=== PATIENT | female | born 1990 | race Caucasian/White ===

== ENCOUNTER → 2017-03-27 | Outpatient (CLI) | payer OTHER ==
[2017-03-27 15:01] LABS: Basophils % (A) 1 %; CH 30.2; CHCM 33.8; Eosinophils % (A) 1 %; HCT 35.6 % (34.0-46.0); HDW 2.64; HGB 12.1 gm/dL (11.4-16.0); Luc # (Auto) 0.07; Luc % (Auto) 2; Lymphocytes # (A) 1.2 k/uL (1.0-4.8); Lymphocytes % (A) 37 %; MCH 30.5 pg (25.0-35.0); MCV 89.7 fL (80.0-100.0); Mean Platelet Volume 8.7; Monocytes # (A) 0.2 k/uL (0-1.0); Monocytes % (A) 6 %; Neutrophils # (A) 1.7 k/uL (1.3-7.7); Neutrophils % (A) 53 %; RBC 3.97 m/uL (3.80-5.40); RDW 12.9 % (11.5-15.5); WBC 3.2 k/uL (3.8-10.6); WBC (Perox) 3.28
[2017-03-27 16:15] LABS: ALT 17 U/L (9-52); AST 15 U/L (14-36); Alkaline Phosphatase 30 U/L (38-126); Anion Gap 6 mmol/L; Blood Urea Nitrogen 19 mg/dL (7-17); Calcium 9.1 mg/dL (8.4-10.2); Carbon Dioxide 26 mmol/L (22-30); Chloride 109 mmol/L (98-107); Glucose 86 mg/dL (74-99); Non-African American GFR(MDRD) >60 (>60 ml/min/1.73 sqM); Potassium 4.2 mmol/L (3.5-5.1); Sodium 141 mmol/L (137-145); Total Bilirubin 0.4 mg/dL (0.2-1.3); Total Protein 6.6 g/dL (6.3-8.2)
[2017-03-27 16:47] LABS: Hepatitis B Surface Ag Index 0.07
[2017-03-27 19:10] LABS: Treponemal Ab Non-Reactive (Non-Reactive)
[2017-03-27 19:39] LABS: HSV I IgG Interp POSITIVE (NEGATIVE); HSV II IgG Interp NEGATIVE (NEGATIVE)
[2017-03-28 07:56] LABS: HIV-1/HIV-2 Ab Screen NONREAC (NON REAC)
== END | disposition home or self-care (01) ==
LOC: LABWHC1 14:29
PROVIDERS: ATTEND Obstetrics & Gynecology
DX: F33.1 Major depressive disorder, recurrent, moderate (principal); Z11.3 Encounter for screening for infections with a predominantly sexual mode of transmission
CPT/HCPCS: 36415; 80053; 84439; 84443; 85025; 86695; 86696; 86780; 87340; 87389

== ENCOUNTER 2019-03-25 19:23 | Emergency (ER) | payer OTHER ==
[2019-03-25 19:51] VITALS: TEMP 98.6
[2019-03-25 20:18] LABS: Amorphous Sediment,Urine Rare /hpf; Appearance,Urine Cloudy (Clear); Bacteria,Urine Occasional /hpf; Bilirubin,Urine 3+ (Negative); Blood,Urine Negative (Negative); Color,Urine Dark Brown; Glucose,Urine (UA) Negative (Negative); Ketones,Urine Negative (Negative); Leukocyte Esterase,Urine Trace (Negative); Mucus,Urine Many /hpf; Nitrite,Urine Positive (Negative); PH, Urine 8.5 (5.0-8.0); Protein,Urine 2+ (Negative); RBC,Urine 3 /hpf (0-5); Specific Gravity,Urine 1.027 (1.001-1.035); Squamous Epithelial Cell,Urine 12 /hpf (0-4); Urobilinogen,Urine >12.0 mg/dL (<2.0)
[2019-03-25] MEDS ORDERED: SULFAMETH-TMP DS STARTER PACK 2 TAB BTL PO STA (20:35)
[2019-03-25] MEDS ORDERED: CEPHALEXIN 500MG STARTER PACK 4 CAP BTL PO STA (20:36)
--- NOTE | 2019-03-25 20:41 | ED ---
General Adult HPI - General Chief complaint: Urogenital Stated complaint: UTI Time Seen by Provider: 03/25/19 20:27 Source: patient, RN notes reviewed Mode of arrival: ambulatory Limitations: no limitations - History of Present Illness Initial comments: Patient is a pleasant 28-year-old female presenting to the emergency Department with complaints of dysuria. Symptoms have been present for over a week now. Patient has been taking [id number] Azo without much improvement of symptoms. Patient complains of urinary frequency and urgency. Patient has some mild dysuria. No suprapubic pain or abdominal pain. No nausea vomiting. No color change of the skin. - Related Data Home Medications Medication Instructions Recorded Confirmed ALPRAZolam [Xanax] 2 mg PO TID PRN 06/17/16 06/17/16 Citalopram Hydrobromide 20 mg PO DAILY 06/17/16 06/17/16 [Citalopram HBr] Ibuprofen [Motrin] 800 mg PO Q6HR PRN 06/17/16 06/17/16 Previous Rx's Medication Instructions Recorded ALPRAZolam [Xanax] 0.5 mg PO DAILY PRN #5 tablet 06/17/16 Cephalexin [Keflex] 500 mg PO Q12HR #7 cap 06/17/16 Ibuprofen [Motrin] 800 mg PO Q8HR PRN #10 tab 06/17/16 Loratadine-Pseudoeph 5-120 mg 1 each PO Q12HR #7 tab 06/17/16 [Claritin-D 12 HR] Cephalexin [Keflex] 500 mg PO QID #40 cap 03/25/19 Allergies Allergy/AdvReac Type Severity Reaction Status Date / Time No Known Allergies Allergy Verified 03/25/19 19:51 Review of Systems ROS Statement: Those systems with pertinent positive or pertinent negative responses have been documented in the HPI. ROS Other: All systems not noted in ROS Statement are negative. Constitutional: Denies: fever Eyes: Denies: eye pain ENT: Denies: ear pain Respiratory: Denies: cough Cardiovascular: Denies: chest pain Endocrine: Denies: fatigue Gastrointestinal: Denies: abdominal pain, vomiting Genitourinary: Reports: urgency, dysuria, frequency Musculoskeletal: Denies: back pain Skin: Denies: rash Neurological: Denies: weakness Past Medical History Past Medical History: No Reported History Past Surgical History: No Surgical Hx Reported Past Psychological History: Anxiety, Depression Smoking Status: Current every day smoker Past Alcohol Use History: None Reported Past Drug Use History: None Reported General Exam Limitations: no limitations General appearance: alert, in no apparent distress Head exam: Present: atraumatic Eye exam: Present: normal appearance. Absent: scleral icterus ENT exam: Present: normal oropharynx Neck exam: Present: normal inspection Respiratory exam: Present: normal lung sounds bilaterally Cardiovascular Exam: Present: regular rate, normal rhythm Expanded Peripheral pulses: 2+: Dorsalis Pedis (R), Dorsalis Pedis (L) GI/Abdominal exam: Present: soft. Absent: distended, tenderness, organomegaly Extremities exam: Present: normal inspection. Absent: pedal edema, calf tend erness Neurological exam: Present: alert Psychiatric exam: Present: normal affect, normal mood Skin exam: Present: normal color. Absent: rash Course Vital Signs 03/25/19 19:48 Temperature 98.6 F Pulse Rate 78 Respiratory 18 Rate Blood Pressure 124/78 O2 Sat by Pulse 98 Oximetry - Reevaluation(s) Reevaluation #1: 03/25/19 20:44 Urine will be added prior to patient discharge and nursing staff will update patient Medical Decision Making - Medical Decision Making Patient advised specifically of need to follow-up regarding bilirubin and urobilinogen in the urine and need for further testing for this. - Lab Data Lab Results 03/25/19 Range/Units 20:00 Urine Color Dark Brown Urine Appearance Cloudy H (Clear) Urine pH 8.5 H (5.0-8.0) Ur Specific [place] 1.027 (1.001-1.035) Urine Protein 2+ H (Negative) Urine Glucose (UA) Negative (Negative) Urine Ketones Negative (Negative) Urine Blood Negative (Negative) Urine Nitrite Positive H (Negative) Urine Bilirubin 3+ H (Negative) Urine Urobilinogen >12.0 (<2.0) mg/dL Ur Leukocyte Esterase Trace H (Negative) Urine RBC 3 (0-5) /hpf Urine WBC 35 H (0-5) /hpf Ur Squamous Epith Cells 12 H (0-4) /hpf Amorphous Sediment Rare H (None) /hpf Urine Bacteria Occasional H (None) /hpf Urine Mucus Many H (None) /hpf Disposition Clinical Impression: Cystitis Disposition: HOME SELF-CARE Condition: Stable Instructions (If sedation given, give patient instructions): Urinary Tract Infection in Women (ED) Additional Instructions: Please follow-up with primary care physician in the next day or 2 for recheck. Return for fevers, abdominal pain, color change of the skin, uncontrolled vomiting, worsening symptoms or other concerns. Discontinue Azo. Please have primary care physician do further evaluation including repeat urinalysis, and blood work including evaluation for liver disease. Prescriptions: Cephalexin [Keflex] 500 mg PO QID #40 cap Is patient prescribed a controlled substance at d/c from ED?: No Referrals: Adrian Lopes DO [Primary Care Provider] - 1-2 days Time of Disposition: 20:40
[2019-03-25 21:12] VITALS: BP 133/75; PULSE 81; RESP 16
== END 2019-03-25 21:10 | disposition home or self-care (01) ==
LOC: EC 19:23
DX: N30.90 Cystitis, unspecified without hematuria (principal); F32.9 Major depressive disorder, single episode, unspecified; F41.9 Anxiety disorder, unspecified; F17.200 Nicotine dependence, unspecified, uncomplicated; Z79.899 Other long term (current) drug therapy
CPT/HCPCS: 81001; 81025; 87077; 87086; 87186; 99283

== ENCOUNTER 2019-04-13 20:07 | Emergency (ER) | payer OTHER ==
[2019-04-13] MEDS ORDERED: SODIUM CHLORIDE 0.9% 1,000 ML IV STA (20:30)
--- NOTE | 2019-04-13 21:05 | ED ---
General Adult HPI - General Chief complaint: Abdominal Pain Stated complaint: Abd Pain Time Seen by Provider: 04/13/19 20:22 Source: patient, family, RN notes reviewed, old records reviewed Mode of arrival: ambulatory Limitations: no limitations - History of Present Illness Initial comments: 28-year-old female patient with no pertinent past medical history presents to ED with generalized abdominal pain. Patient reports this has been waxing and waning for approximately 3 months. Patient reports that after she eats she feels bloated and has abdominal pain. Patient denies any focal areas of abdominal tenderness. Patient reports nausea without emesis. Patient also reports that she is currently being treated for a urinary tract infection. Denies any other complaints. Systemic: Pt denies fatigue, fever/chills, rash. Pt denies weakness, night swe ats, weight loss. Neuro: Pt denies headache, visual disturbances, syncope or pre-syncope. HEENT: Pt denies ocular discharge or irritation, otalgia, rhinorrhea, pharyngitis or notable lymphadenopathy. Cardiopulmonary: Pt denies chest pain, SOB, heart palpitations, dyspnea on exertion. Abdominal/GI: Pt denies abdominal pain, n/v/d. : Pt denies dysuria, burning w/ urination, frequency/urgency. Denies new onset urinary or bowel incontinence. MSK: Pt denies myalgia, loss of strength or function in extremities. Neuro: Pt denies new onset weakness, paresthesias. - Related Data Home Medications Medication Instructions Recorded Confirmed Falmina 0.1-20mg 1 tab PO DAILY 03/25/19 04/13/19 Cephalexin [Keflex] 500 mg PO Q6H 04/13/19 04/13/19 Dextroamphetamine/Amphetamine 30 mg PO DAILY 04/13/19 04/13/19 [Adderall] Venlafaxine HCl [Effexor XR] 75 mg PO DAILY 04/13/19 04/13/19 Previous Rx's Medication Instructions Recorded Metoclopramide HCl [Reglan] 10 mg PO Q24HR PRN 7 Days #7 tab 04/13/19 Allergies Allergy/AdvReac Type Severity Reaction Status Date / Time No Known Allergies Allergy Verified 04/13/19 21:30 Review of Systems ROS Statement: Those systems with pertinent positive or pertinent negative responses have been documented in the HPI. ROS Other: All systems not noted in ROS Statement are negative. Past Medical History Past Medical History: No Reported History History of Any Multi-Drug Resistant Organisms: None Reported Past Surgical History: No Surgical Hx Reported Past Psychological History: Anxiety, Depression Smoking Status: Current some day smoker Past Alcohol Use History: Occasional Past Drug Use History: None Reported General Exam - General Exam Comments Initial Comments: Constitutional: NAD, AOX3, Pt has pleasant affect. HEENT: NC/AT, trachea midline, neck supple, no lymphadenopathy. Posterior pharynx non erythematous, without exudates. External ears appear normal, without discharge. Mucous membranes moist. Eyes PERRLA, EOM intact. There is no scleral icterus. No pallor noted. Cardiopulmonary: RRR, no murmurs, rubs or gallops, no JVD noted. Lungs CTAB in anterior and posterior stuart. No peripheral edema. Abdominal exam: Abdomen soft and non-distended. Generalized mild abdominal tenderness. No focal area of abdominal tenderness. No guarding or rigidity no ecchymoses.. Bowel sounds active in LLQ. No hepatosplenomegaly. No ecchymosis Neuro: CN II-XII grossly intact. No nuchal rigidity. No raccon eyes, no garrido sign, no hemotympanum. No cervical spinal tenderness. MSK: No posterior calf tenderness bilaterally, homans sign negative bilaterally. Posterior tibialis and radial pulse +2 bilaterally. Sensation intact in upper and lower extremities. Full active ROM in upper and lower extremities, 5/5 stregnth. Limitations: no limitations Course Vital Signs 04/13/19 04/13/19 20:08 22:00 Temperature 97.9 F Pulse Rate 70 68 Respiratory 20 18 Rate Blood Pressure 135/66 117/78 O2 Sat by Pulse 96 98 Oximetry Medical Decision Making - Medical Decision Making 28-year-old female patient with no pertinent past medical history presents to ED with generalized abdominal pain. Patient reports this has been waxing and waning for approximately 3 months. Patient reports that after she eats she feels bloated and has abdominal pain. Patient denies any focal areas of abdominal tenderness. Patient reports nausea without emesis. Patient also reports that she is currently being treated for a urinary tract infection. Denies any other complaints. Pt VSS, afebrile. Physical exam displayed: Abdomen soft and non-distended. Generalized mild abdominal tenderness. No focal area of abdominal tenderness. No guarding or rigidity no ecchymoses. Laboratory investigations revealed nonpassive CBC, CMP. Lactic acid within normal limits. Lipase within normal limits. UA noncompressive will be cultured. CT and pelvis displayed no evidence of renal stone or obstruction, some appendicitis. Dilated stomach related to gastric outlet obstruction or gastroparesis. Patient does report that she did eat prior to coming to ER. Patient discharged with GI follow-up. Patient will be prescribed Reglan for possible gastroparesis. Case discussed with Dr. Espinoza. - Lab Data Result diagrams: 04/13/19 20:52 04/13/19 20:52 Lab Results 04/13/19 04/13/19 04/13/19 Range/Units 20:52 20:52 20:52 WBC 5.5 (3.8-10.6) k/uL RBC 4.62 (3.80-5.40) m/uL Hgb 12.9 (11.4-16.0) gm/dL Hct 38.3 (34.0-46.0) % MCV 82.9 (80.0-100.0) fL MCH 27.9 (25.0-35.0) pg MCHC 33.6 (31.0-37.0) g/dL RDW 13.5 (11.5-15.5) % Plt Count 194 (150-450) k/uL Neutrophils % 61 % Lymphocytes % 28 % Monocytes % 7 % Eosinophils % 2 % Basophils % 1 % Neutrophils # 3.4 (1.3-7.7) k/uL Lymphocytes # 1.5 (1.0-4.8) k/uL Monocytes # 0.4 (0-1.0) k/uL Eosinophils # 0.1 (0-0.7) k/uL Basophils # 0.0 (0-0.2) k/uL Sodium 141 (137-145) mmol/L Potassium 4.4 (3.5-5.1) mmol/L Chloride 110 H (98-107) mmol/L Carbon Dioxide 24 (22-30) mmol/L Anion Gap 7 mmol/L BUN 18 H (7-17) mg/dL Creatinine 0.73 (0.52-1.04) mg/dL Est GFR (CKD-EPI)AfAm >90 (>60 ml/min/1.73 sqM) Est GFR (CKD-EPI)NonAf >90 (>60 ml/min/1.73 sqM) Glucose 103 H (74-99) mg/dL Plasma Lactic Acid Mohan (0.7-2.0) mmol/L Calcium 9.3 (8.4-10.2) mg/dL Total Bilirubin 0.2 (0.2-1.3) mg/dL AST 18 (14-36) U/L ALT 15 (9-52) U/L Alkaline Phosphatase 33 L (38-126) U/L Total Protein 6.8 (6.3-8.2) g/dL Albumin 4.1 (3.5-5.0) g/dL Lipase 102 (23-300) U/L Urine Color Urine Appearance (Clear) Urine pH (5.0-8.0) Ur Specific [place] (1.001-1.035) Urine Protein (Negative) Urine Glucose (UA) (Negative) Urine Ketones (Negative) Urine Blood (Negative) Urine Nitrite (Negative) Urine Bilirubin (Negative) Urine Urobilinogen (<2.0) mg/dL Ur Leukocyte Esterase (Negative) Urine RBC (0-5) /hpf Urine WBC (0-5) /hpf Ur Squamous Epith Cells (0-4) /hpf Calcium Oxalate Crystal (None) /hpf Amorphous Sediment (None) /hpf Urine Mucus (None) /hpf Urine HCG, Qual Not Detected (Not Detectd) 04/13/19 04/13/19 Range/Units 20:52 20:52 WBC (3.8-10.6) k/uL RBC (3.80-5.40) m/uL Hgb (11.4-16.0) gm/dL Hct (34.0-46.0) % MCV (80.0-100.0) fL MCH (25.0-35.0) pg MCHC (31.0-37.0) g/dL RDW (11.5-15.5) % Plt Count (150-450) k/uL Neutrophils % % Lymphocytes % % Monocytes % % Eosinophils % % Basophils % % Neutrophils # (1.3-7.7) k/uL Lymphocytes # (1.0-4.8) k/uL Monocytes # (0-1.0) k/uL Eosinophils # (0-0.7) k/uL Basophils # (0-0.2) k/uL Sodium (137-145) mmol/L Potassium (3.5-5.1) mmol/L Chloride (98-107) mmol/L Carbon Dioxide (22-30) mmol/L Anion Gap mmol/L BUN (7-17) mg/dL Creatinine (0.52-1.04) mg/dL Est GFR (CKD-EPI)AfAm (>60 ml/min/1.73 sqM) Est GFR (CKD-EPI)NonAf (>60 ml/min/1.73 sqM) Glucose (74-99) mg/dL Plasma Lactic Acid Mohan 1.5 (0.7-2.0) mmol/L Calcium (8.4-10.2) mg/dL Total Bilirubin (0.2-1.3) mg/dL AST (14-36) U/L ALT (9-52) U/L Alkaline Phosphatase (38-126) U/L Total Protein (6.3-8.2) g/dL Albumin (3.5-5.0) g/dL Lipase (23-300) U/L Urine Color Yellow Urine Appearance Clear (Clear) Urine pH 6.0 (5.0-8.0) Ur Specific [place] 1.031 (1.001-1.035) Urine Protein Trace H (Negative) Urine Glucose (UA) Negative (Negative) Urine Ketones Negative (Negative) Urine Blood Small H (Negative) Urine Nitrite Negative (Negative) Urine Bilirubin Negative (Negative) Urine Urobilinogen 2.0 (<2.0) mg/dL Ur Leukocyte Esterase Small H (Negative) Urine RBC 2 (0-5) /hpf Urine WBC 4 (0-5) /hpf Ur Squamous Epith Cells 10 H (0-4) /hpf Calcium Oxalate Crystal Rare H (None) /hpf Amorphous Sediment Rare H (None) /hpf Urine Mucus Occasional H (None) /hpf Urine HCG, Qual (Not Detectd) Disposition Clinical Impression: Abdominal pain Disposition: HOME SELF-CARE Condition: Stable Instructions (If sedation given, give patient instructions): Abdominal Pain (ED) Additional Instructions: Patient to adhere to previously discussed treatment plan and will take medication(s) as directed. Patient to follow up with PCP in 1-2 days. Patient to return to ED if symptoms do not improve. Follow-up with primary care provider and GI consult tomorrow. Take medication as directed. Return to ER condition worsens. Return to ER if you began vomiting. Prescriptions: Metoclopramide HCl [Reglan] 10 mg PO Q24HR PRN 7 Days #7 tab PRN Reason: Nausea Is patient prescribed a controlled substance at d/c from ED?: No Referrals: Adrian Lopes DO [Primary Care Provider] - 1-2 days Aubrey Armas MD [STAFF PHYSICIAN] - 1-2 days
[2019-04-13 21:13] LABS: Amorphous Sediment,Urine Rare /hpf; Appearance,Urine Clear (Clear); Bilirubin,Urine Negative (Negative); Blood,Urine Small (Negative); Calcium Oxalate Crystals,Urine Rare /hpf; Color,Urine Yellow; Glucose,Urine (UA) Negative (Negative); Ketones,Urine Negative (Negative); Leukocyte Esterase,Urine Small (Negative); Mucus,Urine Occasional /hpf; Nitrite,Urine Negative (Negative); Protein,Urine Trace (Negative); RBC,Urine 2 /hpf (0-5); Specific Gravity,Urine 1.031 (1.001-1.035); Squamous Epithelial Cell,Urine 10 /hpf (0-4); WBC,Urine 4 /hpf (0-5)
[2019-04-13 21:17] LABS: Basophils % (A) 1 %; Eosinophils # (A) 0.1 k/uL (0-0.7); Eosinophils % (A) 2 %; HCT 38.3 % (34.0-46.0); HGB 12.9 gm/dL (11.4-16.0); Lymphocytes # (A) 1.5 k/uL (1.0-4.8); Lymphocytes % (A) 28 %; MCH 27.9 pg (25.0-35.0); MCHC 33.6 g/dL (31.0-37.0); MCV 82.9 fL (80.0-100.0); Mean Platelet Volume 8.5; Monocytes # (A) 0.4 k/uL (0-1.0); Monocytes % (A) 7 %; Neutrophils # (A) 3.4 k/uL (1.3-7.7); Neutrophils % (A) 61 %; Platelet Count 194 k/uL (150-450); RBC 4.62 m/uL (3.80-5.40); RDW 13.5 % (11.5-15.5); WBC 5.5 k/uL (3.8-10.6)
[2019-04-13 21:23] LABS: ALT 15 U/L (9-52); AST 18 U/L (14-36); African American GFR (CKD) >90 (>60 ml/min/1.73 sqM); Albumin 4.1 g/dL (3.5-5.0); Alkaline Phosphatase 33 U/L (38-126); Anion Gap 7 mmol/L; Blood Urea Nitrogen 18 mg/dL (7-17); Calcium 9.3 mg/dL (8.4-10.2); Carbon Dioxide 24 mmol/L (22-30); Chloride 110 mmol/L (98-107); Glucose 103 mg/dL (74-99); Lipase 102 U/L (23-300); Potassium 4.4 mmol/L (3.5-5.1); Sodium 141 mmol/L (137-145); Total Bilirubin 0.2 mg/dL (0.2-1.3); Total Protein 6.8 g/dL (6.3-8.2)
--- NOTE | 2019-04-13 21:43 | CT ---
EXAMINATION TYPE: CT abdomen pelvis w con DATE OF EXAM: 04/13/2019 COMPARISON: None HISTORY: Rt flank pain CT DLP: 740.3 mGycm Automated exposure control for dose reduction was used. TECHNIQUE: Helical acquisition of images was performed from the lung bases through the pelvis. CONTRAST: Performed without Oral Contrast and with IV Contrast, patient injected with 100 mL of Isovue 300. FINDINGS: Lung bases are clear. There is no pleural effusion. Heart size is normal. Stomach is large. Liver spleen pancreas appear normal. Bile ducts are not dilated. Gallbladder is contracted. There is no adrenal mass. Kidneys show satisfactory contrast opacification. There is no hydronephrosi s. There is no retroperitoneal adenopathy. Bladder distends smoothly. Uterus is anteverted. There is no free fluid in the pelvis. There is no inguinal hernia. There is no sign of a pelvic mass. Appendix is not seen. There is no sign of thickened appendix. The lumbar vertebra have normal spacing and alignment. Bony pelvis is intact. There is no bony destructive process. IMPRESSION: NO EVIDENCE OF RENAL STONE OR OBSTRUCTION. NO SIGN OF APPENDICITIS. APPENDIX NOT SEEN. DILATED STOMACH COULD RELATE TO GASTRIC OUTLET OBSTRUCTION OR GASTROPARESIS.
[2019-04-13 22:01] VITALS: RESP 18
[2019-04-13 22:42] VITALS: BP 116/80; PULSE 63; TEMP 98.2
== END 2019-04-13 22:41 | disposition home or self-care (01) ==
LOC: EC 20:07
DX: R10.84 Generalized abdominal pain (principal); R14.0 Abdominal distension (gaseous); R11.0 Nausea; R10.817 Generalized abdominal tenderness; K31.89 Other diseases of stomach and duodenum; N39.0 Urinary tract infection, site not specified; F41.9 Anxiety disorder, unspecified; F32.9 Major depressive disorder, single episode, unspecified; F17.200 Nicotine dependence, unspecified, uncomplicated; Z79.899 Other long term (current) drug therapy
CPT/HCPCS: 36415; 80053; 83605; 83690; 85025; 81001; 81025; 74177; 99284; 96360; 96361; Q9967

== ENCOUNTER 2019-10-31 17:11 | Emergency (ER) | payer OTHER | END 2019-10-31 17:50 | disposition left against medical advice (07) | LOC: EC 17:11 | DX: K92.2 Gastrointestinal hemorrhage, unspecified (principal); Z53.21 Procedure and treatment not carried out due to patient leaving prior to being seen by health care provider | CPT/HCPCS: 99499 ==

== ENCOUNTER 2020-06-05 13:30 | Inpatient (IN) | payer MEDICAID, OTHER ==
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
[2020-06-05 15:24] LABS: Amphetamine Screen,Urine Detected (NotDetected); Barbiturate Screen,Urine Not Detected (NotDetected); Benzodiazepines Screen,Urine Not Detected (NotDetected); Cocaine Screen,Urine Not Detected (NotDetected); Methadone Screen, Urine Not Detected (NotDetected); Opiate Screen,Urine Not Detected (NotDetected); Oxycodone Screen, Urine Not Detected (NotDetected); Phencyclidine Screen,Urine Not Detected (NotDetected); Tricyclic Antidepressant,Urine Not Detected (NotDetected); Urn Cannabinoid Scrn Not Detected (NotDetected)
[2020-06-05] MEDS ORDERED: LORazepam 2 MG/ML INJ IM STA (15:46)
[2020-06-05] MEDS ORDERED: ZIPRASIDONE 20 MG VIAL IM STA (16:19)
[2020-06-06] MEDS ORDERED: ZIPRASIDONE 20 MG VIAL IM PRN (05:56)
[2020-06-06] MEDS: LORazepam 1 MG TAB PO PRN ×2 (07:15→22:03)
[2020-06-06 08:30] LABS: Appearance,Urine Turbid (Clear); Bilirubin,Urine Negative (Negative); Blood,Urine Large (Negative); Color,Urine Light Orange; Glucose,Urine (UA) Negative (Negative); Ketones,Urine Trace (Negative); Leukocyte Esterase,Urine Large (Negative); Mucus,Urine Few /hpf; Nitrite,Urine Negative (Negative); PH, Urine 6.5 (5.0-8.0); Protein,Urine 3+ (Negative); RBC,Urine >182 /hpf (0-5); Specific Gravity,Urine 1.025 (1.001-1.035); Squamous Epithelial Cell,Urine 14 /hpf (0-4); WBC,Urine >182 /hpf (0-5)
[2020-06-06] MEDS ORDERED: VENLAFAXINE HCL ER 75 MG CAP PO SCH (09:00)
[2020-06-06] MEDS ORDERED: PHENAZOPYRIDINE 100 MG TAB PO PRN (09:29)
[2020-06-06] MEDS: NICOTINE 14MG/24HR PATCH TRANSDERM SCH (10:34)
[2020-06-06] MEDS: NITROFURANTOIN MONOHYD/M-CRYST 100 MG CAP PO SCH ×2 (10:34→21:46)
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
[2020-06-06] MEDS: OLANZapine 5 MG TAB PO SCH (21:46)
[2020-06-06] MEDS: ACETAMINOPHEN TAB 325 MG TAB PO PRN (21:47)
--- NOTE | 2020-06-07 01:56 | P.MDCNMH ---
History of Present Illness H&P Date: 06/06/20 Chief Complaint: Suicidal ideation Patient is a 30-year-old female with a known history of anxiety/depression and methamphetamine use was brought to ER by her father due to bizarre behavior and saying crazy things. As per her father patient was also suicidal. Patient does have chronic polysubstance abuse and also alcohol abuse. Patient is currently admitted to inpatient psychiatric unit. Currently patient denied any complaints of chest pain or shortness of breath. No complaints of abdominal pain, nausea vomiting or diarrhea or dysuria. Patient says she has some lower abdominal pain. Patient also complaining of left ear pain but denies any discharge. Urinalysis showed turbid with large leukocyte esterase with greater than 182 RBCs and WBCs. UDS is positive for amphetamines and methamphetamines. Review of Systems Constitutional: Patient denies any fever or chills . No generalized weakness or weight loss. Abdomen: Patient denied nausea vomiting and diarrhea and abdominal pain. Cardiovascular: Patient denies any chest pain or short of breath no palpitations. Respiratory: patient denied any cough is from production. No shortness of breath Neurologic: Patient denied any numbness or tingling headache. Musculoskeletal: Patient denies any complaints of joint swelling or deformity. Skin: Negative Psychiatric: Negative Endocrine: No heat or cold intolerance. No recent weight gain. Genitourinary: No dysuria or hematuria. All other 14 point ROS negative except the above Past Medical History Past Medical History: No Reported History History of Any Multi-Drug Resistant Organisms: None Reported Past Surgical History: No Surgical Hx Reported Past Psychological History: Anxiety, Depression Past Alcohol Use History: Occasional Past Drug Use History: Methamphetamine Medications and Allergies Home Medications Medication Instructions Recorded Confirmed Type Dextroamphetamine/Amphetamine 30 mg PO DAILY 04/13/19 06/05/20 History [Adderall] Venlafaxine HCl [Effexor XR] 150 mg PO DAILY 04/13/19 06/05/20 History Orsythia 0.1-0.02mg 1 tab PO DAILY 06/05/20 06/05/20 History Allergies Allergy/AdvReac Type Severity Reaction Status Date / Time No Known Allergies Allergy Verified 06/05/20 16:40 Physical Exam Vitals: Vital Signs Resp 06/05/20 16:04 20 Intake and Output 06/06/20 06/06/20 06/06/20 06:59 14:59 22:59 Other: Weight 59.421 kg PHYSICAL EXAMINATION: Patient is lying in the bed comfortably, no acute distress, awake alert and oriented.. HEENT: Normocephalic. Neck is supple. Pupils reactive. Nostrils clear. Oral cavity is moist. Left Ear exam reveal no drainage. Neck reveals no JVD, carotid bruits, or thyromegaly. CHEST EXAMINATION: Trachea is central. Symmetrical expansion. Lung stuart clear to auscultation and percussion. CARDIAC: Normal S1, S2 with no gallops. No murmurs ABDOMEN: Soft. Bowel sounds normal. No organomegaly. No abdominal bruits. Extremities: reveal no edema. No clubbing or cyanosis Neurologically awake, alert, oriented x2-3 with well-coordinated movements. No focal deficits noted Skin: No rash or skin lesions. Psychiatric: Coperative. Nonsuicidal Musculoskeletal: No joint swelling or deformity. Normal range of motion. Cranial Nerve Examination - Cranial Nerves Cranial Nerve I- Olfactory: Intact Cranial Nerve II- Optic: Intact Cranial Nerve III- Oculomotor: Intact Cranial Nerve IV- Trochlear: Intact Cranial Nerve V- Trigeminal: Intact Cranial Nerve - Abducens: Intact Cranial Nerve VII- Facial: Intact Cranial Nerve VIII- Auditory: Intact Cranial Nerve IX- Glossopharyngeal: Intact Cranial Nerve X- Vagus: Intact Cranial Nerve XI- Accessory: Intact Cranial Nerve XII- Hypoglossal: Intact Results Labs: Abnormal Lab Results - Last 24 Hours (Table) 06/06/20 Range/Units 07:30 Urine Appearance Turbid H (Clear) Urine Protein 3+ H (Negative) Urine Ketones Trace H (Negative) Urine Blood Large H (Negative) Ur Leukocyte Esterase Large H (Negative) Urine RBC >182 H (0-5) /hpf Urine WBC >182 H (0-5) /hpf Urine WBC Clumps Many H (None) /hpf Ur Squamous Epith Cells 14 H (0-4) /hpf Urine Mucus Few H (None) /hpf Assessment and Plan Assessment: Acute psychosis Polysubstance abuse Acute urinary tract infection Possible acute otitis Media Anxiety and depression. Plan: Patient will be continued current psychiatric medications and plan. We will start on antibiotics in the form of Augmentin to cover otitis media and acute urinary tract infection. Follow-up urine culture reports. Follow-up CBC and BMP and TSH levels. Further recommendations based on clinical course. Thank you for your consult.
--- NOTE | 2020-06-07 08:55 | P.PN ---
Progress Note - Text Progress Note Date: 06/07/20 I did review medical records ,I discussed case in team meeting ,I tried to interview patient as she was laying in bed however she refused saying that she is tired TODAY VITALS:Temp:98.5,Pulse:92,R:18,BP:107/69 Slept 6 hours No behavioral issues did require PRN Ativan last night for anxiety Patient was started on Augmentin for UTI and Ear infection Interim history: According to staff ,patient has been laying in bed most of day,her father called unit and wants to be sure that patient will be referred to [facility] rehab,staff explained to him that he has to ask court for drug rehab [place] , probate court is on 06/20, She would not get out of bed for the interview. She would not make eye contact. Mental status exam: She presented as a disheveled appearing female who is laying in bed. She would not make eye contact or answer questions. Clinical Problems: Psychosis NOS,rule out substance induced psychosis ,Methamphetamine use disorder ,alcohol use disorder Plan: Continue inpatient. Continue her Effexor XR 75 mg ,Zyprexa 5 mg HS for psychosis ,PRN ativan and Geodon for agitation ,deferral meeting on 06/08 wall worker to coordinate discharge and aftercare. Encourage participation in therapeutic groups and activities.
[2020-06-07] MEDS: VENLAFAXINE HCL ER 75 MG CAP PO SCH (11:08)
[2020-06-07] MEDS: AMOXIC-POT CLAV 875-125MG 1 EACH TAB PO SCH ×2 (11:08→21:54)
[2020-06-07] MEDS: NICOTINE 14MG/24HR PATCH TRANSDERM SCH (11:08)
[2020-06-07] MEDS: OLANZapine 5 MG TAB PO SCH (21:54)
--- NOTE | 2020-06-08 09:26 | P.PN ---
Progress Note - Text Progress Note Date: 06/08/20 I did review medical records ,I discussed case in team meeting ,I tried to interview patient as she was laying in bed however she refused saying that she is tired Slept 6 hours No behavioral issues ,no PRN for last 24 hours Patient complaining of pain left ear Patient has been in bed most of day ,just up for meal and medications ,no participation in any groups Interim history: Patient stated that she is tired and she want to go home then when I asked her about any physical pain ,she replied "Yes my left ear",she denies any suicidal or homicidal ideation She would not get out of bed for the interview. She would not make eye contact. Mental status exam: She presented as a disheveled appearing female who is laying in bed. Unkept ,disheveled ,.non spontaneous speech but coherent ,most of her answers are just one word "yes or no",denies any hallucination ,denies any suicidal or homicidal ,no insight to her addiction "I just want to go home" Clinical Problems: Psychosis NOS,rule out substance induced psychosis ,Methamphetamine use disorder ,alcohol use disorder Plan: Continue inpatient. Continue her Effexor XR 75 mg ,decrease Zyprexa 2.5 mg to decrease AM sedation ,PRN ativan and Geodon for agitation ,deferral meeting on 06/08 hotel maintenance worker to coordinate discharge and aftercare. Encourage participation in therapeutic groups and activities.
[2020-06-08 09:38] LABS: Basophils # (A) 0.1 k/uL (0-0.2); Basophils % (A) 1 %; Eosinophils # (A) 0.2 k/uL (0-0.7); Eosinophils % (A) 4 %; HCT 40.4 % (34.0-46.0); HGB 13.1 gm/dL (11.4-16.0); Lymphocytes # (A) 1.3 k/uL (1.0-4.8); Lymphocytes % (A) 31 %; MCH 27.4 pg (25.0-35.0); MCHC 32.4 g/dL (31.0-37.0); MCV 84.5 fL (80.0-100.0); Mean Platelet Volume 7.6; Monocytes # (A) 0.4 k/uL (0-1.0); Monocytes % (A) 9 %; Neutrophils # (A) 2.1 k/uL (1.3-7.7); Neutrophils % (A) 53 %; Platelet Count 228 k/uL (150-450); RBC 4.77 m/uL (3.80-5.40); RDW 13.5 % (11.5-15.5); WBC 4.1 k/uL (3.8-10.6)
[2020-06-08 10:04] LABS: ALT 15 U/L (4-34); AST 17 U/L (14-36); African American GFR (CKD) >90 (>60 ml/min/1.73 sqM); Albumin 3.6 g/dL (3.5-5.0); Alkaline Phosphatase 45 U/L (38-126); Anion Gap 5 mmol/L; Blood Urea Nitrogen 8 mg/dL (7-17); Calcium 9.1 mg/dL (8.4-10.2); Carbon Dioxide 31 mmol/L (22-30); Chloride 104 mmol/L (98-107); Glucose 89 mg/dL (74-99); Non-African American GFR(CKD) >90 (>60 ml/min/1.73 sqM); Potassium 3.6 mmol/L (3.5-5.1); Sodium 140 mmol/L (137-145); Total Bilirubin 0.4 mg/dL (0.2-1.3); Total Protein 6.2 g/dL (6.3-8.2)
[2020-06-08] MEDS: AMOXIC-POT CLAV 875-125MG 1 EACH TAB PO SCH ×2 (11:41→20:44)
[2020-06-08] MEDS: VENLAFAXINE HCL ER 75 MG CAP PO SCH (11:41)
[2020-06-08] MEDS: NICOTINE 14MG/24HR PATCH TRANSDERM SCH (11:41)
[2020-06-08] MEDS: LORazepam 1 MG TAB PO PRN (17:22)
[2020-06-08] MEDS ORDERED: OLANZapine 2.5 MG TAB PO SCH (21:00)
[2020-06-08] MEDS: CEFDINIR 300 MG CAP PO SCH (22:11)
[2020-06-09] MEDS: VENLAFAXINE HCL ER 75 MG CAP PO SCH (09:00)
[2020-06-09] MEDS: CEFDINIR 300 MG CAP PO SCH ×2 (09:00→20:23)
[2020-06-09] MEDS: NICOTINE 14MG/24HR PATCH TRANSDERM SCH (09:00)
[2020-06-09] MEDS: ACETAMINOPHEN TAB 325 MG TAB PO PRN (12:22)
[2020-06-09] MEDS: OLANZapine 2.5 MG TAB PO SCH ×2 (16:42→21:44)
--- NOTE | 2020-06-09 18:37 | PN ---
PROGRESS NOTE DATE OF SERVICE: 06/09/2020 CHIEF COMPLAINT: The patient was admitted on petition filled out by her father for disorganized behavior and bizarre thinking. She had been using methamphetamine, was not sleeping or eating and had suicidal thinking. INTERVAL HISTORY: Patient has been doing fair. She had a quiet evening last night. She comes out in the day area, though she tends to keep to herself more than not. She has not been attending groups. She slept fairly well last night. She says she has a lot of tiredness in the day. She wonders if it is due to her medications. When I talked to her about substance use issues, she seems to go back and forth. She initially tended to minimize use of alcohol or methamphetamines, though ultimately she started talking about how she was drinking pretty consistently over the last year and said she would drink at least a half a pint of alcohol at least 3 days a week. She said she started using methamphetamines of late mainly to help because of depression. It is noted that the patient would choose to go to [facility]. She said she has been there in the past and would hope to be discharged from this unit to [facility]. She accepts the idea that she needs to be in substance use treatment and then to be able to get out and get a job where she can be productive. She notes that she went to college and took some courses towards architecture. She has some thoughts about setting up a home for people coming out of snf. She says she has been making some plans regarding that, though able to acknowledge that substance use issues could derail the best of plans. She tolerates her psychotropic medications. MENTAL STATUS: Patient gave fair eye contact at best. Psychomotor activity was restless. She answered questions with brief responses. She did not say a lot. She was not spontaneous or interactive. Her thoughts were clear and coherent. Her affect was anxious. Her mood dysphoric. She seemed moderately distressed. There was no indication for thought disorder. She voiced no thoughts of harm. Cognition was clear. ASSESSMENT: I will continue the current diagnosis and treatment plan. I had an extensive discussion with the patient regarding withdrawal issues and treatment of early withdrawal. At this point, I will increase Zyprexa to 2.5 mg twice a day. I discussed that some of the tiredness she is experiencing may in fact relate to withdrawal more than anything else. I reviewed the time course of withdrawal. I discussed that on Thursday she can talk with the foster care social worker and will need to make the call to [facility] herself, for which she was prepared to do. We will focus on stabilization and discharge planning. CHERYL / YAHAIRA: [id number] /
[2020-06-09] MEDS: LORazepam 1 MG TAB PO PRN (20:23)
[2020-06-10] MEDS: ACETAMINOPHEN TAB 325 MG TAB PO PRN ×4 (05:45→21:01)
[2020-06-10] MEDS: OLANZapine 2.5 MG TAB PO SCH ×3 (08:45→20:14)
[2020-06-10] MEDS: CEFDINIR 300 MG CAP PO SCH ×2 (08:45→20:14)
[2020-06-10] MEDS: NICOTINE 14MG/24HR PATCH TRANSDERM SCH (08:45)
[2020-06-10] MEDS: VENLAFAXINE HCL ER 75 MG CAP PO SCH (08:45)
[2020-06-10] MEDS: MAGNESIUM HYDROXIDE 2,400 MG/10 ML CUP PO PRN ×2 (11:49→21:01)
--- NOTE | 2020-06-10 17:43 | PN ---
PROGRESS NOTE DATE OF SERVICE: 06/10/2020 CHIEF COMPLAINT: The patient was admitted on petition filed by her father for disorganized behavior and bizarre thinking. She had been using methamphetamine and was not sleeping or eating and had suicidal thinking. INTERVAL HISTORY: The patient has been doing fair. She had a quiet evening yesterday. She spends a fair amount of time in her room. She says she is feeling exhausted more than anything else. She slept well last night. Today she has been up. She continues to report exhaustion. She does think that the Zyprexa helps settle her nerves down some. She anticipates going to [facility], though as yet has not made contact. It is noteworthy that when I reviewed substance use issues with the patient, her initial reaction to things like her regular drinking was that she was using drinking as a treatment for her anxiety. When I talked about the negative impact and the indications of dependency including the signals of tolerance and withdrawal, she said that she recognizes that and could understand that this is likely her problem. We talked about the range of symptoms she may be having at this point would be a reflection of withdrawal more than anything else. She was in agreement with that. We discussed that she might benefit from an increase in Zyprexa which she also was in agreement with. She tolerates her psychotropic medications. MENTAL STATUS: Patient sat without restlessness. She gave fairly good eye contact. She answered questions with direct responses. Her thoughts were clear. Her affect was somewhat constricted though it was noteworthy she had a friendly manner and at times she smiled a little and showed some positive emotions. Her mood was down, though not clearly depressed. She did not appear to be significantly distressed. There was no indication of thought disorder. She voiced no thoughts of harm. Cognition was clear. ASSESSMENT: I will continue the current diagnosis and treatment plan. I will increase Zyprexa to 2.5 mg 3 times a day. I reviewed withdrawal issues at length with the patient. I suggested that she should anticipate significant withdrawal issues over the next 2 weeks and that this point she is just in the 1st week of withdrawal. We discussed that after Labor Day she may begin to see the early turnaround with some signs of improvement, though she may not be fully beyond early withdrawal until she gets into July. We discussed that some of her longer-term issues such as anxiety, depression, and attention deficit problems may look quite different once she gets into July and that it would be very difficult to predict the treatment she might need at that point or to what extent she may see gradual improvement with more time. It is noteworthy that the patient seemed very engaged in the treatment process. We will look to set up a referral to [facility] tomorrow. I encouraged the patient to talk to social work first thing in the morning and make a call for admission. We will focus on stabilization and discharge planning. MMPORSHA / YAHAIRA: [id number] /
[2020-06-11] MEDS: ACETAMINOPHEN TAB 325 MG TAB PO PRN ×2 (01:04→20:55)
--- NOTE | 2020-06-11 02:19 | CT ---
EXAMINATION TYPE: CT brain wo con DATE OF EXAM: 06/11/2020 COMPARISON: 06/17/2016 HISTORY: Left Ear/Head pain CT DLP: 1088.80 mGycm Automated exposure control for dose reduction was used. Exam performed with no contrast. Ventricles and sulci appear normal. There is no mass effect nor midline shift. There is no sign of in tracranial hemorrhage. There is fairly normal aeration of the mastoid sinuses. There is increased den sity in the left external auditory canal. There is occlusion of the external auditory meatus. I see n o focal bone destruction. IMPRESSION: Normal CT scan of the brain. Increased soft tissue density at the left external auditory canal and auditory meatus should be corre lated with the physical exam.
[2020-06-11] MEDS: NICOTINE 14MG/24HR PATCH TRANSDERM SCH (08:23)
[2020-06-11] MEDS: CEFDINIR 300 MG CAP PO SCH ×2 (08:23→20:55)
[2020-06-11] MEDS: VENLAFAXINE HCL ER 75 MG CAP PO SCH (08:23)
[2020-06-11] MEDS: OLANZapine 2.5 MG TAB PO SCH (08:23)
--- NOTE | 2020-06-11 09:14 | P.PN ---
Progress Note - Text Progress Note Date: 06/11/20 I did review medical records ,I discussed case in team meeting ,I tried to interview patient as she was laying in bed however she refused saying that she is tired Slept 6 hours No behavioral issues ,no PRN for last 24 hours On weekend Zyprexa was increased to 2.5 mg TID Patient complaining of pain left ear ,had CT brain : showed increase soft tissue density at left external auditory canal Patient has been in bed most of day ,just up for meal and medications ,no participation in any groups Interim history: Patient stated that she is tired and asking when she can go home ,she denies any psychotic features ,endorses pain in left eat ,no motivation or energy, feeling sluggish most of day ,she is focussing about her pain on left earshe denies any suicidal or homicidal ideation She would not get out of bed for the interview but she was cooperative with good eyes contact Mental status exam: She presented as a disheveled appearing female who is laying in bed. Unkept ,disheveled ,.non spontaneous speech but coherent ,most of her answers are just one word "yes or no",denies any hallucination ,denies any suicidal or homicidal ,no insight to her addiction "I just want to go home" Clinical Problems: Psychosis NOS,rule out substance induced psychosis ,Methamphetamine use disorder ,alcohol use disorder Plan: Continue inpatient. Change Zyprexa to 5 mg HS instead of 2.5 TID ,d/c Effexor ,start Wellbutrin XL 150 mg consult ENT ,PRN dimaond and Daniel for agitation ,waiting for probate court for [facility] court order therapeutic program worker to coordinate discharge and aftercare. Encourage participation in therapeutic groups and activities.
[2020-06-11] MEDS ORDERED: buPROPion XL 150 MG TAB.ER.24H PO SCH (09:15)
[2020-06-11 13:17] LABS: Color,Urine Light Yellow
[2020-06-11 13:18] LABS: Appearance,Urine Clear (Clear); Bilirubin,Urine Negative (Negative); Glucose,Urine (UA) Negative (Negative); Ketones,Urine Negative (Negative); Protein,Urine Negative (Negative)
[2020-06-11 13:19] LABS: Blood,Urine Negative (Negative); Leukocyte Esterase,Urine Negative (Negative); Nitrite,Urine Negative (Negative); Urobilinogen,Urine <2.0 mg/dL (<2.0)
[2020-06-11] MEDS: OLANZapine 5 MG TAB PO SCH (20:55)
[2020-06-12] MEDS: ACETAMINOPHEN TAB 325 MG TAB PO PRN ×4 (04:36→22:07)
--- NOTE | 2020-06-12 09:12 | P.PN ---
Progress Note - Text Progress Note Date: 06/12/20 I did review medical records ,I discussed case in team meeting ,I did interview patient who came to office TODAY VITALS: 98.2,P:82,R:14,BP:124/74 Slept 6 hours No participation in groups,up for meds and meals LABS: repeated UA :negative Patient complaining of pain left ear ,had CT brain : showed increase soft tissue density at left external auditory canal Waiting for Re-consult regarding her ear infection Interim history: Patient stated that she has been feeling less sluggish ,not tired as before,denies any sleeping or appetite problems,denies any psychotic features ,denies suicidal or homicidal ideation denies any suicidal or homicidal ideation Reports having constipation ,was receptive today to pursue rehab and did agree to call [facility] Mental status exam: She presented as casually dressed young female ,more cooperative ,no agitation ,able to sit through interview,speech is non spontaneous but coherent,stated mood "tired",affect is constricted,,denies any hallucination or delusional thinking ,denies any suicidal or homicidal ,her insight to her addiction improving Clinical Problems: Psychosis NOS,rule out substance induced psychosis ,Methamphetamine use disorder ,alcohol use disorder Plan: Continue inpatient. Waiting for deferral meeting,discontinue Effexor ,increase Wellbutrin 300 mg AM and continue Zyprexa 5 mg HS Add Colace for constipation tire worker to coordinate discharge and aftercare. Encourage participation in therapeutic groups and activities
[2020-06-12] MEDS: CEFDINIR 300 MG CAP PO SCH ×2 (09:36→22:06)
[2020-06-12] MEDS: NICOTINE 14MG/24HR PATCH TRANSDERM SCH (09:36)
[2020-06-12] MEDS: buPROPion XL 300 MG TAB.ER.24H PO SCH (09:38)
[2020-06-12] MEDS: DOCUSATE 100 MG CAP PO SCH (09:38)
[2020-06-12] MEDS: OLANZapine 5 MG TAB PO SCH (22:05)
[2020-06-13] MEDS: ACETAMINOPHEN TAB 325 MG TAB PO PRN ×3 (00:41→08:44)
--- NOTE | 2020-06-13 08:06 | P.PN ---
Subjective I was called by the nurse staff to follow up the results of the CT of the head which was done on 06/11 for left ear and head pain. CT of the head showing normal computed tomography scan of the brain, increased soft tissue density on the left external auditory canal and auditory meatus should be correlated with physical exam When I saw the patient, she was fully awake and alert, awake and in the hallway with no difficulty. Patient was complaining of from follows in his left ear with some hearing difficulty, I did order some which showed right membrane or mass in her left ear, while normal looking tympanic membrane on the right ear. Plan: -Consults ENT Dr. Bateman for possible left external auditory canal mass versus others. Discussed with the staff Objective - Vital Signs Vital signs: Vital Signs Temp 98.8 F 06/12/20 14:01 Pulse 82 06/12/20 04:37 Resp 14 06/12/20 04:37 BP 124/74 06/12/20 04:37 Pulse Ox 100 06/12/20 04:37 - Labs CBC & Chem 7: 06/08/20 09:17 06/08/20 09:17
[2020-06-13] MEDS: NICOTINE 14MG/24HR PATCH TRANSDERM SCH (08:44)
[2020-06-13] MEDS: DOCUSATE 100 MG CAP PO SCH (08:44)
[2020-06-13] MEDS: buPROPion XL 300 MG TAB.ER.24H PO SCH (08:44)
--- NOTE | 2020-06-13 09:05 | P.PN ---
Progress Note - Text Progress Note Date: 06/13/20 I did review medical records ,I discussed case in team meeting ,I did interview patient who came to office Reviewed medical consult: (((Plan: -Consults ENT Dr. Bateman for possible left external auditory canal mass versus others.)) TODAY VITALS: 98.2,P:100,R:16,BP:148/85 Slept 5 hours Did sign deferral on 06/12 Patient complaining of pain left ear ,had CT brain : showed increase soft tissue density at left external auditory canal Waiting for ENT consult regarding her ear infection Interim history: Patient stated that she has been feeling "Happy" ,does feel Wellbutrin helping her mood and her motivation ,has been participating in groups,called [facility] and waiting for their response,stated that she had initial insomnia and requesting Melatonin for sleep Mental status exam: She presented as casually dressed young female ,more cooperative ,no agitation ,able to sit through interview,speech is spontaneous but coherent,stated mood "happy"",affect is constricted,,denies any hallucination or delusional thinking ,denies any suicidal or homicidal ,her insight to her addiction improving Clinical Problems: Psychosis NOS,rule out substance induced psychosis ,Methamphetamine use disorder ,alcohol use disorder Plan: Continue inpatient. Continue Wellbutrin and Zyprexa ,add Melatonin for sleep,Motrin for her pain ,waiting for ENT consult shortage worker to coordinate discharge and aftercare. Encourage participation in therapeutic groups and activities )
[2020-06-13] MEDS: LORATADINE 10 MG TAB PO SCH (09:45)
[2020-06-13] MEDS: IBUPROFEN 800 MG TAB PO PRN ×2 (09:45→20:52)
[2020-06-13 11:11] VITALS: BMI 23.1
[2020-06-13] MEDS: OLANZapine 5 MG TAB PO SCH (20:53)
[2020-06-13] MEDS ORDERED: MELATONIN 3 MG TABLET PO SCH (21:00)
[2020-06-13] MEDS: OFLOXACIN 0.3% OPHTH DROPS 5 ML BOTTLE LEFT EAR SCH (21:15)
--- NOTE | 2020-06-13 23:28 | CONS ---
CONSULTATION REASON FOR CONSULTATION: Left ear abnormality on CT. HISTORY: This is a 30-year-old white female who was admitted to the ER for psychiatric evaluation. She states that for about 9 days she has had left ear fullness and pain. She thinks she was on antibiotic as an outpatient, but is not sure. She had CT scan which showed swelling of the left ear canal/external auditory meatus. She has not had difficulties of her ears previously. She has had no fever, chills, or headaches. She did have some Motrin earlier today, which helped her pain. Oral antibiotics has not really helped her symptoms. PAST MEDICAL HISTORY: Positive for recent urinary tract infection. ALLERGIES: No known drug allergies. MEDICATIONS OUTPATIENT: Effexor and Adderall. SOCIAL HISTORY: She does have methamphetamine, alcohol and cocaine use. REVIEW OF SYSTEMS: Noncontributory other than as above. PHYSICAL EXAMINATION: GENERAL: Well-developed adult white female in no acute distress. She is conversant, awake, alert, oriented x3. HEENT. Head: Normocephalic and atraumatic. Ears: On the right, canal is clear. Tympanic membranes unremarkable and mobile. On the left, there is considerable cerumen which is moist in the external auditory canal, which was cleaned under magnification with ear curette, but this was moist and there is also some mild purulence. The canal has moderate swelling. No mastoid, but there is mild tragal tenderness. Tympanic membrane is visualized and is unremarkable and mobile. Nose shows no drainage or obstruction. The mouth and throat shows no abnormal masses or lesions. NECK: Supple without adenopathy or tenderness. ASSESSMENT: Left acute otitis externa. PLAN: The patient has had her oral antibiotics discontinued already. She was started on ofloxacin otic suspension and should be on this for 1 week. Her disposition at this point is awaiting outpatient placement and therefore if she is discharged in less than a week to 10 days, then she should have a full 7-10 days of the ofloxacin drops as a prescription as an outpatient also. Keep left ear dry. She will follow up in our office on an as-needed basis for any persistent or recurrent symptoms. I reviewed all this with the patient already in detail. If there are questions or concerns regarding this consultation, please feel free to contact me. CHERYL / IJN: [id number] /
[2020-06-14] MEDS: DOCUSATE 100 MG CAP PO SCH (08:44)
[2020-06-14] MEDS: OFLOXACIN 0.3% OPHTH DROPS 5 ML BOTTLE LEFT EAR SCH ×2 (08:44→20:37)
[2020-06-14] MEDS: NICOTINE 14MG/24HR PATCH TRANSDERM SCH (08:44)
[2020-06-14] MEDS: buPROPion XL 300 MG TAB.ER.24H PO SCH (08:44)
[2020-06-14] MEDS: LORATADINE 10 MG TAB PO SCH (08:44)
[2020-06-14] MEDS: IBUPROFEN 800 MG TAB PO PRN ×2 (08:46→17:14)
--- NOTE | 2020-06-14 09:39 | P.PN ---
Progress Note - Text Progress Note Date: 06/14/20 I did review medical records ,I discussed case in team meeting ,I did interview patient who came to office I reviewed ENT consult ,patient was started on ear drop and to continue for 7-10 days TODAY VITALS:temp:98.2,P:91,R:16,BP:113/62 Patient is participating in groups ,no behavior issue Interim history: Patient stated that she has been feeling "GOOD" ,does feel Wellbutrin helping her mood and her motivation ,has been participating in groups,called [facility] and waiting for their response,stated that Melatonin helped but she was up by 6AM Denies any depressive or anxiety symptom,denies any manic features Mental status exam: She presented young female dressed in hospital gown , cooperative ,no agitation ,able to sit through interview, ,was restless and shaking her legs at times speech is spontaneous, coherent,stated mood "GOOD""",affect is constricted,,denies any hallucination or delusional thinking ,denies any suicidal or homicidal ,her insight to her addiction improving Clinical Problems: Psychosis NOS,rule out substance induced psychosis ,Methamphetamine use disorder ,alcohol use disorder Plan: Continue inpatient. Continue Wellbutrin and Zyprexa ,increase Melatonin for sleep, mosaic worker to coordinate discharge and aftercare. Encourage participation in therapeutic groups and activities
[2020-06-14] MEDS: MELATONIN 5 MG TABLET PO SCH (20:37)
[2020-06-14] MEDS: OLANZapine 5 MG TAB PO SCH (20:37)
[2020-06-15] MEDS: IBUPROFEN 800 MG TAB PO PRN ×2 (05:00→20:47)
--- NOTE | 2020-06-15 08:37 | P.PN ---
Progress Note - Text Progress Note Date: 06/15/20 I did review medical records ,I discussed case in team meeting ,I did interview patient who came to office Slept 5 hours ,interrupted Patient is participating in groups ,no behavior issue Patient called [facility] and waiting for their decision Interim history: Patient stated that she has been feeling anxious ,her mind is racing at night and not able to stay asleep even with Melatonin ,denies any psychotic features ,denies any depressive or manic features.She stated that her pain in left ear is under control with Motrin but she does believe that she lost "At least 50% of my hearing on left ear but it does not matter I am trying to focus on myself" Mental status exam: She presented young female dressed in hospital gown , cooperative ,no agitation ,able to sit through interview, ,was restless and shaking her legs at times speech is spontaneous, coherent,stated mood "a nxious"",affect is constricted,,denies any hallucination or delusional thinking ,denies any suicidal or homicidal ,her insight to her addiction improving Clinical Problems: Psychosis NOS,rule out substance induced psychosis ,Methamphetamine use disorder ,alcohol use disorder Plan: Continue inpatient. Continue Wellbutrin ,increase Zyprexa 7.5 mg HS to stabilize her mood and restore sleep food preparation worker to coordinate discharge and aftercare. Encourage participation in therapeutic groups and activities
[2020-06-15] MEDS: DOCUSATE 100 MG CAP PO SCH (08:48)
[2020-06-15] MEDS: OFLOXACIN 0.3% OPHTH DROPS 5 ML BOTTLE LEFT EAR SCH ×2 (08:48→20:45)
[2020-06-15] MEDS: LORATADINE 10 MG TAB PO SCH (08:48)
[2020-06-15] MEDS: buPROPion XL 300 MG TAB.ER.24H PO SCH (08:48)
[2020-06-15] MEDS: NICOTINE 14MG/24HR PATCH TRANSDERM SCH (12:54)
[2020-06-15] MEDS: MELATONIN 5 MG TABLET PO SCH (20:45)
[2020-06-15] MEDS: OLANZapine 2.5 MG TAB PO SCH (20:45)
[2020-06-15] MEDS: MAGNESIUM HYDROXIDE 2,400 MG/10 ML CUP PO PRN (20:48)
[2020-06-16] MEDS: DOCUSATE 100 MG CAP PO SCH (08:00)
[2020-06-16] MEDS: buPROPion XL 300 MG TAB.ER.24H PO SCH (08:00)
[2020-06-16] MEDS: LORATADINE 10 MG TAB PO SCH (08:00)
[2020-06-16] MEDS: OFLOXACIN 0.3% OPHTH DROPS 5 ML BOTTLE LEFT EAR SCH ×2 (08:45→21:45)
[2020-06-16] MEDS: NICOTINE 14MG/24HR PATCH TRANSDERM SCH (10:57)
--- NOTE | 2020-06-16 11:13 | P.PN ---
Subjective Progress Note Date: 06/16/20 Principal diagnosis: Psychosis NOS Methamphetamine use disorder Alcohol use disorder Subjective: Patient says she slept better and the staff agree that she had at least 6 hours uninterrupted. She says she likes to learn about what causes her problems and what she can do about it. She denies any suicidal or homicidal ideas no psychotic symptoms Objective: Vital signs temperature 97.8 heart rate 100 respiration 18 blood pressure 110/63 Labs: Nothing new Groups: Patient arrived late but seemed to participate well talks well with peers and staff spontaneous bright affect Staff report: Patient stays out of her room is social with peers and tends her ADLs compliant spontaneous oriented to person place time and circumstance Medications the patient is on Wellbutrin 300 and is very positive about its effects, she is also increase the Zyprexa last night to 7.5 and did sleep better she does not seem lethargic this morning Mental status exam reasonable self-care gait and station are normal psychomotor activity is normal good eye contact oriented to person place time and c ircumstance denies any suicidality or homicidality Assessment benefiting from medication and treatment no change at this time Objective - Vital Signs Vital signs: Vital Signs Temp 97.8 F 06/16/20 04:51 Pulse 100 06/16/20 04:51 Resp 18 06/16/20 04:51 BP 100/63 06/16/20 04:51 Pulse Ox 98 06/15/20 07:00 - Labs CBC & Chem 7: 06/08/20 09:17 06/08/20 09:17
[2020-06-16] MEDS: MELATONIN 5 MG TABLET PO SCH (21:45)
[2020-06-16] MEDS: OLANZapine 2.5 MG TAB PO SCH (21:45)
[2020-06-17] MEDS: OFLOXACIN 0.3% OPHTH DROPS 5 ML BOTTLE LEFT EAR SCH ×2 (09:06→20:49)
[2020-06-17] MEDS: NICOTINE 14MG/24HR PATCH TRANSDERM SCH (09:06)
[2020-06-17] MEDS: LORATADINE 10 MG TAB PO SCH (09:06)
[2020-06-17] MEDS: buPROPion XL 300 MG TAB.ER.24H PO SCH (09:06)
[2020-06-17] MEDS: DOCUSATE 100 MG CAP PO SCH (09:06)
--- NOTE | 2020-06-17 11:29 | P.PN ---
Subjective Progress Note Date: 06/17/20 Principal diagnosis: Psychosis NOS Methamphetamine use disorder Alcohol use disorder Subjective: The patient was complaining of some difficulty with energy and focus and thought maybe we could bump up the Wellbutrin. Otherwise she feels that she is on the right track Objective: Patient's medicines are Zyprexa 7. 5 at night I think that is why she is still sleepy in the morning and then she takes Wellbutrin at 300 The patient seemed alert enough and logical oriented keyed and station normal she is very helpful taking care of an older patient in the wheelchair getting her to groups eye contact is good she is cooperative Groups patient attends participates without much assistance and interacts well with peers and staff Vital signs temperature 90.8 heart rate 62 respirations 16 blood pressure 124/82 O2 sat is 97 Labs nothing new Assessment I don't think it would be [facility] to increase the Wellbutrin is a can agitate psychosis and I explained to her that it takes 2-6 weeks before it works so too early to change it based on wanting this or that symptom improved and gudelia t is quite likely that the Wellbutrin 300 will work and that is her body adjusts to the Zyprexa she will be so tired Plan no change at this time Objective - Vital Signs Vital signs: Vital Signs Temp 98.0 F 06/17/20 06:26 Pulse 62 06/17/20 06:26 Resp 16 06/17/20 06:26 BP 124/82 06/17/20 06:26 Pulse Ox 97 06/17/20 06:26 - Labs CBC & Chem 7: 06/08/20 09:17 06/08/20 09:17
[2020-06-17] MEDS: MELATONIN 5 MG TABLET PO SCH (20:49)
[2020-06-17] MEDS: OLANZapine 2.5 MG TAB PO SCH (20:49)
[2020-06-18] MEDS: LORATADINE 10 MG TAB PO SCH (08:26)
[2020-06-18] MEDS: DOCUSATE 100 MG CAP PO SCH (08:26)
[2020-06-18] MEDS: OFLOXACIN 0.3% OPHTH DROPS 5 ML BOTTLE LEFT EAR SCH ×2 (08:26→20:35)
[2020-06-18] MEDS: buPROPion XL 300 MG TAB.ER.24H PO SCH (08:26)
[2020-06-18] MEDS: NICOTINE 14MG/24HR PATCH TRANSDERM SCH (08:26)
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
[2020-06-18] MEDS: IBUPROFEN 800 MG TAB PO PRN (16:59)
[2020-06-18] MEDS: MELATONIN 5 MG TABLET PO SCH (20:26)
[2020-06-18] MEDS: OLANZapine 2.5 MG TAB PO SCH (20:26)
[2020-06-19 01:18] VITALS: RESP 16
[2020-06-19] MEDS: OFLOXACIN 0.3% OPHTH DROPS 5 ML BOTTLE LEFT EAR SCH ×2 (08:45→20:20)
[2020-06-19] MEDS: DOCUSATE 100 MG CAP PO SCH (08:46)
[2020-06-19] MEDS: LORATADINE 10 MG TAB PO SCH (08:46)
[2020-06-19] MEDS: buPROPion XL 300 MG TAB.ER.24H PO SCH (08:46)
[2020-06-19] MEDS: MAGNESIUM HYDROXIDE 2,400 MG/10 ML CUP PO PRN (08:47)
[2020-06-19] MEDS: NICOTINE 14MG/24HR PATCH TRANSDERM SCH ×2 (09:46→10:34)
--- NOTE | 2020-06-19 10:14 | P.PN ---
Progress Note - Text Progress Note Date: 06/19/20 I did review medical records ,I discussed case in team meeting ,I did interview patient who came to office Slept 7 hours Patient is participating in groups ,no behavior issue TODAY VITALS: Temp:98.1,P:76,R:16,BP:95/58 Interim history: Patient stated that she has been sleeping better ,denies any psychotic features ,asked if she can out of unit visitation with her 13 years old son ,reports lot of guilt feeling as she missed his birthday,patient denies any appetite problem ,stated that her parents have been supportive and her son has been staying with them,she rates her anxiety 5/10,depression 3/10,10 being the worst She denies any side-effect from medications Mental status exam: She presented young female dressed in street cloth, cooperative ,no agitation ,able to sit through interview, ,was restless and shaking her legs at times speech is spontaneous, coherent,stated mood "anxious"",affect is constricted,,denies any hallucination or delusional thinking ,denies any suicidal or homicidal ,her insight to her addiction improving Clinical Problems: Psychosis NOS,rule out substance induced psychosis ,Methamphetamine use disorder ,alcohol use disorder Plan: Continue inpatient. Continue Wellbutrin and Zyprexa 7.5 mg HS to stabilize her mood and restore sleep line assembly utility worker to coordinate discharge and aftercare. Encourage participation in therapeutic groups and activities
[2020-06-19] MEDS: IBUPROFEN 800 MG TAB PO PRN ×2 (10:31→22:14)
[2020-06-19] MEDS: MELATONIN 5 MG TABLET PO SCH (20:20)
[2020-06-19] MEDS: OLANZapine 2.5 MG TAB PO SCH (20:20)
[2020-06-20] MEDS: IBUPROFEN 800 MG TAB PO PRN ×2 (06:38→16:33)
[2020-06-20] MEDS: OFLOXACIN 0.3% OPHTH DROPS 5 ML BOTTLE LEFT EAR SCH ×2 (08:45→21:19)
[2020-06-20] MEDS: buPROPion XL 300 MG TAB.ER.24H PO SCH (08:45)
[2020-06-20] MEDS: LORATADINE 10 MG TAB PO SCH (08:45)
[2020-06-20] MEDS: NICOTINE 14MG/24HR PATCH TRANSDERM SCH (08:45)
[2020-06-20] MEDS: DOCUSATE 100 MG CAP PO SCH (08:45)
--- NOTE | 2020-06-20 08:59 | P.PN ---
Progress Note - Text Progress Note Date: 06/20/20 I did review medical records ,I discussed case in team meeting ,I did interview patient who came to office Slept 7 hours Patient is participating in groups ,no behavior issue Interim history: Patient was tearful as her mother refused to bring patient son here for visitation she stated "My mom has custody of my son for last 8 years ,she is very controlling ,even at times she refused to give me supervised visitation ",patient talked about being close to her father ,talked about going to [facility] after [facility] and try to find job "So I can have my son back in my life",patient denies any psychotic features ,denies any suicidal or homicidal ideation Mental status exam: She presented young female dressed in street cloth, cooperative ,no agitation ,able to sit through interview, ,was tearful at time as she is missing her son ,feeling guilty about her addiction "I lost his custody because of drugs"speech is spontaneous, coherent,stated mood "anxious"",affect is constricted,,denies any hallucination or delusional thinking ,denies any suicidal or homicidal ,her insight to her addiction improving Clinical Problems: Psychosis NOS,rule out substance induced psychosis ,Methamphetamine use disorder ,alcohol use disorder Plan: Continue inpatient. Continue Wellbutrin and Zyprexa 7.5 mg HS to stabilize her mood and restore sleep culture room worker to coordinate discharge and aftercare. Encourage participation in therapeutic groups and activities Probably transfer to [facility] on 06/22
[2020-06-20] MEDS: MAGNESIUM HYDROXIDE 2,400 MG/10 ML CUP PO PRN (16:32)
[2020-06-20] MEDS: MELATONIN 5 MG TABLET PO SCH (21:20)
[2020-06-20] MEDS: OLANZapine 2.5 MG TAB PO SCH (21:20)
[2020-06-21 07:29] VITALS: BP 110/58; PULSE 83
[2020-06-21] MEDS: LORATADINE 10 MG TAB PO SCH (07:57)
[2020-06-21] MEDS: DOCUSATE 100 MG CAP PO SCH (07:57)
[2020-06-21] MEDS: buPROPion XL 300 MG TAB.ER.24H PO SCH (07:57)
[2020-06-21] MEDS: MAGNESIUM HYDROXIDE 2,400 MG/10 ML CUP PO PRN (07:59)
[2020-06-21] MEDS: OFLOXACIN 0.3% OPHTH DROPS 5 ML BOTTLE LEFT EAR SCH ×2 (09:24→20:58)
[2020-06-21] MEDS: IBUPROFEN 800 MG TAB PO PRN ×2 (09:25→18:36)
--- NOTE | 2020-06-21 09:38 | P.PN ---
Progress Note - Text Progress Note Date: 06/21/20 I did review medical records ,I discussed case in team meeting ,I did interview patient who came to office Slept 7 hours Patient is participating in groups ,no behavior issue Interim history: Patient was walking in hart and agreed to follow me to office,stated that her father could not visit her yesterday "Because of [place]",endorses some anxiety related to her discharge and starting rehab ,stated that after rehab she will go to one year residential "This time I want to be sure that I will stay clean" Mental status exam: She presented young female dressed in street cloth, cooperative ,no agitation ,able to sit through interview, ,pleasant ,speech is coherent ,normal in rate and rythm , stated mood "anxious"",affect is constricted,,denies any hallucination or delusional thinking ,denies any suicidal or homicidal ,her insight to her addiction improving Clinical Problems: Psychosis NOS,rule out substance induced psychosis ,Methamphetamine use disorder ,alcohol use disorder Plan: Continue inpatient. Continue Wellbutrin and Zyprexa 7.5 mg HS to stabilize her mood and restore ,transfer to [facility] tomorrow
[2020-06-21] MEDS: NICOTINE 14MG/24HR PATCH TRANSDERM SCH (11:05)
[2020-06-21] MEDS: MAG HYDROX/AL HYDROX/SIMETH 30 ML CUP PO PRN ×2 (13:44→18:38)
[2020-06-21] MEDS: MELATONIN 5 MG TABLET PO SCH (20:58)
[2020-06-21] MEDS: OLANZapine 2.5 MG TAB PO SCH (20:58)
[2020-06-21 21:03] VITALS: TEMP 98.5
--- NOTE | 2020-06-22 11:24 | DS ---
DISCHARGE SUMMARY DATE OF ADMISSION: 06/05/2020. DATE OF DISCHARGE: 06/22/2020. [facility] TRANSFER OPERATOR: Dr. Sam Ambrosio for medical consultation. DISCHARGE DIAGNOSES: 1. Psychosis, NOS, resolved. 2. Substance induced psychosis. 3. Polysubstance use disorder, amphetamine, methamphetamine, cocaine and alcohol. HISTORY OF PRESENT ILLNESS: The patient presented on involuntary basis with a petition filed by her father, stated that the patient has been doing drugs, very disorganized and agitated. He stated that patient was not sleeping or eating for 10 days in a row and she was verbalizing suicidal ideation. Initially patient could not hold any conversation. She was very poor historian, even she was very agitated in the ER and she was in restraints and she was given Ativan and Geodon. For complete evaluation, please refer to my H and P. HOSPITAL COURSE: At the time of the admission, patient was having prescription from her primary care physician that including Effexor 150 and Adderall 30 mg. Her urine drug screen was positive for amphetamine and methamphetamine. Patient was refusing any medication, so she was on p.r.n. Geodon and Ativan until she met her senior trial attorney. She did agree for deferral and after 72 hours, patient was less disorganized, less bizarre and she was easy to direct. The patient was complaining of urinary tract infection and she was started on Bactrim. In addition, she was having ear infection as the brain scan on June [address] scan of the brain; however, there is increased soft tissue density at the left external auditory canal, so ENT was consulted and he did order ear drops for 5 days. She has to do it twice a day. In addition that she was taking Motrin 800 three times a day as needed for pain. In 5 days her ear infection was clear and patient did agree to sign med consent and she did agree to start Wellbutrin for her depression and according to her, her ADD and Zyprexa at bedtime. Initially, she was very suspicious and paranoid, but we did titrate the Zyprexa up to 7.5, it did help her paranoia and suspicious feeling. In addition, she was able to sleep at night. However, she was complaining of not able to stay asleep and she was waking around 5 or 6 am so melatonin was added to the Zyprexa. Patient was very active in the group and even she was helping the other peers, especially the last 5 day of her admission here. She was very active participant. In one-to-one patient talked in detail about her struggling with addiction for the last 8-9 years and that is why she lost custody of her son who is 12 years of age, who has been living with the patient's mother. Patient was tearful at times, struggling with guilt feeling and remorse about her addiction. However, she stated that she has new goal to stay clean and to be able to get her son custody. She did contact [facility], who did accept her and we did contact her father who confirmed that he will be on June 22 at 7 a.m. to take the patient to [facility] to start inpatient substance abuse program. MENTAL STATUS EXAMINATION: At the time of the discharge, the patient is casually dressed. Hygiene and grooming are good. Very cooperative, very polite. Speech is coherent and goal directed. Normal in rhythm and volume stated mood "I am excited." Affect is appropriate to thought content. Patient denied any psychotic feature. Patient denied any suicidal or homicidal ideation. Her insight and judgment are much improved. DISCHARGE MEDICATION: Motrin 800 three times a day as needed, Claritin 10 mg a day. Melatonin 5 mg at bedtime. Naproxen 7.5 at bedtime, Wellbutrin XL 300 mg in the morning. FOLLOWUP PLAN: Patient will start [facility] today June 22, 2020 PRIMARY CARE PHYSICIAN: Dr. Nathan Cam. MMLAILAL / HANNAN: [id number] /
== END 2020-06-22 06:47 | DRG 897 ==
LOC: EC 13:30 → 3MHU 06-06 05:50
PROVIDERS: ADMIT Psychiatry & Neurology Psychiatry; ATTEND Psychiatry & Neurology Psychiatry
DX: F15.159 Other stimulant abuse with stimulant-induced psychotic disorder, unspecified (principal); N39.0 Urinary tract infection, site not specified; R45.851 Suicidal ideations; F15.10 Other stimulant abuse, uncomplicated; F41.9 Anxiety disorder, unspecified; F32.9 Major depressive disorder, single episode, unspecified; Z79.899 Other long term (current) drug therapy; F10.10 Alcohol abuse, uncomplicated; F14.10 Cocaine abuse, uncomplicated; H60.502 Unspecified acute noninfective otitis externa, left ear; H66.90 Otitis media, unspecified, unspecified ear; F42.9 Obsessive-compulsive disorder, unspecified; T14.8XXA Other injury of unspecified body region, initial encounter; Z78.1 Physical restraint status; R45.1 Restlessness and agitation; Z87.440 Personal history of urinary (tract) infections; X58.XXXA Exposure to other specified factors, initial encounter
CPT/HCPCS: 70450; 80053; 80306; 81001; 81003; 82075; 84443; 85025; 87077; 87086; 87186; 87901; 96372; 99285

== ENCOUNTER 2020-12-12 19:45 | Inpatient (IN) | payer MEDICAID, OTHER ==
[2020-12-12] MEDS ORDERED: LORazepam 2 MG/ML INJ IM STA (19:57)
[2020-12-12] MEDS ORDERED: SODIUM CHLORIDE 0.9% 1,000 ML IV ONE (20:00)
--- NOTE | 2020-12-12 20:03 | ED ---
General Adult HPI - General Source: EMS Mode of arrival: EMS Limitations: altered mental status <Ellen Naranjo - Last Filed: 12/13/20 00:47> <Adrian Chandler - Last Filed: 12/13/20 06:43> - General Chief complaint: Psychiatric Symptoms Stated complaint: ETOH Time Seen by Provider: 12/12/20 19:53 - History of Present Illness Initial comments: 30 year-old female patient is brought in by EMS and police for evaluation. Friend reports that patient has been drinking a lot lately. States that she went away and when she returned the patient was acting very bizarre and was running through the house naked. Patient has known drug use history. She is completely altered at this time and not answering questions. She is very jerky with her movements and will not stop moving. (Ellen Naranjo) - Related Data Home Medications Medication Instructions Recorded Confirmed Falmina 0.1-0.02mg Tablet 1 tab PO DAILY 12/12/20 12/12/20 OLANZapine [ZyPREXA] 5 mg PO HS 12/12/20 12/12/20 PARoxetine [Paxil] 10 mg PO DAILY 12/12/20 12/12/20 cloNIDine HCL [Catapres] 0.1 mg PO BID 12/12/20 12/12/20 Allergies Allergy/AdvReac Type Severity Reaction Status Date / Time No Known Allergies Allergy Verified 12/12/20 22:40 Review of Systems ROS Other: All systems not noted in ROS Statement are negative. <Ellen Naranjo - Last Filed: 12/13/20 00:47> ROS Other: All systems not noted in ROS Statement are negative. <Adrian Chandler - Last Filed: 12/13/20 06:43> ROS Statement: Those systems with pertinent positive or pertinent negative responses have been documented in the HPI. Past Medical History Past Medical History: No Reported History History of Any Multi-Drug Resistant Organisms: None Reported Past Surgical History: No Surgical Hx Reported Past Psychological History: Anxiety, Depression Past Alcohol Use History: Occasional Past Drug Use History: Methamphetamine <Ellen Naranjo - Last Filed: 12/13/20 00:47> General Exam Limitations: altered mental status General appearance: alert, other (physical well-developed, well-nourished adult female patient who is quite altered.) Eye exam: Present: normal appearance, PERRL, EOMI. Absent: scleral icterus, conjunctival injection, periorbital swelling ENT exam: Present: normal exam, normal oropharynx, mucous membranes moist Respiratory exam: Present: normal lung sounds bilaterally. Absent: respiratory distress, wheezes, rales, rhonchi, stridor Cardiovascular Exam: Present: regular rate, normal rhythm, normal heart sounds. Absent: systolic murmur, diastolic murmur, rubs, gallop, clicks GI/Abdominal exam: Present: soft, normal bowel sounds. Absent: distended, tenderness, guarding, rebound, rigid Psychiatric exam: Present: other (bizarre, confused) Skin exam: Present: warm, dry, intact, normal color. Absent: rash <Ellen Naranjo - Last Filed: 12/13/20 00:47> Course Vital Signs 12/12/20 12/13/20 12/13/20 19:52 00:51 04:00 Temperature 97.9 F 98.1 F 97.8 F Pulse Rate 66 98 105 H Respiratory 16 16 16 Rate Blood Pressure 147/79 102/56 103/46 O2 Sat by Pulse 98 98 98 Oximetry EKG Findings - EKG Comments: EKG Findings:: EKG obtained at 2147 shows normal sinus rhythm with a ventricular rate of 97, [place] interval 150, QRS duration 92, QT 368, QTC 467. No evidence of ST elevation or depression. <Ellen Naranjo - Last Filed: 12/13/20 00:47> Medical Decision Making - Lab Data Result diagrams: 12/12/20 21:02 12/12/20 21:02 <Ellen Naranjo - Last Filed: 12/13/20 00:47> - Lab Data Result diagrams: 12/12/20 21:02 12/12/20 21:02 <Adrian Chandler - Last Filed: 12/13/20 06:43> - Medical Decision Making 30-year-old female patient brought in for psychiatric evaluation. She was cleared medically and evaluated by emergency psychiatric services. She'll be admitted to the mental health unit. Case discussed with my attending Dr. Chandler. (Ellen Naranjo) I saw this patient in conjunction with the nurse practitioner. I performed independent history and physical exam. Agree with case management. Clinical certificate filed (Adrian Chandler) - Lab Data Lab Results 12/12/20 12/12/20 12/12/20 Range/Units 21:02 21:02 21:02 WBC 9.7 (3.8-10.6) k/uL RBC 4.95 (3.80-5.40) m/uL Hgb 14.0 (11.4-16.0) gm/dL Hct 40.1 (34.0-46.0) % MCV 81.1 (80.0-100.0) fL MCH 28.2 (25.0-35.0) pg MCHC 34.9 (31.0-37.0) g/dL RDW 13.3 (11.5-15.5) % Plt Count 226 (150-450) k/uL MPV 8.3 Neutrophils % 68 % Lymphocytes % 19 % Monocytes % 10 % Eosinophils % 1 % Basophils % 0 % Neutrophils # 6.6 (1.3-7.7) k/uL Lymphocytes # 1.9 (1.0-4.8) k/uL Monocytes # 1.0 (0-1.0) k/uL Eosinophils # 0.1 (0-0.7) k/uL Basophils # 0.0 (0-0.2) k/uL PT 11.2 (9.0-12.0) sec INR 1.1 (<1.2) APTT 23.2 (22.0-30.0) sec Sodium 136 L (137-145) mmol/L Potassium 3.4 L (3.5-5.1) mmol/L Chloride 103 (98-107) mmol/L Carbon Dioxide 23 (22-30) mmol/L Anion Gap 10 mmol/L BUN 16 (7-17) mg/dL Creatinine 0.96 (0.52-1.04) mg/dL Est GFR (CKD-EPI)AfAm >90 (>60 ml/min/1.73 sqM) Est GFR (CKD-EPI)NonAf 79 (>60 ml/min/1.73 sqM) Glucose 82 (74-99) mg/dL Calcium 9.6 (8.4-10.2) mg/dL Total Bilirubin 1.2 (0.2-1.3) mg/dL AST 37 H (14-36) U/L ALT 21 (4-34) U/L Alkaline Phosphatase 65 (38-126) U/L Troponin I (0.000-0.034) ng/mL Total Protein 7.6 (6.3-8.2) g/dL Albumin 4.5 (3.5-5.0) g/dL Triglycerides (<150) mg/dL Cholesterol (<200) mg/dL LDL Cholesterol, Calc (0-99) mg/dL HDL Cholesterol (40-60) mg/dL TSH (0.465-4.680) mIU/L Urine Color Urine Appearance (Clear) Urine pH (5.0-8.0) Ur Specific [place] (1.001-1.035) Urine Protein (Negative) Urine Glucose (UA) (Negative) Urine Ketones (Negative) Urine Blood (Negative) Urine Nitrite (Negative) Urine Bilirubin (Negative) Urine Urobilinogen (<2.0) mg/dL Ur Leukocyte Esterase (Negative) Urine WBC (0-5) /hpf Ur Squamous Epith Cells (0-4) /hpf Urine Mucus (None) /hpf Urine HCG, Qual (Not Detectd) Urine Opiates Screen (NotDetected) Ur Oxycodone Screen (NotDetected) Urine Methadone Screen (NotDetected) Ur Propoxyphene Screen (NotDetected) Ur Barbiturates Screen (NotDetected) U Tricyclic Antidepress (NotDetected) Ur Phencyclidine Scrn (NotDetected) Ur Amphetamines Screen (NotDetected) U Methamphetamines Scrn (NotDetected) U Benzodiazepines Scrn (NotDetected) Urine Cocaine Screen (NotDetected) U Marijuana (THC) Screen (NotDetected) Serum Alcohol <10 mg/dL Coronavirus (PCR) (Not Detectd) 12/12/20 12/12/20 12/12/20 Range/Units 21:02 21:02 21:47 WBC (3.8-10.6) k/uL RBC (3.80-5.40) m/uL Hgb (11.4-16.0) gm/dL Hct (34.0-46.0) % MCV (80.0-100.0) fL MCH (25.0-35.0) pg MCHC (31.0-37.0) g/dL RDW (11.5-15.5) % Plt Count (150-450) k/uL MPV Neutrophils % % Lymphocytes % % Monocytes % % Eosinophils % % Basophils % % Neutrophils # (1.3-7.7) k/uL Lymphocytes # (1.0-4.8) k/uL Monocytes # (0-1.0) k/uL Eosinophils # (0-0.7) k/uL Basophils # (0-0.2) k/uL PT (9.0-12.0) sec INR (<1.2) APTT (22.0-30.0) sec Sodium (137-145) mmol/L Potassium (3.5-5.1) mmol/L Chloride (98-107) mmol/L Carbon Dioxide (22-30) mmol/L Anion Gap mmol/L BUN (7-17) mg/dL Creatinine (0.52-1.04) mg/dL Est GFR (CKD-EPI)AfAm (>60 ml/min/1.73 sqM) Est GFR (CKD-EPI)NonAf (>60 ml/min/1.73 sqM) Glucose (74-99) mg/dL Calcium (8.4-10.2) mg/dL Total Bilirubin (0.2-1.3) mg/dL AST (14-36) U/L ALT (4-34) U/L Alkaline Phosphatase (38-126) U/L Troponin I <0.012 (0.000-0.034) ng/mL Total Protein (6.3-8.2) g/dL Albumin (3.5-5.0) g/dL Triglycerides 46 (<150) mg/dL Cholesterol 159 (<200) mg/dL LDL Cholesterol, Calc 95 (0-99) mg/dL HDL Cholesterol 55 (40-60) mg/dL TSH 0.611 (0.465-4.680) mIU/L Urine Color Yellow Urine Appearance Clear (Clear) Urine pH 5.5 (5.0-8.0) Ur Specific [place] 1.024 (1.001-1.035) Urine Protein 1+ H (Negative) Urine Glucose (UA) Negative (Negative) Urine Ketones 1+ H (Negative) Urine Blood Negative (Negative) Urine Nitrite Negative (Negative) Urine Bilirubin Negative (Negative) Urine Urobilinogen <2.0 (<2.0) mg/dL Ur Leukocyte Esterase Negative (Negative) Urine WBC 1 (0-5) /hpf Ur Squamous Epith Cells 2 (0-4) /hpf Urine Mucus Moderate H (None) /hpf Urine HCG, Qual (Not Detectd) Urine Opiates Screen Not Detected (NotDetected) Ur Oxycodone Screen Not Detected (NotDetected) Urine Methadone Screen Not Detected (NotDetected) Ur Propoxyphene Screen Not Detected (NotDetected) Ur Barbiturates Screen Not Detected (NotDetected) U Tricyclic Antidepress Not Detected (NotDetected) Ur Phencyclidine Scrn Not Detected (NotDetected) Ur Amphetamines Screen Detected H (NotDetected) U Methamphetamines Scrn Detected H (NotDetected) U Benzodiazepines Scrn Not Detected (NotDetected) Urine Cocaine Screen Not Detected (NotDetected) U Marijuana (THC) Screen Not Detected (NotDetected) Serum Alcohol mg/dL Coronavirus (PCR) (Not Detectd) 12/12/20 12/13/20 Range/Units 21:47 00:39 WBC (3.8-10.6) k/uL RBC (3.80-5.40) m/uL Hgb (11.4-16.0) gm/dL Hct (34.0-46.0) % MCV (80.0-100.0) fL MCH (25.0-35.0) pg MCHC (31.0-37.0) g/dL RDW (11.5-15.5) % Plt Count (150-450) k/uL MPV Neutrophils % % Lymphocytes % % Monocytes % % Eosinophils % % Basophils % % Neutrophils # (1.3-7.7) k/uL Lymphocytes # (1.0-4.8) k/uL Monocytes # (0-1.0) k/uL Eosinophils # (0-0.7) k/uL Basophils # (0-0.2) k/uL PT (9.0-12.0) sec INR (<1.2) APTT (22.0-30.0) sec Sodium (137-145) mmol/L Potassium (3.5-5.1) mmol/L Chloride (98-107) mmol/L Carbon Dioxide (22-30) mmol/L Anion Gap mmol/L BUN (7-17) mg/dL Creatinine (0.52-1.04) mg/dL Est GFR (CKD-EPI)AfAm (>60 ml/min/1.73 sqM) Est GFR (CKD-EPI)NonAf (>60 ml/min/1.73 sqM) Glucose (74-99) mg/dL Calcium (8.4-10.2) mg/dL Total Bilirubin (0.2-1.3) mg/dL AST (14-36) U/L ALT (4-34) U/L Alkaline Phosphatase (38-126) U/L Troponin I (0.000-0.034) ng/mL Total Protein (6.3-8.2) g/dL Albumin (3.5-5.0) g/dL Triglycerides (<150) mg/dL Cholesterol (<200) mg/dL LDL Cholesterol, Calc (0-99) mg/dL HDL Cholesterol (40-60) mg/dL TSH (0.465-4.680) mIU/L Urine Color Urine Appearance (Clear) Urine pH (5.0-8.0) Ur Specific [place] (1.001-1.035) Urine Protein (Negative) Urine Glucose (UA) (Negative) Urine Ketones (Negative) Urine Blood (Negative) Urine Nitrite (Negative) Urine Bilirubin (Negative) Urine Urobilinogen (<2.0) mg/dL Ur Leukocyte Esterase (Negative) Urine WBC (0-5) /hpf Ur Squamous Epith Cells (0-4) /hpf Urine Mucus (None) /hpf Urine HCG, Qual Not Detected (Not Detectd) Urine Opiates Screen (NotDetected) Ur Oxycodone Screen (NotDetected) Urine Methadone Screen (NotDetected) Ur Propoxyphene Screen (NotDetected) Ur Barbiturates Screen (NotDetected) U Tricyclic Antidepress (NotDetected) Ur Phencyclidine Scrn (NotDetected) Ur Amphetamines Screen (NotDetected) U Methamphetamines Scrn (NotDetected) U Benzodiazepines Scrn (NotDetected) Urine Cocaine Screen (NotDetected) U Marijuana (THC) Screen (NotDetected) Serum Alcohol mg/dL Coronavirus (PCR) Not Detected (Not Detectd) Disposition - Out of Hospital Transfer - Req. Specs Out of Hospital Transfer - Requested Specifics: Psychiatric Non-ICU ([facility]) <Ellen Naranjo - Last Filed: 12/13/20 00:47> <Adrian Chandler - Last Filed: 12/13/20 06:43> Clinical Impression: Psychosis Disposition: TRANSFER TO PSYCH HOSP/UNIT Condition: Serious
[2020-12-12 21:20] LABS: ALT 21 U/L (4-34); AST 37 U/L (14-36); African American GFR (CKD) >90 (>60 ml/min/1.73 sqM); Albumin 4.5 g/dL (3.5-5.0); Alcohol <10 mg/dL; Alkaline Phosphatase 65 U/L (38-126); Anion Gap 10 mmol/L; Blood Urea Nitrogen 16 mg/dL (7-17); Calcium 9.6 mg/dL (8.4-10.2); Carbon Dioxide 23 mmol/L (22-30); Chloride 103 mmol/L (98-107); Glucose 82 mg/dL (74-99); Non-African American GFR(CKD) 79 (>60 ml/min/1.73 sqM); Potassium 3.4 mmol/L (3.5-5.1); Sodium 136 mmol/L (137-145); Total Bilirubin 1.2 mg/dL (0.2-1.3); Total Protein 7.6 g/dL (6.3-8.2)
[2020-12-12 21:22] LABS: INR 1.1 (<1.2); Partial Thromboplastin Time 23.2 sec (22.0-30.0); Prothrombin Time 11.2 sec (9.0-12.0)
[2020-12-12] MEDS ORDERED: POTASSIUM CHLORIDE ER 20 MEQ TAB.ER PO STA (21:25)
[2020-12-12 21:32] LABS: Basophils % (A) 0 %; Eosinophils # (A) 0.1 k/uL (0-0.7); Eosinophils % (A) 1 %; HCT 40.1 % (34.0-46.0); Lymphocytes # (A) 1.9 k/uL (1.0-4.8); Lymphocytes % (A) 19 %; MCH 28.2 pg (25.0-35.0); MCHC 34.9 g/dL (31.0-37.0); MCV 81.1 fL (80.0-100.0); Mean Platelet Volume 8.3; Monocytes % (A) 10 %; Neutrophils # (A) 6.6 k/uL (1.3-7.7); Neutrophils % (A) 68 %; Platelet Count 226 k/uL (150-450); RBC 4.95 m/uL (3.80-5.40); RDW 13.3 % (11.5-15.5); WBC 9.7 k/uL (3.8-10.6)
[2020-12-12 22:13] LABS: Appearance,Urine Clear (Clear); Bilirubin,Urine Negative (Negative); Blood,Urine Negative (Negative); Color,Urine Yellow; Glucose,Urine (UA) Negative (Negative); Ketones,Urine 1+ (Negative); Leukocyte Esterase,Urine Negative (Negative); Mucus,Urine Moderate /hpf; Nitrite,Urine Negative (Negative); PH, Urine 5.5 (5.0-8.0); Protein,Urine 1+ (Negative); Specific Gravity,Urine 1.024 (1.001-1.035); Squamous Epithelial Cell,Urine 2 /hpf (0-4); Urobilinogen,Urine <2.0 mg/dL (<2.0); WBC,Urine 1 /hpf (0-5)
[2020-12-12 22:22] LABS: Cocaine Screen,Urine Not Detected (NotDetected); Phencyclidine Screen,Urine Not Detected (NotDetected)
[2020-12-12 22:23] LABS: Amphetamine Screen,Urine Detected (NotDetected); Barbiturate Screen,Urine Not Detected (NotDetected); Benzodiazepines Screen,Urine Not Detected (NotDetected); Methadone Screen, Urine Not Detected (NotDetected); Opiate Screen,Urine Not Detected (NotDetected); Oxycodone Screen, Urine Not Detected (NotDetected); Tricyclic Antidepressant,Urine Not Detected (NotDetected); Urn Cannabinoid Scrn Not Detected (NotDetected)
[2020-12-13] MEDS ORDERED: LORazepam 1 MG TAB PO PRN (04:09)
[2020-12-13] MEDS ORDERED: MAG HYDROX/AL HYDROX/SIMETH 30 ML CUP PO PRN (04:09)
[2020-12-13] MEDS ORDERED: MAGNESIUM HYDROXIDE 2,400 MG/10 ML CUP PO PRN (04:09)
[2020-12-13] MEDS ORDERED: ACETAMINOPHEN TAB 325 MG TAB PO PRN (04:09)
[2020-12-13] MEDS ORDERED: LORazepam 2 MG/ML INJ IM PRN (04:14)
[2020-12-13] MEDS ORDERED: haloperidoL 5 MG TAB PO PRN (04:15)
[2020-12-13] MEDS ORDERED: HALOPERIDOL LACTATE 5 MG/ML 1 ML VIAL IM PRN (04:15)
[2020-12-13] MEDS: NICOTINE 14MG/24HR PATCH TRANSDERM SCH ×2 (09:18→09:22)
--- NOTE | 2020-12-13 10:32 | P.HP ---
Psychiatric H&P - . H&P Date: 12/13/20 History & Physical: Allergies Allergy/AdvReac Type Severity Reaction Status Date / Time No Known Allergies Allergy Verified 12/12/20 22:40 Vital Signs Temp 97.6 F 12/13/20 04:18 Pulse 109 H 12/13/20 04:18 Resp 18 12/13/20 04:18 BP 123/75 12/13/20 04:18 Pulse Ox 94 L 12/13/20 04:18 Intake & Output 12/12/20 12/13/20 12/13/20 18:59 06:59 18:59 Weight 70.3 kg Laboratory Last Values WBC 9.7 k/uL (3.8-10.6) 12/12/20 21:02 RBC 4.95 m/uL (3.80-5.40) 12/12/20 21:02 Hgb 14.0 gm/dL (11.4-16.0) 12/12/20 21:02 Hct 40.1 % (34.0-46.0) 12/12/20 21:02 MCV 81.1 fL (80.0-100.0) 12/12/20 21:02 MCH 28.2 pg (25.0-35.0) 12/12/20 21:02 MCHC 34.9 g/dL (31.0-37.0) 12/12/20 21:02 RDW 13.3 % (11.5-15.5) 12/12/20 21:02 Plt Count 226 k/uL (150-450) 12/12/20 21:02 MPV 8.3 12/12/20 21:02 Neutrophils % 68 % 12/12/20 21:02 Lymphocytes % 19 % 12/12/20 21:02 Monocytes % 10 % 12/12/20 21:02 Eosinophils % 1 % 12/12/20 21:02 Basophils % 0 % 12/12/20 21:02 Neutrophils # 6.6 k/uL (1.3-7.7) 12/12/20 21:02 Lymphocytes # 1.9 k/uL (1.0-4.8) 12/12/20 21:02 Monocytes # 1.0 k/uL (0-1.0) 12/12/20 21:02 Eosinophils # 0.1 k/uL (0-0.7) 12/12/20 21:02 Basophils # 0.0 k/uL (0-0.2) 12/12/20 21:02 PT 11.2 sec (9.0-12.0) 12/12/20 21:02 INR 1.1 (<1.2) 12/12/20 21:02 APTT 23.2 sec (22.0-30.0) 12/12/20 21:02 Sodium 136 mmol/L (137-145) L 12/12/20 21:02 Potassium 3.4 mmol/L (3.5-5.1) L 12/12/20 21:02 Chloride 103 mmol/L (98-107) 12/12/20 21:02 Carbon Dioxide 23 mmol/L (22-30) 12/12/20 21:02 Anion Gap 10 mmol/L 12/12/20 21:02 BUN 16 mg/dL (7-17) 12/12/20 21:02 Creatinine 0.96 mg/dL (0.52-1.04) 12/12/20 21:02 Est GFR (CKD-EPI)AfAm >90 (>60 ml/min/1.73 sqM) 12/12/20 21:02 Est GFR (CKD-EPI)NonAf 79 (>60 ml/min/1.73 sqM) 12/12/20 21:02 Glucose 82 mg/dL (74-99) 12/12/20 21:02 Calcium 9.6 mg/dL (8.4-10.2) 12/12/20 21:02 Total Bilirubin 1.2 mg/dL (0.2-1.3) 12/12/20 21:02 AST 37 U/L (14-36) H 12/12/20 21:02 ALT 21 U/L (4-34) 12/12/20 21:02 Alkaline Phosphatase 65 U/L (38-126) 12/12/20 21:02 Troponin I <0.012 ng/mL (0.000-0.034) 12/12/20 21:02 Total Protein 7.6 g/dL (6.3-8.2) 12/12/20 21:02 Albumin 4.5 g/dL (3.5-5.0) 12/12/20 21:02 Triglycerides 46 mg/dL (<150) 12/12/20 21:02 Cholesterol 159 mg/dL (<200) 12/12/20 21:02 LDL Cholesterol, Calc 95 mg/dL (0-99) 12/12/20 21:02 HDL Cholesterol 55 mg/dL (40-60) 12/12/20 21:02 TSH 0.611 mIU/L (0.465-4.680) 12/12/20 21:02 Urine Color Yellow 12/12/20 21:47 Urine Appearance Clear (Clear) 12/12/20 21:47 Urine pH 5.5 (5.0-8.0) 12/12/20 21:47 Ur Specific [place] 1.024 (1.001-1.035) 12/12/20 21:47 Urine Protein 1+ (Negative) H 12/12/20 21:47 Urine Glucose (UA) Negative (Negative) 12/12/20 21:47 Urine Ketones 1+ (Negative) H 12/12/20 21:47 Urine Blood Negative (Negative) 12/12/20 21:47 Urine Nitrite Negative (Negative) 12/12/20 21:47 Urine Bilirubin Negative (Negative) 12/12/20 21:47 Urine Urobilinogen <2.0 mg/dL (<2.0) 12/12/20 21:47 Ur Leukocyte Esterase Negative (Negative) 12/12/20 21:47 Urine WBC 1 /hpf (0-5) 12/12/20 21:47 Ur Squamous Epith Cells 2 /hpf (0-4) 12/12/20 21:47 Urine Mucus Moderate /hpf (None) H 12/12/20 21:47 Urine HCG, Qual Not Detected (Not Detectd) 12/12/20 21:47 Urine Opiates Screen Not Detected (NotDetected) 12/12/20 21:47 Ur Oxycodone Screen Not Detected (NotDetected) 12/12/20 21:47 Urine Methadone Screen Not Detected (NotDetected) 12/12/20 21:47 Ur Propoxyphene Screen Not Detected (NotDetected) 12/12/20 21:47 Ur Barbiturates Screen Not Detected (NotDetected) 12/12/20 21:47 U Tricyclic Antidepress Not Detected (NotDetected) 12/12/20 21:47 Ur Phencyclidine Scrn Not Detected (NotDetected) 02 21:47 Ur Amphetamines Screen Detected (NotDetected) H 12/12/20 21:47 U Methamphetamines Scrn Detected (NotDetected) H 12/12/20 21:47 U Benzodiazepines Scrn Not Detected (NotDetected) 12/12/20 21:47 Urine Cocaine Screen Not Detected (NotDetected) 12/12/20 21:47 U Marijuana (THC) Screen Not Detected (NotDetected) 12/12/20 21:47 Serum Alcohol <10 mg/dL 12/12/20 21:02 Coronavirus (PCR) Not Detected (Not Detectd) 12/13/20 00:39 12/13/20 10:19 IDENTIFYING DATA: Patient is a 30-year-old single female who was admitted for psychosis. HPI: Patient presented to the hospital on 12/12/2020 but in by EMS and police for evaluation. Much of the history is obtained through chart review as the patient is unable to be a reliable historian at this time. As per chart review, the patient's friend reported that the patient has been drinking a lot lately. The patient's friend reports that the patient was acting bizarre and running to the house naked. As per petition written by the police district switchboard operator, is the patient was standing naked in the bathroom confused and aggressive with police/EMS. She was making statements that she is in "agent" of God and works for a [employer]. In the emergency department, the patient was altered and not answering any questions. She appeared to be very restless and was not able to stop moving. Urinary drug screen was positive for methamphetamines and amphetamines. The patient required Ativan prior to transfer to the unit due to her gross disorganization and elevated psychomotor activity. Upon evaluation on the unit, the patient is expressing that she is just feeling very tired. She is cooperative but somnolent. She does admit that she was using methamphetamines yesterday and states that she does not recall exactly the events leading up to her hospitalization. Currently, the patient is denying any suicidal or homicidal ideation, intention, and/or plan. She is denying any paranoia or delusions. She is not reporting any auditory or visual hallucinations. The patient states that she just feels very tired and would like to rest in bed. She reports that Zyprexa has helped her calm down in the past. She is willing to sign in voluntarily at this time stating that she needs medications to help her calm down from her drug use. PAST PSYCHIATRIC HISTORY: The patient was admitted to this psychiatric unit from 06/05/2020 - 06/22/2020 with diagnoses of acute psychosis, polysubstance abuse, substance-induced psychosis. The patient is unable to recall past psychiatric medications aside from Zyprexa and Ativan. Review of the patient's chart reveals that the patient has also had trials of Wellbutrin, melatonin, Effexor and Adderall in the past. She was discharged to [facility] after her previous admission. PMH: No reported medical history ALLERGIES: NKDA CHEMICAL DEPENDENCY HISTORY: Patient admits to methamphetamine use. Her drug of choice is methamphetamines which she has been on and off for the past 10 years. There is reported alcohol use but we are unable to quantify at this time. She does have a history of cocaine use. She was most recently at [facility] for polysubstance abuse this past May. FAMILY PSYCHIATRIC/SUBSTANCE USE HISTORY: Currently unable to obtain any information regarding family psychiatric/substance abuse history. SOCIAL HISTORY: Patient is single and never . She reports having one son who is currently living with the patient's mother. She graduated from high school and has a couple of credits from community college. Unable to obtain any further social history. MENTAL STATUS EXAM: General Appearance: Patient appears to be stated age is somnolent, directable, and attempts to cooperate. Patient appears disheveled, and is dressed in hospital gown. Behavior: Patient is seated without any agitated behavior. Patient is somewhat somnolent. Eye contact is intermittent. Speech: Patient's speech is fluent and nonpressured. Low in volume. Nonspontaneous. Mood/Affect: Patient reports their mood is "feeling tired," affect is congruent and somnolent. Suicidality/Homicidality: The patient is currently denying any suicidal or homicidal ideation, intent, and/or plan. Perceptions: Patient is denying any auditory or visual hallucinations. Though content/process: The patient is currently not endorsing any delusional thought content. Thought process appears to be linear and logical in short conversation. Memory and concentration: AOX3, grossly intact for the purposes of this session. Concentration appears to be intact for the purposes of this session. Judgment and insight: poor STRENGTHS/WEAKNESSES: Strength is that patient is resilient. Weakness is that patient engages and polysubstance abuse. INTELLECT: average IMPRESSIONS: Acute psychosis Methamphetamine abuse Methamphetamine-induced psychosis PLAN: -Patient is admitted under involuntary status to MHU for stabilization of psychiatric symptoms and safety. Patient was converted to a voluntary admission. Patient signed adult voluntary form and medication consent and is placed in patient's chart. -Medications : Will start patient on Zyprexa 2.5 mg by mouth 3 times a day for mood stabilization/psychosis -Ativan and Haldol PRN for agitation/aggression -Patient was counselled on substance abuse -Patient was informed of the risks, benefits and side effects of the medication and patient verbally consented to taking the medications. -Internal Medicine consult to perform medical evaluation and physical. -NRT - nicotine patch -SW on board for discharge planning. Encourage patient to participate in groups to work on coping skills.
--- NOTE | 2020-12-13 14:04 | P.CONS ---
History of Present Illness - Reason for Consult Management of hypertension - History of Present Illness 30-year-old the female was admitted for break acute psychosis unable to get much of a history of because of her. Drowsiness and active psychosis at this time. Although patient is medically stable looks pretty well medical leave. Didn't provide me much of history. Review of Systems Unable to obtain due to her clinical condition Past Medical History Past Medical History: No Reported History History of Any Multi-Drug Resistant Organisms: None Reported Past Surgical History: No Surgical Hx Reported Smoking Status: Light tobacco smoker Medications and Allergies Home Medications Medication Instructions Recorded Confirmed Type Falmina 0.1-0.02mg Tablet 1 tab PO DAILY 12/12/20 12/12/20 History OLANZapine [ZyPREXA] 5 mg PO HS 12/12/20 12/12/20 History PARoxetine [Paxil] 10 mg PO DAILY 12/12/20 12/12/20 History cloNIDine HCL [Catapres] 0.1 mg PO BID 12/12/20 12/12/20 History Allergies Allergy/AdvReac Type Severity Reaction Status Date / Time No Known Allergies Allergy Verified 12/12/20 22:40 Physical Exam Vitals: Vital Signs Temp Pulse Pulse Resp BP BP Pulse Ox 12/13/20 13:42 96.9 F L 12/13/20 04:18 97.6 F 109 H 18 123/75 94 L 12/13/20 04:00 97.8 F 105 H 16 103/46 98 12/13/20 00:51 98.1 F 98 16 102/56 98 12/12/20 19:52 97.9 F 66 16 147/79 98 Intake and Output 12/12/20 12/13/20 12/13/20 22:59 06:59 14:59 Other: Weight 68.039 kg 70.3 kg PHYSICAL EXAMINATION: GENERAL: The patient is drowsy and unable to assess orientation actively psychotic, not in any acute distress. Well developed, well nourished. HEENT: Pupils are round and equally reacting to light. EOMI. No scleral icterus. No conjunctival pallor. Normocephalic, atraumatic. No pharyngeal erythema. No thyromegaly. CARDIOVASCULAR: S1 and S2 present. No murmurs, rubs, or gallops. PULMONARY: Chest is clear to auscultation, no wheezing or crackles. ABDOMEN: Soft, nontender, nondistended, normoactive bowel sounds. No palpable organomegaly. MUSCULOSKELETAL: No joint swelling or deformity. EXTREMITIES: No cyanosis, clubbing, or pedal edema. NEUROLOGICAL: Acute psychosis SKIN: No rashes. Results CBC & Chem 7: 12/12/20 21:02 12/12/20 21:02 Labs: Abnormal Lab Results - Last 24 Hours (Table) 12/12/20 12/12/20 Range/Units 21:02 21:47 Sodium 136 L (137-145) mmol/L Potassium 3.4 L (3.5-5.1) mmol/L AST 37 H (14-36) U/L Urine Protein 1+ H (Negative) Urine Ketones 1+ H (Negative) Urine Mucus Moderate H (None) /hpf Ur Amphetamines Screen Detected H (NotDetected) U Methamphetamines Scrn Detected H (NotDetected) Assessment and Plan Plan: -Tachycardia patient the was on clonidine which is held because of which patient probably has diffuse tachycardia don't recommend restarting on clonidine because of her blood pressure today which is borderline and concern for hypotension as patient's tachycardia is only low 100s recommend to monitor and patient is tachycardic because of use of meth methamphetamine -Methamphetamine abuse -Substance-induced acute psychosis: Management as per primary service -Polysubstance abuse -Depression
[2020-12-13] MEDS: OLANZapine 2.5 MG TAB PO SCH ×2 (16:33→22:17)
[2020-12-13 17:21] LABS: Hemoglobin A1C 4.7 % (4.0-6.0)
[2020-12-14] MEDS: OLANZapine 2.5 MG TAB PO SCH ×3 (09:16→22:12)
[2020-12-14] MEDS: NICOTINE 14MG/24HR PATCH TRANSDERM SCH (09:17)
--- NOTE | 2020-12-14 10:52 | P.PN ---
Progress Note - Text Progress Note Date: 12/14/20 Interval History: Patient was seen resting in bed and was directable and agreeable to speak with the conventional mortgage underwriter in her room. Currently, the patient reports that she is feeling tired. She states that she is still coming off of her methamphetamine use. She is not reporting any suicidal or homicidal ideation, intention, and/or plan. She is not reporting any auditory or visual hallucinations. She denies any paranoia or delusions. She has been adherent with her medications and is not reporting any significant side effects at this time. The patient remains primarily isolative to herself in her room. She does report that she has been getting up for meals. Mental Status Exam: General Appearance: Patient appears to be stated age is alert, directable, and cooperative. Patient appears slightly disheveled. Behavior: Patient is calmly seated without any agitated behavior. She continues to present as somnolent. Eye contact has improved. Speech: Patient's speech is fluent and nonpressured. Her low in volume. Nonspontaneous. Mood/Affect: Mood is improving mildly, affect is congruent and blunted. Suicidality/Homicidality: Patient denies having any suicidal or homicidal ideation intent or plan. Perceptions: Patient denies any visual hallucinations and denies any auditory hallucinations Though content/process: There is no evidence of any delusional thought content and thought process is linear and goal-directed. Memory and concentration: AOX3, grossly intact for the purposes of this session Judgment and insight: Improving mildly Assessment Acute psychosis Methamphetamine abuse Methamphetamine-induced psychosis Plan: -Patient continues to meet criteria for inpatient psychiatric admission for symptom stabilization and safety. -Medications: Zyprexa will be increased to 5 mg by mouth twice a day for mood stabilization/psychosis -When necessary Ativan and Haldol for agitation/aggression. -NRT - nicotine patch -SW on board for discharge planning. Encouraged the patient to participate in milieu. -Anticipate discharge Thursday.
[2020-12-15] MEDS: OLANZapine 2.5 MG TAB PO SCH ×3 (08:18→21:50)
[2020-12-15] MEDS: NICOTINE 14MG/24HR PATCH TRANSDERM SCH (08:18)
--- NOTE | 2020-12-15 10:30 | P.PN ---
Progress Note - Text Progress Note Date: 12/15/20 Interval History: Patient was seen resting in bed and was directable and agreeable to speak with the web content writer in her room. The patient continues to endorse that she is feeling tired. She is not reporting any suicidal or homicidal ideation, intention, and/or plan. She is not reporting any auditory or visual hallucinations. She denies any paranoia or delusions. She has been adherent with her medications and is not reporting any significant side effects. She continues to be slowed at herself in her room. She does get up for meals. She states that after discharge she plans to return to her parents home. Mental Status Exam: General Appearance: Patient appears to be stated age is alert, directable, and cooperative. Hygiene and grooming appear improved Behavior: Patient is calmly seated without any agitated behavior. She continues to present as somnolent. Eye contact is fair. Speech: Patient's speech is fluent and nonpressured. Her low in volume. Nonspontaneous. Mood/Affect: Mood is improving mildly, affect is congruent and blunted. Suicidality/Homicidality: Patient denies having any suicidal or homicidal ideation intent or plan. Perceptions: Patient denies any visual hallucinations and denies any auditory hallucinations Though content/process: There is no evidence of any delusional thought content and thought process is linear and goal-directed. Memory and concentration: AOX3, grossly intact for the purposes of this session Judgment and insight: Improving mildly Assessment Acute psychosis Methamphetamine abuse Methamphetamine-induced psychosis Plan: -Patient continues to meet criteria for inpatient psychiatric admission for symptom stabilization and safety. -Medications: Continue Zyprexa 5 mg by mouth twice a day for mood stabilization/psychosis -When necessary Ativan and Haldol for agitation/aggression. -NRT - nicotine patch -SW on board for discharge planning. Encouraged the patient to participate in milieu. -Anticipate discharge Thursday.
[2020-12-16] MEDS: OLANZapine 2.5 MG TAB PO SCH ×3 (07:59→21:17)
[2020-12-16] MEDS: NICOTINE 14MG/24HR PATCH TRANSDERM SCH (08:01)
--- NOTE | 2020-12-16 10:23 | P.PN ---
Progress Note - Text Progress Note Date: 12/16/20 Interval History: Patient was seen resting in bed and was directable and agreeable to speak with the insurance underwriter sales in her room. The patient continues to endorse that she is feeling tired and expresses some irritability. Although, the patient is not reporting any particular stressors or reasons for her to be irritable. She is not reporting any suicidal or homicidal ideation, intention, and/or plan. She is not reporting any auditory or visual hallucinations. She denies any paranoia or delusions. She has been adherent with her medications and is not reporting any significant side effects. She has been noted to be out of bed and out of her room more. Mental Status Exam: General Appearance: Patient appears to be stated age is alert, directable, and cooperative. Hygiene and grooming appear good. Behavior: Patient is calmly seated without any agitated behavior. She continues to present as somnolent. Eye contact is fair. Speech: Patient's speech is fluent and nonpressured, low in volume. Nonspontaneous. Mood/Affect: Mood is improving mildly, affect is congruent and somewhat irritable. Suicidality/Homicidality: Patient denies having any suicidal or homicidal ideation intent or plan. Perceptions: Patient denies any visual hallucinations and denies any auditory hallucinations Though content/process: There is no evidence of any delusional thought content and thought process is linear and goal-directed. Memory and concentration: AOX3, grossly intact for the purposes of this session Judgment and insight: Improving mildly Assessment Acute psychosis Methamphetamine abuse Methamphetamine-induced psychosis Plan: -Patient continues to meet criteria for inpatient psychiatric admission for symptom stabilization and safety. -Medications: Continue Zyprexa 5 mg by mouth twice a day for mood stabilization/psychosis -When necessary Ativan and Haldol for agitation/aggression. -NRT - nicotine patch -SW on board for discharge planning. Encouraged the patient to participate in milieu. -Anticipate discharge Thursday.
[2020-12-17 06:35] VITALS: BP 118/57; PULSE 80; RESP 18
[2020-12-17] MEDS: NICOTINE 14MG/24HR PATCH TRANSDERM SCH (08:01)
[2020-12-17] MEDS: OLANZapine 2.5 MG TAB PO SCH (08:01)
[2020-12-17 09:48] VITALS: TEMP 97.3
--- NOTE | 2020-12-17 11:20 | P.DS ---
Providers Date of admission: 12/13/20 04:02 Expected date of discharge: 12/17/20 Attending physician: Reji Bueno MD Consults: 12/13/20 04:09 Consult Physician Routine Consulting Provider: Thi Goldstein Consult Reason/Comments: H&P for mental health admission Do you want consulting provider notified?: Yes, Notify in am Primary care physician: Nathan Cam - Discharge Diagnosis(es) (1) Acute psychosis Current Visit: Yes Status: Acute Priority: High (2) Methamphetamine abuse Current Visit: No Status: Chronic Priority: High Hospital Course: Admission HPI: Patient is a 30-year-old single female who was admitted for psychosis. Patient presented to the hospital on 12/12/2020 but in by EMS and police for evaluation. Much of the history is obtained through chart review as the patient is unable to be a reliable historian at this time. As per chart review, the patient's friend reported that the patient has been drinking a lot lately. The patient's friend reports that the patient was acting bizarre and running to the house naked. As per petition written by the naval police coxswain, is the patient was standing naked in the bathroom confused and aggressive with police/EMS. She was making statements that she is in "agent" of God and works for a [employer]. In the emergency department, the patient was altered and not answering any questions. She appeared to be very restless and was not able to stop moving. Urinary drug screen was positive for methamphetamines and amphetamines. The patient required Ativan prior to transfer to the unit due to her gross disorganization and elevated psychomotor activity. Upon evaluation on the unit, the patient is expressing that she is just feeling very tired. She is cooperative but somnolent. She does admit that she was using methamphetamines yesterday and states that she does not recall exactly the events leading up to her hospitalization. Currently, the patient is denying any suicidal or homicidal ideation, intention, and/or plan. She is denying any paranoia or delusions. She is not reporting any auditory or visual hallucinations. The patient states that she just feels very tired and would like to rest in bed. She reports that Zyprexa has helped her calm down in the past. She is willing to sign in voluntarily at this time stating that she needs medications to help her calm down from her drug use. Hospital course: Upon admission to the unit patient was initially somnolent and primarily isolative to herself in her room. The patient was involuntarily brought in to the unit but agreed to sign in voluntarily. The patient was started on a regimen of Zyprexa for mood stabilization/psychosis. The patient was adherent with her medications and reported no significant side effects. Throughout the course of the hospitalization, the patient remained primarily isolative to her room but gradually began stepping out of her room and participating in milieu activities. She gradually improved in terms of hygiene and grooming, energy, sleep, and mood. The patient does have a significant history of methamphetamine abuse and was counseled at length. The patient was also offered to go to inpatient rehabilitation for her substance abuse which she declines at this time. On the day of discharge, the patient is not reporting any suicidal or homicidal ideation, intention, and/or plan. She is not reporting any auditory or visual hallucinations. She is denying any paranoia or delusions. She expresses that she needs to quit methamphetamine abuse. She is adherent to medications and is not reporting any significant side effects at this time. The patient denies any access to firearms or other weapons. The patient was counseled on her medications and the need for regular compliance. She was also encouraged to follow-up with her outpatient mental health and primary care providers. Prior to discharge, family meeting will be arranged by social media editor to answer any questions and ensure safety. The patient does express that she needs to quit methamphetamines because if she is to keep coming back to the psychiatric unit, she may "lose my rights in the future." Mental status exam: General Appearance: Patient appears to be stated age is alert, pleasant, and cooperative. Patient is in no acute distress and has good hygiene and grooming Behavior: Patient is calmly seated without any agitated behavior. Eye contact is appropriate. Normal psychomotor activity. Speech: Patient's speech is fluent and nonpressured. Mood/Affect: Patient reports their mood is "much better", affect is congruent and euthymic. Suicidality/Homicidality: Patient denies having any suicidal or homicidal ideation intent or plan. Perceptions: Patient denies any auditory or visual hallucinations. Though content/process: There is no evidence of any delusional thought content and thought process is linear and goal-directed. Patient is future-oriented. Memory and concentration: AOX3, grossly intact for the purposes of this session. Can spell "WORLD" backwards correctly. Judgment and insight: Improved with guarded prognosis Impression: Acute psychosis Methamphetamine abuse Methamphetamine-induced psychosis Plan: -Continue with discharge today as patient has improved and stabilized psychiatrically and is not currently an imminent threat to herself and/or others. Patient will remain at chronically elevated risk for harm to self and/or others due to her substance abuse. -Continue medications: Zyprexa 5 mg by mouth twice daily for mood stabilization. -Patient was counseled on the need for medication compliance and appropriate follow-up at mental health and also primary care for medical issues. Patient verbalized understanding and agreed. -Social work to arrange for and conduct family meeting to ensure safety upon discharge and answer any questions/concerns. Social work also to arrange for patients follow up appointments with [facility] for psychiatric care along with follow up with primary care provider. -Patient counseled on abstaining from recreational drugs and marijuana and alcohol. Was informed/educated on the adverse effects on their physical and mental health. Patient verbally agreed and understood. Patient was offered substance abuse treatment however declined at this time. -Patient was instructed to return to the hospital or seek immediate medical care if their psychiatric or medical symptoms do worsen or reoccur. -Psychoeducation and supportive therapy provided to patient. Risks and benefits of pharmacological treatment versus the risks and benefits of nontreatment weight and discussed. Informed consent discussion held. Common side effects of psychotropics discussed such as, but not limited to headache, GI disturbance, sexual dysfunction, movement disorders, sedation, and orthostatic hypotension. Life threatening and blackbox warnings of prescribed medications also discussed. Potential risks of operating a vehicle or heavy machinery discussed with patient at length. Advised on importance of compliance and a reliable and responsible manner. Patient advised to review FDA consumer labeling of all medications prior to taking. Patient verbalized understanding of potential risks, and agrees with current treatment plan. Patient advised to medically contact physician/emergency personnel if any acute changes in condition occur. Vital Signs Temp 97.3 F L 12/17/20 08:00 Pulse 80 12/17/20 06:34 Resp 18 12/17/20 06:34 BP 118/57 12/17/20 06:34 Pulse Ox 97 12/17/20 06:34 Intake & Output 12/16/20 12/17/20 12/17/20 18:59 06:59 18:59 Weight 72.6 kg Laboratory Results WBC 9.7 k/uL (3.8-10.6) 12/12/20 21:02 RBC 4.95 m/uL (3.80-5.40) 12/12/20 21:02 Hgb 14.0 gm/dL (11.4-16.0) 12/12/20 21:02 Hct 40.1 % (34.0-46.0) 12/12/20 21:02 MCV 81.1 fL (80.0-100.0) 12/12/20 21:02 MCH 28.2 pg (25.0-35.0) 12/12/20 21: MCHC 34.9 g/dL (31.0-37.0) 12/12/20 21:02 RDW 13.3 % (11.5-15.5) 12/12/20 21:02 Plt Count 226 k/uL (150-450) 12/12/20 21:02 MPV 8.3 12/12/20 21:02 Neutrophils % 68 % 12/12/20 21:02 Lymphocytes % 19 % 12/12/20 21:02 Monocytes % 10 % 12/12/20 21:02 Eosinophils % 1 % 12/12/20 21:02 Basophils % 0 % 12/12/20 21:02 Neutrophils # 6.6 k/uL (1.3-7.7) 12/12/20 21:02 Lymphocytes # 1.9 k/uL (1.0-4.8) 12/12/20 21:02 Monocytes # 1.0 k/uL (0-1.0) 12/12/20 21:02 Eosinophils # 0.1 k/uL (0-0.7) 12/12/20 21:02 Basophils # 0.0 k/uL (0-0.2) 12/12/20 21:02 PT 11.2 sec (9.0-12.0) 12/12/20 21:02 INR 1.1 (<1.2) 12/12/20 21:02 APTT 23.2 sec (22.0-30.0) 12/12/20 21:02 Sodium 136 mmol/L (137-145) L 12/12/20 21:02 Potassium 3.4 mmol/L (3.5-5.1) L 12/12/20 21:02 Chloride 103 mmol/L (98-107) 12/12/20 21:02 Carbon Dioxide 23 mmol/L (22-30) 12/12/20 21:02 Anion Gap 10 mmol/L 12/12/20 21:02 BUN 16 mg/dL (7-17) 12/12/20 21:02 Creatinine 0.96 mg/dL (0.52-1.04) 12/12/20 21:02 Est GFR (CKD-EPI)AfAm >90 (>60 ml/min/1.73 sqM) 12/12/20 21:02 Est GFR (CKD-EPI)NonAf 79 (>60 ml/min/1.73 sqM) 12/12/20 21:02 Glucose 82 mg/dL (74-99) 12/12/20 21:[address] Glu mg/dL 88 12/12/20 21:02 Hemoglobin A1c 4.7 % (4.0-6.0) 12/12/20 21:02 Calcium 9.6 mg/dL (8.4-10.2) 12/12/20 21:02 Total Bilirubin 1.2 mg/dL (0.2-1.3) 12/12/20 21:02 AST 37 U/L (14-36) H 12/12/20 21:02 ALT 21 U/L (4-34) 12/12/20 21:02 Alkaline Phosphatase 65 U/L (38-126) 12/12/20 21:02 Troponin I <0.012 ng/mL (0.000-0.034) 12/12/20 21:02 Total Protein 7.6 g/dL (6.3-8.2) 12/12/20 21:02 Albumin 4.5 g/dL (3.5-5.0) 12/12/20 21:02 Triglycerides 46 mg/dL (<150) 12/12/20 21:02 Cholesterol 159 mg/dL (<200) 12/12/20 21:02 LDL Cholesterol, Calc 95 mg/dL (0-99) 12/12/20 21:02 HDL Cholesterol 55 mg/dL (40-60) 12/12/20 21:02 TSH 0.611 mIU/L (0.465-4.680) 12/12/20 21:02 Urine Color Yellow 12/12/20 21:47 Urine Appearance Clear (Clear) 12/12/20 21:47 Urine pH 5.5 (5.0-8.0) 12/12/20 21:47 Ur Specific [place] 1.024 (1.001-1.035) 12/12/20 21:47 Urine Protein 1+ (Negative) H 12/12/20 21:47 Urine Glucose (UA) Negative (Negative) 12/12/20 21:47 Urine Ketones 1+ (Negative) H 12/12/20 21:47 Urine Blood Negative (Negative) 12/12/20 21:47 Urine Nitrite Negative (Negative) 12/12/20:47 Urine Bilirubin Negative (Negative) 12/12/20 21:47 Urine Urobilinogen <2.0 mg/dL (<2.0) 12/12/20 21:47 Ur Leukocyte Esterase Negative (Negative) 12/12/20 21:47 Urine WBC 1 /hpf (0-5) 12/12/20 21:47 Ur Squamous Epith Cells 2 /hpf (0-4) 12/12/20 21:47 Urine Mucus Moderate /hpf (None) H 12/12/20 21:47 Urine HCG, Qual Not Detected (Not Detectd) 12/12/20 21:47 Urine Opiates Screen Not Detected (NotDetected) 12/12/20 21:47 Ur Oxycodone Screen Not Detected (NotDetected) 12/12/20 21:47 Urine Methadone Screen Not Detected (NotDetected) 12/12/20 21:47 Ur Propoxyphene Screen Not Detected (NotDetected) 12/12/20 21:47 Ur Barbiturates Screen Not Detected (NotDetected) 12/12/20 21:47 U Tricyclic Antidepress Not Detected (NotDetected) 12/12/20 21:47 Ur Phencyclidine Scrn Not Detected (NotDetected) 12/12/20 21:47 Ur Amphetamines Screen Detected (NotDetected) H 12/12/20 21:47 U Methamphetamines Scrn Detected (NotDetected) H 12/12/20 21:47 U Benzodiazepines Scrn Not Detected (NotDetected) 12/12/20 21:47 Urine Cocaine Screen Not Detected (NotDetected) 12/12/20 21:47 U Marijuana (THC) Screen Not Detected (NotDetected) 12/12/20 21:47 Serum Alcohol <10 mg/dL 12/12/20 21:02 Coronavirus (PCR) Not Detected (Not Detectd) 12/13/20 00:39 Allergies Allergy/AdvReac Type Severity Reaction Status Date / Time No Known Allergies Allergy Verified 12/12/20 22:40 Patient Condition at Discharge: Stable Plan - Discharge Summary Discharge Rx Participant: No New Discharge Prescriptions: New Nicotine 14Mg/24Hr Patch [Habitrol] 1 patch TRANSDERM DAILY 30 Days patch OLANZapine [ZyPREXA] 5 mg PO BID 30 Days tablet Continue Falmina 0.1-0.02mg Tablet 1 tab PO DAILY Discontinued cloNIDine HCL [Catapres] 0.1 mg PO BID PARoxetine [Paxil] 10 mg PO DAILY OLANZapine [ZyPREXA] 5 mg PO HS Discharge Medication List Falmina 0.1-0.02mg Tablet 1 tab PO DAILY 12/12/20 [History] Nicotine 14Mg/24Hr Patch [Habitrol] 1 patch TRANSDERM DAILY 30 Days patch 12/17/20 [Rx] OLANZapine [ZyPREXA] 5 mg PO BID 30 Days tablet 12/17/20 [Rx] Follow up Appointment(s)/Referral(s): Nathan Cam MD [Primary Care Provider] - 1-2 days Activity/Diet/Wound Care/Special Instructions: Activity and diet as tolerated. Avoid the use of street drugs and alcohol. Take all medications as prescribed. When you are in need of refills on your medications please contact your medical provider and/or outpatient psychiatrist to have this done. Please go to scheduled outpatient appointment for aftercare treatment. If symptoms return or become worse, call the crisis line at and/or go to the nearest emergency room for evaluation. Discharge Disposition: HOME SELF-CARE
[2020-12-17] MEDS ORDERED: OLANZapine 5 MG TAB PO SCH (21:00)
== END 2020-12-17 16:51 | disposition home or self-care (01) | DRG 885 ==
LOC: EC 19:45 → 3MHU 12-13 04:02
PROVIDERS: ADMIT Psychiatry & Neurology Psychiatry; ATTEND Psychiatry & Neurology Psychiatry
DX: F23 Brief psychotic disorder (principal); F41.9 Anxiety disorder, unspecified; F17.200 Nicotine dependence, unspecified, uncomplicated; I10 Essential (primary) hypertension; F15.159 Other stimulant abuse with stimulant-induced psychotic disorder, unspecified; Z20.822 Contact with and (suspected) exposure to COVID-19; F32.9 Major depressive disorder, single episode, unspecified; Z79.899 Other long term (current) drug therapy
CPT/HCPCS: 36415; 80053; 80061; 80306; 80320; 81001; 81025; 83036; 84443; 84484; 85025; 85610; 85730; 87635; 93005; 96372; 99285

== ENCOUNTER 2021-04-24 17:44 | Emergency (ER) | payer OTHER ==
[2021-04-24 19:04] LABS: Appearance,Urine Clear (Clear); Bilirubin,Urine 2+ (Negative); Blood,Urine Moderate (Negative); Color,Urine Dark Brown; Glucose,Urine (UA) Negative (Negative); Ketones,Urine Negative (Negative); Leukocyte Esterase,Urine Negative (Negative); Mucus,Urine Rare /hpf; Nitrite,Urine Positive (Negative); PH, Urine 7.5 (5.0-8.0); Protein,Urine Negative (Negative); RBC,Urine <1 /hpf (0-5); Specific Gravity,Urine 1.015 (1.001-1.035); Squamous Epithelial Cell,Urine 2 /hpf (0-4); WBC,Urine 3 /hpf (0-5)
--- NOTE | 2021-04-24 19:05 | ED ---
Female Urogenital HPI - General Chief complaint: Urogenital Stated complaint: Frequent urination Time Seen by Provider: 04/24/21 18:41 Source: patient Mode of arrival: ambulatory Limitations: no limitations - History of Present Illness Initial comments: Healthy 30-year-old female with a history of UTIs presenting today with urinary frequency, hesitancy and dysuria concerned that she has a urinary tract infection. Patient also states she is concerned she could have sexual transmitted infection no known contacts no vaginal discharge or itching. Last Menstrual Period: 04/17/21 - Related Data Home Medications Medication Instructions Recorded Confirmed Falmina 0.1-0.02mg Tablet 1 tab PO DAILY 12/12/20 12/12/20 Previous Rx's Medication Instructions Recorded Nicotine 14Mg/24Hr Patch [Habitrol] 1 patch TRANSDERM DAILY 30 Days 12/17/20 patch OLANZapine [ZyPREXA] 5 mg PO BID 30 Days tablet 12/17/20 Doxycycline [Vibramycin] 100 mg PO BID 7 Days #14 capsule 04/24/21 Allergies Allergy/AdvReac Type Severity Reaction Status Date / Time No Known Allergies Allergy Verified 04/24/21 18:11 Review of Systems ROS Statement: Those systems with pertinent positive or pertinent negative responses have been documented in the HPI. ROS Other: All systems not noted in ROS Statement are negative. Past Medical History Past Medical History: No Reported History History of Any Multi-Drug Resistant Organisms: None Reported Past Surgical History: No Surgical Hx Reported Past Psychological History: Anxiety, Depression Smoking Status: Light tobacco smoker Past Alcohol Use History: None Reported Past Drug Use History: None Reported General Exam - General Exam Comments Initial Comments: Physical Exam GENERAL: Patient is well-developed and well-nourished. Patient is nontoxic and well-hydrated and is in no distress. HENT: Normocephalic, Atraumatic. EYES: PERRL, EOMI PULMONARY: Unlabored respirations. CARDIOVASCULAR: RRR Warm and well perfused extremities ABDOMEN: Non-distended SKIN: No rashes or bruising : Normal external genitalia, normal vaginal vault no purulent discharge no strawberry cervix no pain on bimanual exam NEUROLOGIC: Alert and oriented Normal speech Normal gait MUSCULOSKELETAL: Moving all extremities with no apparent injury PSYCHIATRIC: No SI/HI Limitations: no limitations Course Vital Signs 06/30/21 06/30/21 06/30/21 18:09 20:11 22:24 Temperature 98.9 F 98 F Pulse Rate 77 88 79 Respiratory 16 20 18 Rate Blood Pressure 110/65 106/72 132/77 O2 Sat by Pulse 96 99 97 Oximetry Medical Decision Making - Medical Decision Making The patient was seen and evaluated history was obtained from the patient Pelvic exam was performed I see no signs of sexual transmitted infection there is no discharge there is no redness there is dark blood consistent with menses Results were discussed with patient who would like him. Treatment for sexual transmitted infection IM Rocephin was ordered, by mouth doxycycline was prescribed Urinalysis with no gross urinary tract infection, there is bilirubin in the urine this was present 2 years ago. Patient was advised to follow up primary care for this abnormal finding - Lab Data Lab Results 04/24/21 04/24/21 04/24/21 Range/Units 18:35 18:35 20:31 Urine Color Dark Brown Urine Appearance Clear (Clear) Urine pH 7.5 (5.0-8.0) Ur Specific [place] 1.015 (1.001-1.035) Urine Protein Negative (Negative) Urine Glucose (UA) Negative (Negative) Urine Ketones Negative (Negative) Urine Blood Moderate H (Negative) Urine Nitrite Positive H (Negative) Urine Bilirubin 2+ H (Negative) Urine Urobilinogen 8.0 (<2.0) mg/dL Ur Leukocyte Esterase Negative (Negative) Urine RBC <1 (0-5) /hpf Urine WBC 3 (0-5) /hpf Ur Squamous Epith Cells 2 (0-4) /hpf Urine Mucus Rare H (None) /hpf Urine HCG, Qual Not Detected (Not Detectd) Trichomonas Ag (Rapid) Negative (Negative) Disposition Clinical Impression: Dysuria Disposition: HOME SELF-CARE Condition: Stable Prescriptions: Doxycycline [Vibramycin] 100 mg PO BID 7 Days #14 capsule Is patient prescribed a controlled substance at d/c from ED?: No Referrals: None,Stated [Primary Care Provider] - 1-2 days
[2021-04-24] MEDS ORDERED: cefTRIAXone 250 MG VIAL IM STA (21:58)
[2021-04-24 22:25] VITALS: BP 132/77; PULSE 79; RESP 18; TEMP 98
== END 2021-04-24 22:25 | disposition home or self-care (01) ==
LOC: EC 17:44
DX: R30.0 Dysuria (principal); F17.210 Nicotine dependence, cigarettes, uncomplicated
CPT/HCPCS: 81001; 81025; 87070; 87491; 87591; 87808; 96374; 99283

== ENCOUNTER → 2022-02-28 | Outpatient (CLI) | payer OTHER ==
[2022-02-28 11:17] LABS: Basophils # (A) 0.06 X 10*3/uL (0.00-0.10); Basophils % (A) 0.8 %; Eosinophils # (A) 0.22 X 10*3/uL (0.04-0.35); Eosinophils % (A) 3.1 %; HCT 40.6 % (37.2-46.3); HGB 13.2 g/dL (12.0-15.0); Lymphocytes # (A) 1.82 X 10*3/uL (0.90-5.00); Lymphocytes % (A) 25.7 %; MCHC 32.5 g/dL (32.0-37.0); Mean Platelet Volume 10.5 fL (9.5-12.2); Monocytes % (A) 8.5 %; NRBC Per 100 WBC 0 /100 WBCS (0.0-0.0); Neutrophils # (A) 4.32 X 10*3/uL (1.80-7.70); Neutrophils % (A) 60.9 %; Platelet Count 178 X 10*3/uL (140-440); RBC 4.72 X 10*6/uL (4.10-5.20); RDW 12.6 % (11.5-14.5); WBC 7.09 X 10*3/uL (4.50-10.00)
[2022-02-28 11:34] LABS: ALT 32 U/L (8-44); AST 25 U/L (13-35); African American GFR (CKD) 111.1 (60.0-200.0); Albumin/Globulin Ratio 1.37 (1.60-3.17); Alkaline Phosphatase 55 U/L (41-126); BUN/Creat Ratio 14.25 Ratio (12.00-20.00); Bilirubin, Conjugated <0.20 mg/dL (0.20-0.40); Blood Urea Nitrogen 11.5 mg/dL (9.0-27.0); Calcium 9.3 mg/dL (8.7-10.3); Carbon Dioxide 22.9 mmol/L (20.0-27.5); Chloride 103 mmol/L (96-109); Globulin 2.9 g/dL (1.6-3.3); Glucose 84 mg/dL (70-110); Non-African American GFR(CKD) 95.9 (60.0-200.0); Potassium 4.3 mmol/L (3.5-5.5); Sodium 137 mmol/L (135-145); Total Protein 6.9 g/dL (6.2-8.2)
== END | disposition home or self-care (01) ==
LOC: LABWHC1 07:37
DX: F33.2 Major depressive disorder, recurrent severe without psychotic features (principal)
CPT/HCPCS: 36415; 80053; 80061; 82248; 82306; 83036; 84439; 84443; 85025

== ENCOUNTER 2022-05-31 21:27 | Emergency (ER) | payer OTHER ==
[2022-05-31] MEDS ORDERED: LORazepam 2 MG/ML INJ IV STA (22:01)
[2022-05-31] MEDS ORDERED: ONDANSETRON 4 MG/2 ML VIAL IVP STA (22:01)
[2022-05-31] MEDS ORDERED: SODIUM CHLORIDE 0.9% 1,000 ML IV STA (22:04)
--- NOTE | 2022-05-31 22:04 | ED ---
General Adult HPI - General Chief complaint: Overdose Stated complaint: Overdose Time Seen by Provider: 05/31/22 21:40 Source: patient Mode of arrival: ambulatory Limitations: no limitations - History of Present Illness Initial comments: Dictation was produced using Taplet dictation software. please excuse any grammatical, word or spelling errors. Chief Complaint: Patient is 32-year-old female presents to the emergency department for overdose History of Present Illness: 32-year-old female she is trying to quit methamphetamine. 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 She has not had any methamphetamines for 2-3 weeks. Patient states today she decided started drinking alcohol. She had 4-5 margaritas. Patient states that she had a significant urge and set of resorting to using meth she decided to take a stimulant supplements. She took 2 Hydroxycut's, diet, only bears and 2 supplemental pre-workout drinks. Patient states she feels significant and nauseated. Denies any numbness and paresthesias to the arms or legs. No chest pain or shortness of breath. Patient also has history of antidepressant use. In the waiting room and through triage patient has been aggressive towards staff. The ROS documented in this emergency department record has been reviewed and confirmed by me. Those systems with pertinent positive or negative responses have been documented in the HPI. All other systems are other negative and/or noncontributory. PHYSICAL EXAM: General Impression: Alert and oriented x3, the agitated HEENT: Normocephalic atraumatic, extra-ocular movements intact, pupils equal and reactive to light bilaterally, mucous membranes moist. Cardiovascular: Heart regular rate and rhythm Chest: Able to complete full sentences, no retractions, no tachypnea Abdomen: abdomen soft, non-tender, non-distended, no organomegaly Musculoskeletal: Pulses present and equal in all extremities, no peripheral chiquis a Motor: no focal deficits noted Neurological: CN II-XII grossly intact, no focal motor or sensory deficits noted, no clonus Skin: Intact with no visualized rashes Psych: Normal affect and mood ED course: 32 Year old female presents to the emergency department for overdose. She overdosed on stimulant supplements that are usually thought of as weight loss supplements. So I had consumes several alcoholic beverages today. Patient has any suicidal or homicidal ideation. Denies any psychotic symptoms. Abdomen 3 evaluation obtained per it CBC unremarkable. Coag panel is negative. Metabolic panel shows mild acidosis. Osmolality is 305 however osmolar gap is normal. Lactic acidosis 2.5. Toxicology labs are negative. Serum alcohol is 71. Patient given IV fluids and observed in the emergency department for approximately 3 hours and 20 minutes she was reevaluated at bedside at 12:55 AM found to be in stable medical condition. Patient is well-appearing. She is calm and cooperative. Patient does not have a high-risk features. Patient will be discharged.Advised follow-up with primary care doctor. She is notified that her lactic acid level slightly elevated. This likely from some agitation prior to arrival in the ER. EKG interpretation: Ventricular rate 79, sinus rhythm,. 174, Q is 95, QTc 4:30. No [place] prolongation, no QTC prolongation, no ST or T-wave changes noted. Overall, this EKG is unremarkable - Related Data Home Medications Medication Instructions Recorded Confirmed Falmina 0.1-0.02mg Tablet 1 tab PO DAILY 12/12/20 12/12/20 Previous Rx's Medication Instructions Recorded Nicotine 14Mg/24Hr Patch [Habitrol] 1 patch TRANSDERM DAILY 30 Days 12/17/20 patch OLANZapine [ZyPREXA] 5 mg PO BID 30 Days tablet 12/17/20 Doxycycline [Vibramycin] 100 mg PO BID 7 Days #14 capsule 04/24/21 Allergies Allergy/AdvReac Type Severity Reaction Status Date / Time No Known Allergies Allergy Verified 05/31/22 21:45 Review of Systems ROS Statement: Those systems with pertinent positive or pertinent negative responses have been documented in the HPI. ROS Other: All systems not noted in ROS Statement are negative. Past Medical History Past Medical History: No Reported History Additional Past Medical History / Comment(s): meth addiction. History of Any Multi-Drug Resistant Organisms: None Reported Past Surgical History: No Surgical Hx Reported Past Psychological History: Anxiety, Depression Smoking Status: Light tobacco smoker Past Alcohol Use History: Daily Past Drug Use History: None Reported, Methamphetamine General Exam Limitations: no limitations Course Vital Signs 05/31/22 21:40 Pulse Rate 100 Respiratory 18 Rate Blood Pressure 142/86 O2 Sat by Pulse 97 Oximetry Medical Decision Making - Lab Data Result diagrams: 05/31/22 22:39 05/31/22 22:39 Lab Results 08/06/22 08/06/22 08/06/22 Range/Units 22:39 22:39 22:39 WBC 9.8 (3.8-10.6) k/uL RBC 4.87 (3.80-5.40) m/uL Hgb 14.0 (11.4-16.0) gm/dL Hct 40.8 (34.0-46.0) % MCV 83.8 (80.0-100.0) fL MCH 28.7 (25.0-35.0) pg MCHC 34.2 (31.0-37.0) g/dL RDW 13.1 (11.5-15.5) % Plt Count 222 (150-450) k/uL MPV 8.5 Neutrophils % 79 % Lymphocytes % 16 % Monocytes % 3 % Eosinophils % 0 % Basophils % 1 % Neutrophils # 7.7 (1.3-7.7) k/uL Lymphocytes # 1.5 (1.0-4.8) k/uL Monocytes # 0.3 (0-1.0) k/uL Eosinophils # 0.0 (0-0.7) k/uL Basophils # 0.1 (0-0.2) k/uL PT 10.1 (9.0-12.0) sec INR 0.9 (<1.2) APTT 22.4 (22.0-30.0) sec Sodium 138 (137-145) mmol/L Potassium 3.5 (3.5-5.1) mmol/L Chloride 106 (98-107) mmol/L Carbon Dioxide 19 L (22-30) mmol/L Anion Gap 13 mmol/L BUN 16 (7-17) mg/dL Creatinine 0.89 (0.52-1.04) mg/dL Est GFR (CKD-EPI)AfAm >90 (>60 ml/min/1.73 sqM) Est GFR (CKD-EPI)NonAf 85 (>60 ml/min/1.73 sqM) Glucose 89 (74-99) mg/dL Osmolality 305 H (280-301) mosm/kg Plasma Lactic Acid Mohan (0.7-2.0) mmol/L Calcium 9.6 (8.4-10.2) mg/dL Magnesium 1.6 (1.6-2.3) mg/dL Total Bilirubin 0.5 (0.2-1.3) mg/dL AST 26 (14-36) U/L ALT 29 (4-34) U/L Alkaline Phosphatase 78 (38-126) U/L Creatine Kinase 89 (30-135) U/L Total Protein 7.6 (6.3-8.2) g/dL Albumin 4.5 (3.5-5.0) g/dL Urine HCG, Qual (Not Detectd) Salicylates <1.0 mg/dL Urine Opiates Screen (NotDetected) Ur Oxycodone Screen (NotDetected) Urine Methadone Screen (NotDetected) Ur Propoxyphene Screen (NotDetected) Acetaminophen <10.0 ug/mL Ur Barbiturates Screen (NotDetected) U Tricyclic Antidepress (NotDetected) Ur Phencyclidine Scrn (NotDetected) Ur Amphetamines Screen (NotDetected) U Methamphetamines Scrn (NotDetected) U Benzodiazepines Scrn (NotDetected) Urine Cocaine Screen (NotDetected) U Marijuana (THC) Screen (NotDetected) Serum Alcohol 71 mg/dL 05/31/22 05/31/22 05/31/22 Range/Units 22:39 23:31 23:31 WBC (3.8-10.6) k/uL RBC (3.80-5.40) m/uL Hgb (11.4-16.0) gm/dL Hct (34.0-46.0) % MCV (80.0-100.0) fL MCH (25.0-35.0) pg MCHC (31.0-37.0) g/dL RDW (11.5-15.5) % Plt Count (150-450) k/uL MPV Neutrophils % % Lymphocytes % % Monocytes % % Eosinophils % % Basophils % % Neutrophils # (1.3-7.7) k/uL Lymphocytes # (1.0-4.8) k/uL Monocytes # (0-1.0) k/uL Eosinophils # (0-0.7) k/uL Basophils # (0-0.2) k/uL PT (9.0-12.0) sec INR (<1.2) APTT (22.0-30.0) sec Sodium (137-145) mmol/L Potassium (3.5-5.1) mmol/L Chloride (98-107) mmol/L Carbon Dioxide (22-30) mmol/L Anion Gap mmol/L BUN (7-17) mg/dL Creatinine (0.52-1.04) mg/dL Est GFR (CKD-EPI)AfAm (>60 ml/min/1.73 sqM) Est GFR (CKD-EPI)NonAf (>60 ml/min/1.73 sqM) Glucose (74-99) mg/dL Osmolality (280-301) mosm/kg Plasma Lactic Acid Mohan 2.5 H* (0.7-2.0) mmol/L Calcium (8.4-10.2) mg/dL Magnesium (1.6-2.3) mg/dL Total Bilirubin (0.2-1.3) mg/dL AST (14-36) U/L ALT (4-34) U/L Alkaline Phosphatase (38-126) U/L Creatine Kinase (30-135) U/L Total Protein (6.3-8.2) g/dL Albumin (3.5-5.0) g/dL Urine HCG, Qual Not Detected (Not Detectd) Salicylates mg/dL Urine Opiates Screen Not Detected (NotDetected) Ur Oxycodone Screen Not Detected (NotDetected) Urine Methadone Screen Not Detected (NotDetected) Ur Propoxyphene Screen Not Detected (NotDetected) Acetaminophen ug/mL Ur Barbiturates Screen Not Detected (NotDetected) U Tricyclic Antidepress Not Detected (NotDetected) Ur Phencyclidine Scrn Not Detected (NotDetected) Ur Amphetamines Screen Not Detected (NotDetected) U Methamphetamines Scrn Not Detected (NotDetected) U Benzodiazepines Scrn Not Detected (NotDetected) Urine Cocaine Screen Not Detected (NotDetected) U Marijuana (THC) Screen Not Detected (NotDetected) Serum Alcohol mg/dL Disposition Clinical Impression: Nausea Disposition: HOME SELF-CARE Condition: Good Instructions (If sedation given, give patient instructions): Acute Nausea and Vomiting (ED) Is patient prescribed a controlled substance at d/c from ED?: No Referrals: Mer Barrios [Primary Care Provider] - 1-2 days Time of Disposition: 00:54
[2022-05-31 23:04] LABS: Basophils # (A) 0.1 k/uL (0-0.2); Basophils % (A) 1 %; Eosinophils % (A) 0 %; HCT 40.8 % (34.0-46.0); Lymphocytes # (A) 1.5 k/uL (1.0-4.8); Lymphocytes % (A) 16 %; MCH 28.7 pg (25.0-35.0); MCHC 34.2 g/dL (31.0-37.0); MCV 83.8 fL (80.0-100.0); Mean Platelet Volume 8.5; Monocytes # (A) 0.3 k/uL (0-1.0); Monocytes % (A) 3 %; Neutrophils # (A) 7.7 k/uL (1.3-7.7); Neutrophils % (A) 79 %; Platelet Count 222 k/uL (150-450); RBC 4.87 m/uL (3.80-5.40); RDW 13.1 % (11.5-15.5); WBC 9.8 k/uL (3.8-10.6)
[2022-05-31 23:17] LABS: INR 0.9 (<1.2); Partial Thromboplastin Time 22.4 sec (22.0-30.0); Prothrombin Time 10.1 sec (9.0-12.0)
[2022-05-31 23:26] LABS: ALT 29 U/L (4-34); AST 26 U/L (14-36); Acetaminophen <10.0 ug/mL; African American GFR (CKD) >90 (>60 ml/min/1.73 sqM); Albumin 4.5 g/dL (3.5-5.0); Alcohol 71 mg/dL; Alkaline Phosphatase 78 U/L (38-126); Anion Gap 13 mmol/L; Blood Urea Nitrogen 16 mg/dL (7-17); Calcium 9.6 mg/dL (8.4-10.2); Carbon Dioxide 19 mmol/L (22-30); Chloride 106 mmol/L (98-107); Creatine Kinase 89 U/L (30-135); Glucose 89 mg/dL (74-99); Magnesium 1.6 mg/dL (1.6-2.3); Non-African American GFR(CKD) 85 (>60 ml/min/1.73 sqM); Potassium 3.5 mmol/L (3.5-5.1); Salicylate <1.0 mg/dL; Sodium 138 mmol/L (137-145); Total Bilirubin 0.5 mg/dL (0.2-1.3); Total Protein 7.6 g/dL (6.3-8.2)
[2022-06-01] MEDS ORDERED: ONDANSETRON 4 MG/2 ML VIAL IVP STA (00:24)
[2022-06-01 00:46] LABS: Amphetamine Screen,Urine Not Detected (NotDetected); Barbiturate Screen,Urine Not Detected (NotDetected); Benzodiazepines Screen,Urine Not Detected (NotDetected); Cocaine Screen,Urine Not Detected (NotDetected); Methadone Screen, Urine Not Detected (NotDetected); Opiate Screen,Urine Not Detected (NotDetected); Oxycodone Screen, Urine Not Detected (NotDetected); Phencyclidine Screen,Urine Not Detected (NotDetected); Tricyclic Antidepressant,Urine Not Detected (NotDetected); Urn Cannabinoid Scrn Not Detected (NotDetected)
[2022-06-01] MEDS ORDERED: ONDANSETRON 4 MG ODT STARTER PACK 2 TAB BTL PO STA (00:54)
[2022-06-01 01:04] VITALS: BP 109/67; PULSE 71; RESP 16; TEMP 98.9
== END 2022-06-01 01:18 | disposition home or self-care (01) ==
LOC: EC 21:27
DX: T50.901A Poisoning by unspecified drugs, medicaments and biological substances, accidental (unintentional), initial encounter (principal); F10.10 Alcohol abuse, uncomplicated; Y90.3 Blood alcohol level of 60-79 mg/100 ml; Z72.0 Tobacco use
CPT/HCPCS: 36415; 93005; 83930; 80053; 82550; 83605; 83735; 85025; 85610; 85730; 80143; 80179; 99285; 96374; 96375; 96376; 96361; G0480; J2060; J2405; 80306; 80320; 81025

== ENCOUNTER 2022-08-19 08:07 | Emergency (ER) | payer OTHER ==
[2022-08-19 08:10] VITALS: BP 126/84; PULSE 94; RESP 20; TEMP 97.5
[2022-08-19] MEDS ORDERED: KETOROLAC 15 MG/ML 1 ML VIAL IM STA (08:51)
[2022-08-19 09:08] LABS: Basophils % (A) 1 %; Eosinophils # (A) 0.2 k/uL (0-0.7); Eosinophils % (A) 3 %; HCT 41.6 % (34.0-46.0); HGB 14.5 gm/dL (11.4-16.0); Lymphocytes # (A) 1.4 k/uL (1.0-4.8); Lymphocytes % (A) 26 %; MCH 28.3 pg (25.0-35.0); MCHC 34.9 g/dL (31.0-37.0); MCV 80.9 fL (80.0-100.0); Mean Platelet Volume 8.4; Monocytes # (A) 0.3 k/uL (0-1.0); Monocytes % (A) 6 %; Neutrophils # (A) 3.3 k/uL (1.3-7.7); Neutrophils % (A) 63 %; Platelet Count 228 k/uL (150-450); RBC 5.13 m/uL (3.80-5.40); RDW 12.2 % (11.5-15.5); WBC 5.3 k/uL (3.8-10.6)
[2022-08-19 09:15] LABS: Appearance,Urine Clear (Clear); Bilirubin,Urine Negative (Negative); Blood,Urine Negative (Negative); Color,Urine Yellow; Glucose,Urine (UA) Negative (Negative); Ketones,Urine Negative (Negative); Leukocyte Esterase,Urine Small (Negative); Mucus,Urine Rare /hpf; Nitrite,Urine Negative (Negative); PH, Urine 7.5 (5.0-8.0); Protein,Urine Trace (Negative); RBC,Urine <1 /hpf (0-5); Specific Gravity,Urine 1.026 (1.001-1.035); Squamous Epithelial Cell,Urine 5 /hpf (0-4); Urobilinogen,Urine <2.0 mg/dL (<2.0); WBC,Urine 2 /hpf (0-5)
[2022-08-19 09:19] LABS: ALT 21 U/L (4-34); AST 23 U/L (14-36); African American GFR (CKD) >90 (>60 ml/min/1.73 sqM); Albumin 4.2 g/dL (3.5-5.0); Alkaline Phosphatase 62 U/L (38-126); Anion Gap 12 mmol/L; Blood Urea Nitrogen 14 mg/dL (7-17); Calcium 9.1 mg/dL (8.4-10.2); Carbon Dioxide 22 mmol/L (22-30); Chloride 105 mmol/L (98-107); Glucose 94 mg/dL (74-99); Non-African American GFR(CKD) 84 (>60 ml/min/1.73 sqM); Potassium 4.4 mmol/L (3.5-5.1); Sodium 139 mmol/L (137-145); Total Bilirubin 0.4 mg/dL (0.2-1.3); Total Protein 7.2 g/dL (6.3-8.2)
--- NOTE | 2022-08-19 09:26 | XR ---
Lumbar spine HISTORY: Low back pain 3 views of the lumbar spine Lumbar vertebral bodies show preserved height, alignment, and bone mineralization. Mild loss of disc height present L5-S1. No evident paraspinal mass. IMPRESSION: Some loss of disc height present at L5-S1 consistent with degenerative disc disease, lumb ar MRI may be of benefit
[2022-08-19] MEDS ORDERED: DEXAMETHASONE SOD PHOSPHATE 10 MG/ML 1 ML VIAL IVP STA (09:39)
--- NOTE | 2022-08-19 09:55 | ED ---
Back Pain HPI - General Chief Complaint: Back Pain/Injury Stated Complaint: back pain Time Seen by Provider: 08/19/22 08:28 Source: patient, RN notes reviewed Limitations: no limitations - History of Present Illness Initial Comments: This is a 32-year-old female who presents to the emergency department for low back pain. States that symptoms started yesterday and worsened this morning. She is having a lot of trouble moving due to the pain. Denies any loss of bowel or bladder control or saddle anesthesia. She does work at a [employer] and does a lot of bending and lifting. She also has an appointment with her chiropractor this evening. Denies any burning with urination or blood in her urine. She has no history of kidney stones or associated nausea and vomiting. Denies any fevers, chills, sore throat, cough, dyspnea, chest pain, palpitations, abdominal pain, nausea, vomiting, diarrhea, or headaches. MD Complaint: back pain Onset/Timin -: days(s) - Related Data Home Medications Medication Instructions Recorded Confirmed Falmina 0.1-0.02mg Tablet 1 tab PO DAILY 12/12/20 12/12/20 Previous Rx's Medication Instructions Recorded Nicotine 14Mg/24Hr Patch [Habitrol] 1 patch TRANSDERM DAILY 30 Days 12/17/20 patch OLANZapine [ZyPREXA] 5 mg PO BID 30 Days tablet 12/17/20 Doxycycline [Vibramycin] 100 mg PO BID 7 Days #14 capsule 04/24/21 Baclofen 5 mg PO TID PRN #20 tablet 08/19/22 HYDROcodone/APAP 5-325MG [[place] 1 tab PO Q6HR PRN 3 Days #12 tab 08/19/22 5-325] Ondansetron Odt [Zofran Odt] 4 mg PO Q8HR PRN #15 tab 08/19/22 predniSONE 50 mg PO Q24H 5 Days #5 tablet 08/19/22 Allergies Allergy/AdvReac Type Severity Reaction Status Date / Time No Known Allergies Allergy Verified 08/19/22 08:10 Review of Systems ROS Statement: Those systems with pertinent positive or pertinent negative responses have been documented in the HPI. ROS Other: All systems not noted in ROS Statement are negative. Past Medical History Past Medical History: No Reported History Additional Past Medical History / Comment(s): meth addiction. History of Any Multi-Drug Resistant Organisms: None Reported Past Surgical History: No Surgical Hx Reported Past Psychological History: Anxiety, Depression Smoking Status: Light tobacco smoker Past Alcohol Use History: Daily Past Drug Use History: None Reported, Methamphetamine General Exam Limitations: no limitations General appearance: alert, in distress Head exam: Present: atraumatic, normocephalic, normal inspection Respiratory exam: Present: normal lung sounds bilaterally. Absent: respiratory distress, wheezes, rales, rhonchi, stridor Cardiovascular Exam: Present: regular rate, normal rhythm, normal heart sounds. Absent: systolic murmur, diastolic murmur, rubs, gallop, clicks Back exam: Present: normal inspection, tenderness (Right lower and mid back pain), CVA tenderness (R). Absent: full ROM (secondary to pain), CVA tenderness (L) Neurological exam: Present: alert, oriented X3, CN II-XII intact Psychiatric exam: Present: normal affect, normal mood Skin exam: Present: warm, dry, intact, normal color. Absent: rash Course Vital Signs 08/19/22 08:08 Temperature 97.5 F L Pulse Rate 94 Respiratory 20 Rate Blood Pressure 126/84 O2 Sat by Pulse 99 Oximetry Medical Decision Making - Medical Decision Making This is a 32-year-old female who presents to the emergency department for back pain. Given the associated CVA tenderness, Baseline lab work and urinalysis were obtained, all of which were nonactionable and had no findings such as leukocytosis or hematuria to suggest a ureteral calculus. X-ray of the lumbar spine obtained revealing mild degenerative disc disease. Patient was given Toradol and Decadron in the emergency department. Prescription for 5 day course of prednisone, [place], and baclofen provided. Also given Zofran in the event these medications make her nauseous. She is instructed to take the first dose of baclofen and [place] at night until she knows how they effect her, as they may be sedating. Also advised [id number] lidocaine cream and applying ice for 10-15 minutes every 2-[address] Tapia, orthopedics, provided. Advised she contact the office if symptoms do not improve. Return precautions reviewed in depth, the patient is instructed to return to the emergency department with any new, worsening, or concerning symptoms, especially loss of bowel or bladder control and saddle anesthesia. Patient verbalized understanding. This case was discussed in detail with the attending ED physician. Presentation, findings, and treatment plan discussed in detail as well. - Lab Data Result diagrams: 08/19/22 08:53 08/19/22 08:53 Lab Results 08/19/22 08/19/22 08/19/22 Range/Units 08:53 08:53 08:53 WBC 5.3 (3.8-10.6) k/uL RBC 5.13 (3.80-5.40) m/uL Hgb 14.5 (11.4-16.0) gm/dL Hct 41.6 (34.0-46.0) % MCV 80.9 (80.0-100.0) fL MCH 28.3 (25.0-35.0) pg MCHC 34.9 (31.0-37.0) g/dL RDW 12.2 (11.5-15.5) % Plt Count 228 (150-450) k/uL MPV 8.4 Neutrophils % 63 % Lymphocytes % 26 % Monocytes % 6 % Eosinophils % 3 % Basophils % 1 % Neutrophils # 3.3 (1.3-7.7) k/uL Lymphocytes # 1.4 (1.0-4.8) k/uL Monocytes # 0.3 (0-1.0) k/uL Eosinophils # 0.2 (0-0.7) k/uL Basophils # 0.0 (0-0.2) k/uL Sodium (137-145) mmol/L Potassium (3.5-5.1) mmol/L Chloride (98-107) mmol/L Carbon Dioxide (22-30) mmol/L Anion Gap mmol/L BUN (7-17) mg/dL Creatinine (0.52-1.04) mg/dL Est GFR (CKD-EPI)AfAm (>60 ml/min/1.73 sqM) Est GFR (CKD-EPI)NonAf (>60 ml/min/1.73 sqM) Glucose (74-99) mg/dL Calcium (8.4-10.2) mg/dL Total Bilirubin (0.2-1.3) mg/dL AST (14-36) U/L ALT (4-34) U/L Alkaline Phosphatase (38-126) U/L Total Protein (6.3-8.2) g/dL Albumin (3.5-5.0) g/dL Urine Color Yellow Urine Appearance Clear (Clear) Urine pH 7.5 (5.0-8.0) Ur Specific [place] 1.026 (1.001-1.035) Urine Protein Trace H (Negative) Urine Glucose (UA) Negative (Negative) Urine Ketones Negative (Negative) Urine Blood Negative (Negative) Urine Nitrite Negative (Negative) Urine Bilirubin Negative (Negative) Urine Urobilinogen <2.0 (<2.0) mg/dL Ur Leukocyte Esterase Small H (Negative) Urine RBC <1 (0-5) /hpf Urine WBC 2 (0-5) /hpf Ur Squamous Epith Cells 5 H (0-4) /hpf Urine Mucus Rare H (None) /hpf Urine HCG, Qual Not Detected (Not Detectd) 08/19/22 Range/Units 08:53 WBC (3.8-10.6) k/uL RBC (3.80-5.40) m/uL Hgb (11.4-16.0) gm/dL Hct (34.0-46.0) % MCV (80.0-100.0) fL MCH (25.0-35.0) pg MCHC (31.0-37.0) g/dL RDW (11.5-15.5) % Plt Count (150-450) k/uL MPV Neutrophils % % Lymphocytes % % Monocytes % % Eosinophils % % Basophils % % Neutrophils # (1.3-7.7) k/uL Lymphocytes # (1.0-4.8) k/uL Monocytes # (0-1.0) k/uL Eosinophils # (0-0.7) k/uL Basophils # (0-0.2) k/uL Sodium 139 (137-145) mmol/L Potassium 4.4 (3.5-5.1) mmol/L Chloride 105 (98-107) mmol/L Carbon Dioxide 22 (22-30) mmol/L Anion Gap 12 mmol/L BUN 14 (7-17) mg/dL Creatinine 0.90 (0.52-1.04) mg/dL Est GFR (CKD-EPI)AfAm >90 (>60 ml/min/1.73 sqM) Est GFR (CKD-EPI)NonAf 84 (>60 ml/min/1.73 sqM) Glucose 94 (74-99) mg/dL Calcium 9.1 (8.4-10.2) mg/dL Total Bilirubin 0.4 (0.2-1.3) mg/dL AST 23 (14-36) U/L ALT 21 (4-34) U/L Alkaline Phosphatase 62 (38-126) U/L Total Protein 7.2 (6.3-8.2) g/dL Albumin 4.2 (3.5-5.0) g/dL Urine Color Urine Appearance (Clear) Urine pH (5.0-8.0) Ur Specific [place] (1.001-1.035) Urine Protein (Negative) Urine Glucose (UA) (Negative) Urine Ketones (Negative) Urine Blood (Negative) Urine Nitrite (Negative) Urine Bilirubin (Negative) Urine Urobilinogen (<2.0) mg/dL Ur Leukocyte Esterase (Negative) Urine RBC (0-5) /hpf Urine WBC (0-5) /hpf Ur Squamous Epith Cells (0-4) /hpf Urine Mucus (None) /hpf Urine HCG, Qual (Not Detectd) - Radiology Data Radiology results: report reviewed, image reviewed Disposition Clinical Impression: Strain of lumbar region, DJD (degenerative joint disease) Disposition: HOME SELF-CARE Instructions (If sedation given, give patient instructions): Low Back Strain (ED), Acute Low Back Pain (ED), Lower Back Exercises (ED), Arthritis (ED) Additional Instructions: Return to the emergency department with any new, worsening, or concerning symptoms. Take the prednisone daily for 5 days. You can also apply [id number] lidocaine cream. Take the [place] sparingly when your pain is the most severe. Take your first dose of the baclofen and [place] at night until you know how they affect you, as they may be sedating. You should also apply ice for 10-15 minutes every 2-[address] Tapia, orthopedics, as listed below if symptoms do not improve in the next few days. Follow up with your primary care provider in 1-2 days. Prescriptions: Baclofen 5 mg PO TID PRN #20 tablet PRN Reason: Pain HYDROcodone/APAP 5-325MG [[place] 5-325] 1 tab PO Q6HR PRN 3 Days #12 tab PRN Reason: Pain predniSONE 50 mg PO Q24H 5 Days #5 tablet Ondansetron Odt [Zofran Odt] 4 mg PO Q8HR PRN #15 tab PRN Reason: Nausea And Vomiting Is patient prescribed a controlled substance at d/c from ED?: Yes When asked, does pt state using other controlled substances?: Yes If prescribed controlled substance>3 days was MAPS reviewed?: Prescribed <3 Days Referrals: Mer Barrios [Primary Care Provider] - 1-2 days Tejas Tapia DO [Doctor of Osteopathic Medicine] - 1-2 days
[2022-08-19] MEDS ORDERED: LIDOCAINE 5% PATCH TOPICAL SCH (10:00)
== END 2022-08-19 10:15 | disposition home or self-care (01) ==
LOC: EC 08:07
DX: S39.012A Strain of muscle, fascia and tendon of lower back, initial encounter (principal); M19.90 Unspecified osteoarthritis, unspecified site; F32.A Depression, unspecified; F41.9 Anxiety disorder, unspecified; F17.290 Nicotine dependence, other tobacco product, uncomplicated; Z79.899 Other long term (current) drug therapy; X58.XXXA Exposure to other specified factors, initial encounter
CPT/HCPCS: 36415; 80053; 85025; 81001; 81025; 72100; 99283; 96372; 96374; J1100; J1885

== ENCOUNTER 2022-09-21 20:18 | Emergency (ER) | payer OTHER ==
[2022-09-21 20:31] VITALS: RESP 16
[2022-09-21] MEDS ORDERED: ACETAMINOPHEN TAB 325 MG TAB PO STA (21:47)
--- NOTE | 2022-09-21 22:21 | XR ---
EXAMINATION TYPE: XR chest 2V DATE OF EXAM: 09/21/2022 COMPARISON: 06/17/2016 HISTORY: Cough and congestion TECHNIQUE: 2 views FINDINGS: Heart and mediastinum are normal. Lungs are clear. Diaphragm is normal. Bony thorax appears normal. IMPRESSION: Normal chest. No adverse change.
--- NOTE | 2022-09-21 23:27 | ED ---
URI HPI - General Chief Complaint: Upper Respiratory Infection Stated Complaint: Sore throat,headache Time Seen by Provider: 09/21/22 21:35 Source: patient Mode of arrival: ambulatory Limitations: no limitations - History of Present Illness Initial Comments: Patient is a 32-year-old female presenting with chief complaint of flulike symptoms. Patient states that starting this morning she has been having body aches, chills, headache, and sore throat. Admits to some congestion. Denies cough. No chest pain or difficulty breathing. No vomiting, abdominal pain, diarrhea. Patient has been taking Motrin for symptoms. She is tolerating oral intake well. No difficulty swallowing. - Related Data Home Medications Medication Instructions Recorded Confirmed Falmina 0.1-0.02mg Tablet 1 tab PO DAILY 12/12/20 12/12/20 Previous Rx's Medication Instructions Recorded Nicotine 14Mg/24Hr Patch [Habitrol] 1 patch TRANSDERM DAILY 30 Days 12/17/20 patch OLANZapine [ZyPREXA] 5 mg PO BID 30 Days tablet 12/17/20 Doxycycline [Vibramycin] 100 mg PO BID 7 Days #14 capsule 04/24/21 Baclofen 5 mg PO TID PRN #20 tablet 08/19/22 HYDROcodone/APAP 5-325MG [[place] 1 tab PO Q6HR PRN 3 Days #12 tab 08/19/22 5-325] Ondansetron Odt [Zofran Odt] 4 mg PO Q8HR PRN #15 tab 08/19/22 predniSONE 50 mg PO Q24H 5 Days #5 tablet 08/19/22 Lidocaine Viscous 2% [Xylocaine 5 ml MUCOUS MEM DAILY PRN #1 unit 09/21/22 Viscous] Allergies Allergy/AdvReac Type Severity Reaction Status Date / Time No Known Allergies Allergy Verified 09/21/22 20:28 Review of Systems ROS Statement: Those systems with pertinent positive or pertinent negative responses have been documented in the HPI. ROS Other: All systems not noted in ROS Statement are negative. 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 previous etoh abuse History of Any Multi-Drug Resistant Organisms: None Reported Past Surgical History: No Surgical Hx Reported Additional Past Surgical History / Comment(s): nasal Past Psychological History: Anxiety, Depression Smoking Status: Vaper Past Alcohol Use History: None Reported Past Drug Use History: None Reported General Exam Limitations: no limitations General appearance: alert, in no apparent distress Head exam: Present: atraumatic, normocephalic, normal inspection Eye exam: Present: normal appearance, PERRL, EOMI. Absent: scleral icterus, conjunctival injection, periorbital swelling ENT exam: Present: normal exam, normal oropharynx, mucous membranes moist, TM's normal bilaterally Neck exam: Present: normal inspection, full ROM Respiratory exam: Present: normal lung sounds bilaterally. Absent: respiratory distress, wheezes, rales, rhonchi, stridor Cardiovascular Exam: Present: regular rate, normal rhythm, normal heart sounds. Absent: systolic murmur, diastolic murmur, rubs, gallop, clicks Neurological exam: Present: alert, oriented X3, CN II-XII intact Psychiatric exam: Present: normal affect, normal mood Skin exam: Present: warm, dry, intact, normal color. Absent: rash Course Vital Signs 09/21/22 09/21/22 20:28 21:44 Temperature 97.1 F L 97.8 F Pulse Rate 87 80 Respiratory 16 16 Rate Blood Pressure 130/74 128/87 O2 Sat by Pulse 96 99 Oximetry Medical Decision Making - Medical Decision Making Patient is a 32-year-old female presenting with chief complaint of body aches, congestion, headache, sore throat that started this morning. Physical examination is unremarkable. Patient is negative for influenza, Covid, strep. Chest x-ray is negative. Patient is educated on viral infection and supportive treatment. Advised the use of Afrin nasal spray and Motrin and Tylenol. Also prescribed Viscous Lidocaine or aphthous ulcer. Follow-up with PCP. Report back to ER with any new or worsening symptoms. Discussed return parameters and answered all questions. Patient conveyed verbal understanding and agreed to the plan. I discussed this case in detail with my attending Dr. Galvan - Lab Data Lab Results 09/21/22 09/21/22 09/21/22 Range/Units 20:31 21:11 21:47 Coronavirus (PCR) Not Detected (Not Detectd) Influenza Type A RNA Not Detected (Not Detectd) Influenza Type B (PCR) Not Detected (Not Detectd) Group A Strep (PCR) NOT DETECTED (Not Detectd) Disposition Clinical Impression: Viral infection Disposition: HOME SELF-CARE Condition: Good Instructions (If sedation given, give patient instructions): Cold Symptoms (ED) Additional Instructions: Follow-up with PCP. Report back to ER with any new or worsening symptoms. You may take Afrin nasal spray for symptomatic relief. Take Motrin and Tylenol as needed for pain and fever control. Stay well-hydrated and get plenty of rest. Prescriptions: Lidocaine Viscous 2% [Xylocaine Viscous] 5 ml MUCOUS MEM DAILY PRN #1 unit PRN Reason: Pain Is patient prescribed a controlled substance at d/c from ED?: No Referrals: Mer Barrios [Primary Care Provider] - 1-2 days Time of Disposition: 23:27
[2022-09-21 23:38] VITALS: BP 119/78; PULSE 72; TEMP 98.7
== END 2022-09-21 23:37 | disposition home or self-care (01) ==
LOC: EC 20:18
DX: B34.9 Viral infection, unspecified (principal); F17.290 Nicotine dependence, other tobacco product, uncomplicated; Z20.822 Contact with and (suspected) exposure to COVID-19
CPT/HCPCS: 71046; 87502; 87635; 87651; 99284

== ENCOUNTER 2023-05-27 20:42 | Emergency (ER) | payer OTHER ==
[2023-05-27 21:02] VITALS: BP 108/75; PULSE 72; RESP 20; TEMP 98
--- NOTE | 2023-05-27 22:19 | ED ---
Nausea/Vomiting/Diarrhea HPI - General Chief complaint: Nausea/Vomiting/Diarrhea Stated complaint: Medication reaction Time Seen by Provider: 05/27/23 22:18 Source: patient Mode of arrival: ambulatory Limitations: no limitations - History of Present Illness Initial comments: 33-year-old female presenting with chief complaint of nausea and vomiting. She states that she took a higher dose of her wegovy today. She states "I can't keep anything down". - Related Data Home Medications Medication Instructions Recorded Confirmed Falmina 0.1-0.02mg Tablet 1 tab PO DAILY 12/12/20 12/12/20 Previous Rx's Medication Instructions Recorded Nicotine 14Mg/24Hr Patch [Habitrol] 1 patch TRANSDERM DAILY 30 Days 12/17/20 patch OLANZapine [ZyPREXA] 5 mg PO BID 30 Days tablet 12/17/20 Doxycycline [Vibramycin] 100 mg PO BID 7 Days #14 capsule 04/24/21 Baclofen 5 mg PO TID PRN #20 tablet 08/19/22 HYDROcodone/APAP 5-325MG [[place] 1 tab PO Q6HR PRN 3 Days #12 tab 08/19/22 5-325] Ondansetron Odt [Zofran Odt] 4 mg PO Q8HR PRN #15 tab 08/19/22 predniSONE 50 mg PO Q24H 5 Days #5 tablet 08/19/22 Lidocaine Viscous 2% [Xylocaine 5 ml MUCOUS MEM DAILY PRN #1 unit 09/21/22 Viscous] Allergies Allergy/AdvReac Type Severity Reaction Status Date / Time No Known Allergies Allergy Verified 09/21/22 20:28 Review of Systems ROS Statement: Those systems with pertinent positive or pertinent negative responses have been documented in the HPI. ROS Other: All systems not noted in ROS Statement are negative. 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 previous etoh abuse History of Any Multi-Drug Resistant Organisms: None Reported Past Surgical History: No Surgical Hx Reported Additional Past Surgical History / Comment(s): nasal Past Psychological History: Anxiety, Depression Smoking Status: Vaper Past Alcohol Use History: None Reported Past Drug Use History: None Reported General Exam - General Exam Comments Initial Comments: Visual Physical Exam Vital signs reviewed General: Well-appearing, nontoxic, no acute distress. Head: Normocephalic, atraumatic Eyes: PERRLA, EOMI ENT: Airway patent Chest: Nonlabored breathing Skin: No visual rash, normal skin tone Neuro: Alert and oriented 3 Musculoskeletal: No gross abnormalities Limitations: no limitations Course Vital Signs 05/27/23 20:59 Temperature 98 F Pulse Rate 72 Respiratory 20 Rate Blood Pressure 108/75 O2 Sat by Pulse 98 Oximetry Medical Decision Making - Medical Decision Making I performed the quick note portion of this exam, signed Faviola Suresh PA-C - Lab Data Result diagrams: 05/27/23 22:51 05/27/23 22:51 Lab Results 05/27/23 05/27/23 05/27/23 Range/Units 22:51 22:51 22:53 WBC 12.1 H (3.8-10.6) k/uL RBC 5.19 (3.80-5.40) m/uL Hgb 15.1 (11.4-16.0) gm/dL Hct 43.8 (34.0-46.0) % MCV 84.4 (80.0-100.0) fL MCH 29.1 (25.0-35.0) pg MCHC 34.4 (31.0-37.0) g/dL RDW 13.6 (11.5-15.5) % Plt Count 217 (150-450) k/uL MPV 8.9 Neutrophils % 83 % Lymphocytes % 10 % Monocytes % 5 % Eosinophils % 1 % Basophils % 1 % Neutrophils # 10.1 H (1.3-7.7) k/uL Lymphocytes # 1.2 (1.0-4.8) k/uL Monocytes # 0.6 (0-1.0) k/uL Eosinophils # 0.1 (0-0.7) k/uL Basophils # 0.1 (0-0.2) k/uL Sodium 136 L (137-145) mmol/L Potassium 4.8 (3.5-5.1) mmol/L Chloride 102 (98-107) mmol/L Carbon Dioxide 26 (22-30) mmol/L Anion Gap 8 mmol/L BUN 22 H (7-17) mg/dL Creatinine 0.79 (0.52-1.04) mg/dL Est GFR (CKD-EPI)AfAm >90 (>60 ml/min/1.73 sqM) Est GFR (CKD-EPI)NonAf >90 (>60 ml/min/1.73 sqM) Glucose 91 (74-99) mg/dL Calcium 9.6 (8.4-10.2) mg/dL Total Bilirubin 0.6 (0.2-1.3) mg/dL AST 26 (14-36) U/L ALT 23 (4-34) U/L Alkaline Phosphatase 71 (38-126) U/L Total Protein 7.8 (6.3-8.2) g/dL Albumin 4.3 (3.5-5.0) g/dL Urine Color Light Red Urine Appearance Turbid H (Clear) Urine pH 8.5 H (5.0-8.0) Ur Specific [place] 1.028 (1.001-1.035) Urine Protein 1+ H (Negative) Urine Glucose (UA) Negative (Negative) Urine Ketones Negative (Negative) Urine Blood Negative (Negative) Urine Nitrite Negative (Negative) Urine Bilirubin Negative (Negative) Urine Urobilinogen <2.0 (<2.0) mg/dL Ur Leukocyte Esterase Moderate H (Negative) Urine RBC 6 H (0-5) /hpf Urine WBC 11 H (0-5) /hpf Ur Squamous Epith Cells 14 H (0-4) /hpf Amorphous Sediment Rare H (None) /hpf Urine Bacteria Rare H (None) /hpf Urine Mucus Occasional H (None) /hpf Urine HCG, Qual (Not Detectd) 05/27/23 Range/Units 22:53 WBC (3.8-10.6) k/uL RBC (3.80-5.40) m/uL Hgb (11.4-16.0) gm/dL Hct (34.0-46.0) % MCV (80.0-100.0) fL MCH (25.0-35.0) pg MCHC (31.0-37.0) g/dL RDW (11.5-15.5) % Plt Count (150-450) k/uL MPV Neutrophils % % Lymphocytes % % Monocytes % % Eosinophils % % Basophils % % Neutrophils # (1.3-7.7) k/uL Lymphocytes # (1.0-4.8) k/uL Monocytes # (0-1.0) k/uL Eosinophils # (0-0.7) k/uL Basophils # (0-0.2) k/uL Sodium (137-145) mmol/L Potassium (3.5-5.1) mmol/L Chloride (98-107) mmol/L Carbon Dioxide (22-30) mmol/L Anion Gap mmol/L BUN (7-17) mg/dL Creatinine (0.52-1.04) mg/dL Est GFR (CKD-EPI)AfAm (>60 ml/min/1.73 sqM) Est GFR (CKD-EPI)NonAf (>60 ml/min/1.73 sqM) Glucose (74-99) mg/dL Calcium (8.4-10.2) mg/dL Total Bilirubin (0.2-1.3) mg/dL AST (14-36) U/L ALT (4-34) U/L Alkaline Phosphatase (38-126) U/L Total Protein (6.3-8.2) g/dL Albumin (3.5-5.0) g/dL Urine Color Urine Appearance (Clear) Urine pH (5.0-8.0) Ur Specific [place] (1.001-1.035) Urine Protein (Negative) Urine Glucose (UA) (Negative) Urine Ketones (Negative) Urine Blood (Negative) Urine Nitrite (Negative) Urine Bilirubin (Negative) Urine Urobilinogen (<2.0) mg/dL Ur Leukocyte Esterase (Negative) Urine RBC (0-5) /hpf Urine WBC (0-5) /hpf Ur Squamous Epith Cells (0-4) /hpf Amorphous Sediment (None) /hpf Urine Bacteria (None) /hpf Urine Mucus (None) /hpf Urine HCG, Qual Not Detected (Not Detectd) Disposition Clinical Impression: Nausea & vomiting Disposition: LEFT AGAINST MEDICAL ADVICE Condition: Undetermined Is patient prescribed a controlled substance at d/c from ED?: No Referrals: Mer Barrios [Primary Care Provider] - 1-2 days
[2023-05-27 23:03] LABS: Basophils # (A) 0.1 k/uL (0-0.2); Basophils % (A) 1 %; Eosinophils # (A) 0.1 k/uL (0-0.7); Eosinophils % (A) 1 %; HCT 43.8 % (34.0-46.0); HGB 15.1 gm/dL (11.4-16.0); Lymphocytes # (A) 1.2 k/uL (1.0-4.8); Lymphocytes % (A) 10 %; MCH 29.1 pg (25.0-35.0); MCHC 34.4 g/dL (31.0-37.0); MCV 84.4 fL (80.0-100.0); Mean Platelet Volume 8.9; Monocytes # (A) 0.6 k/uL (0-1.0); Monocytes % (A) 5 %; Neutrophils # (A) 10.1 k/uL (1.3-7.7); Neutrophils % (A) 83 %; Platelet Count 217 k/uL (150-450); RBC 5.19 m/uL (3.80-5.40); RDW 13.6 % (11.5-15.5); WBC 12.1 k/uL (3.8-10.6)
[2023-05-27 23:11] LABS: Amorphous Sediment,Urine Rare /hpf; Appearance,Urine Turbid (Clear); Bacteria,Urine Rare /hpf; Bilirubin,Urine Negative (Negative); Blood,Urine Negative (Negative); Color,Urine Light Red; Glucose,Urine (UA) Negative (Negative); Ketones,Urine Negative (Negative); Leukocyte Esterase,Urine Moderate (Negative); Mucus,Urine Occasional /hpf; Nitrite,Urine Negative (Negative); PH, Urine 8.5 (5.0-8.0); Protein,Urine 1+ (Negative); RBC,Urine 6 /hpf (0-5); Specific Gravity,Urine 1.028 (1.001-1.035); Squamous Epithelial Cell,Urine 14 /hpf (0-4); Urobilinogen,Urine <2.0 mg/dL (<2.0); WBC,Urine 11 /hpf (0-5)
[2023-05-27 23:29] LABS: ALT 23 U/L (4-34); AST 26 U/L (14-36); African American GFR (CKD) >90 (>60 ml/min/1.73 sqM); Albumin 4.3 g/dL (3.5-5.0); Alkaline Phosphatase 71 U/L (38-126); Anion Gap 8 mmol/L; Blood Urea Nitrogen 22 mg/dL (7-17); Calcium 9.6 mg/dL (8.4-10.2); Carbon Dioxide 26 mmol/L (22-30); Chloride 102 mmol/L (98-107); Glucose 91 mg/dL (74-99); Non-African American GFR(CKD) >90 (>60 ml/min/1.73 sqM); Potassium 4.8 mmol/L (3.5-5.1); Sodium 136 mmol/L (137-145); Total Bilirubin 0.6 mg/dL (0.2-1.3); Total Protein 7.8 g/dL (6.3-8.2)
== END 2023-05-28 00:32 | disposition left against medical advice (07) ==
LOC: EC 20:42
DX: R11.2 Nausea with vomiting, unspecified (principal); F17.290 Nicotine dependence, other tobacco product, uncomplicated; Z53.29 Procedure and treatment not carried out because of patient's decision for other reasons; Z86.59 Personal history of other mental and behavioral disorders
CPT/HCPCS: 36415; 80053; 81001; 81025; 85025; 99283

== ENCOUNTER 2023-05-29 19:39 | Emergency (ER) | payer OTHER ==
[2023-05-29 19:51] VITALS: TEMP 97.8
[2023-05-29 19:58] VITALS: RESP 18
[2023-05-29] MEDS ORDERED: ONDANSETRON 4 MG/2 ML VIAL IVP STA (20:39)
[2023-05-29 20:45] LABS: Basophils # (A) 0.1 k/uL (0-0.2); Basophils % (A) 1 %; Eosinophils # (A) 0.2 k/uL (0-0.7); Eosinophils % (A) 2 %; HCT 41.4 % (34.0-46.0); Lymphocytes # (A) 1.8 k/uL (1.0-4.8); Lymphocytes % (A) 25 %; MCH 28.2 pg (25.0-35.0); MCHC 33.9 g/dL (31.0-37.0); MCV 83.3 fL (80.0-100.0); Mean Platelet Volume 8.5; Monocytes # (A) 0.4 k/uL (0-1.0); Monocytes % (A) 5 %; Neutrophils # (A) 4.6 k/uL (1.3-7.7); Neutrophils % (A) 65 %; Platelet Count 214 k/uL (150-450); RBC 4.97 m/uL (3.80-5.40); RDW 13.6 % (11.5-15.5); WBC 7.1 k/uL (3.8-10.6)
[2023-05-29 20:57] LABS: ALT 17 U/L (4-34); AST 19 U/L (14-36); African American GFR (CKD) >90 (>60 ml/min/1.73 sqM); Albumin 3.9 g/dL (3.5-5.0); Alkaline Phosphatase 60 U/L (38-126); Amylase 51 U/L (30-110); Anion Gap 7 mmol/L; Blood Urea Nitrogen 17 mg/dL (7-17); Carbon Dioxide 28 mmol/L (22-30); Chloride 101 mmol/L (98-107); Glucose 93 mg/dL (74-99); Lipase 36 U/L (23-300); Non-African American GFR(CKD) 82 (>60 ml/min/1.73 sqM); Sodium 136 mmol/L (137-145); Total Bilirubin 0.7 mg/dL (0.2-1.3); Total Protein 6.9 g/dL (6.3-8.2)
[2023-05-29 21:04] LABS: Appearance,Urine Cloudy (Clear); Bacteria,Urine Rare /hpf; Bilirubin,Urine Negative (Negative); Blood,Urine Negative (Negative); Color,Urine Yellow; Glucose,Urine (UA) Negative (Negative); Ketones,Urine Negative (Negative); Leukocyte Esterase,Urine Negative (Negative); Mucus,Urine Occasional /hpf; Nitrite,Urine Negative (Negative); PH, Urine 5.5 (5.0-8.0); Protein,Urine Trace (Negative); RBC,Urine 1 /hpf (0-5); Specific Gravity,Urine 1.023 (1.001-1.035); Squamous Epithelial Cell,Urine 11 /hpf (0-4); Urobilinogen,Urine <2.0 mg/dL (<2.0); WBC,Urine 2 /hpf (0-5)
[2023-05-29] MEDS ORDERED: ONDANSETRON 4 MG ODT STARTER PACK 2 TAB BTL PO STA (21:15)
--- NOTE | 2023-05-29 21:17 | ED ---
General Adult HPI - General Chief complaint: Nausea/Vomiting/Diarrhea Stated complaint: Abd pain Time Seen by Provider: 05/29/23 20:05 Source: patient Mode of arrival: ambulatory Limitations: no limitations - History of Present Illness Initial comments: 33-year-old female presents to the ED with chief complaint of nausea. Patient states was previously on Wegovy for obesity and discontinued in February. No history of diabetes. Rates that she recently started ago began and now notes nausea due to receiving this medication. No belly pain. No fever. No other complaints at this time. States that her PCP prescribed her Zofran however was unable to fill it due to insurance issues and presented to the ED for further evaluation. - Related Data Home Medications Medication Instructions Recorded Confirmed Falmina 0.1-0.02mg Tablet 1 tab PO DAILY 12/12/20 12/12/20 Previous Rx's Medication Instructions Recorded Nicotine 14Mg/24Hr Patch [Habitrol] 1 patch TRANSDERM DAILY 30 Days 12/17/20 patch OLANZapine [ZyPREXA] 5 mg PO BID 30 Days tablet 12/17/20 Doxycycline [Vibramycin] 100 mg PO BID 7 Days #14 capsule 04/24/21 Baclofen 5 mg PO TID PRN #20 tablet 08/19/22 HYDROcodone/APAP 5-325MG [[place] 1 tab PO Q6HR PRN 3 Days #12 tab 08/19/22 5-325] Ondansetron Odt [Zofran Odt] 4 mg PO Q8HR PRN #15 tab 08/19/22 predniSONE 50 mg PO Q24H 5 Days #5 tablet 08/19/22 Lidocaine Viscous 2% [Xylocaine 5 ml MUCOUS MEM DAILY PRN #1 unit 09/21/22 Viscous] Allergies Allergy/AdvReac Type Severity Reaction Status Date / Time No Known Allergies Allergy Verified 09/21/22 20:28 Review of Systems ROS Statement: Those systems with pertinent positive or pertinent negative responses have been documented in the HPI. ROS Other: All systems not noted in ROS Statement are negative. 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 previous etoh abuse History of Any Multi-Drug Resistant Organisms: None Reported Past Surgical History: No Surgical Hx Reported Additional Past Surgical History / Comment(s): nasal Past Psychological History: Anxiety, Depression Smoking Status: Vaper Past Alcohol Use History: None Reported Past Drug Use History: None Reported General Exam Limitations: no limitations General appearance: alert, in no apparent distress Respiratory exam: Present: normal lung sounds bilaterally Cardiovascular Exam: Present: regular rate, normal rhythm GI/Abdominal exam: Present: soft (No tenderness to palpation. No rebound guarding or rigidity.) Neurological exam: Present: alert, oriented X3 Skin exam: Present: warm, dry Course Vital Signs 05/29/23 05/29/23 19:46 19:57 Temperature 97.8 F Pulse Rate 88 76 Respiratory 16 18 Rate Blood Pressure 92/65 112/70 O2 Sat by Pulse 98 98 Oximetry Medical Decision Making - Medical Decision Making Was pt. sent in by a medical professional or institution (, PA, CONTINUOUS MINER OPERATOR, urgent care, hospital, or fdc...) When possible be specific @ -No Did you speak to anyone other than the patient for history (EMS, parent, family, police, friend...)? What history was obtained from this source @ -No Did you review nursing and triage notes (agree or disagree)? Why? @ -I reviewed and agree with nursing and triage notes Were old charts reviewed (outside hosp., previous admission, EMS record, old EKG, old radiological studies, urgent care reports/EKG's, fdc records)? Report findings @ -No old charts were reviewed Differential Diagnosis (chest pain, altered mental status, abdominal pain women, abdominal pain men, vaginal bleeding, weakness, fever, dyspnea, syncope, headache, dizziness, GI bleed, back pain, seizure, CVA, palpatations, mental health, musculoskeletal)? @ -Differential Abdominal Pain Women: Appendicitis, Cholecystitis, diverticulosis, ischemic bowel, pancreatitis, hepa titis, UTI, gastroenteritis, AAA, incarcerated hernia, bowel obstruction, constipation, inflammatory bowel, hepatitis, peptic ulcer disease, splenic infarction, perforated viscus, vulvitis, ovarian torsion, PID, kidney stone, placenta abruption, this is not meant to be an all-inclusive list EKG interpreted by me (3pts min.). @ -None X-rays interpreted by me (1pt min.). @ -None done CT interpreted by me (1pt min.). @ -None done U/S interpreted by me (1pt. min.). @ -None done What testing was considered but not performed or refused? (CT, X-rays, U/S, labs)? Why? @ -None What meds were considered but not given or refused? Why? @ -None Did you discuss the management of the patient with other professionals (professionals i.e. , PA, CONTINUOUS MINER OPERATOR, lab, RT, psych nurse, social security benefits interviewer, in school suspension coordinator, teacher, ship's electronic warfare officer, counseling case manager)? Give summary @ -No Was smoking cessation discussed for >3mins.? @ -No Was critical care preformed (if so, how long)? @ -No Were there social determinants of health that impacted care today? How? (Homelessness, low income, unemployed, alcoholism, drug addiction, transportation, low edu. Level, literacy, decrease access to med. care, skilled nursing, rehab)? @ -No Was there de-escalation of care discussed even if they declined (Discuss DNR or withdrawal of care, Hospice)? DNR status @ -No What co-morbidities impacted this encounter? (DM, HTN, Smoking, COPD, CAD, Cancer, CVA, ARF, Chemo, Hep., AIDS, mental health diagnosis, sleep apnea, morb id obesity)? @ -Obesity Was patient admitted / discharged? Hospital course, mention meds given and route, prescriptions, significant lab abnormalities, going to OR and other pertinent info. @ -Discharge. Laboratory studies are unremarkable. Patient had just improvement of nausea with Zofran here. Provided starter pack and Zofran. Discharged home in stable condition. Discussed return precautions with patient who verbalized route. Undiagnosed new problem with uncertain prognosis? @ -No Drug Therapy requiring intensive monitoring for toxicity (Heparin, Nitro, Insulin, Cardizem)? @ -No Were any procedures done? @ -No Diagnosis/symptom? @ -Nausea secondary to medication Acute, or Chronic, or Acute on Chronic? @ -Acute Uncomplicated (without systemic symptoms) or Complicated (systemic symptoms)? @ -Uncomplicated Side effects of treatment? @ -No Exacerbation, Progression, or Severe Exacerbation? @ -No Poses a threat to life or bodily function? How? (Chest pain, [place], [place], pneumonia, PE, COPD, DKA, ARF, appy, cholecystitis, CVA, Diverticulitis, Homicidal, Suicidal, threat to staff... and all critical care pts) @ -No - Lab Data Result diagrams: 05/29/23 20:34 05/29/23 20:34 Lab Results 05/29/23 05/29/23 05/29/23 Range/Units 20:34 20:34 20:51 WBC 7.1 (3.8-10.6) k/uL RBC 4.97 (3.80-5.40) m/uL Hgb 14.0 (11.4-16.0) gm/dL Hct 41.4 (34.0-46.0) % MCV 83.3 (80.0-100.0) fL MCH 28.2 (25.0-35.0) pg MCHC 33.9 (31.0-37.0) g/dL RDW 13.6 (11.5-15.5) % Plt Count 214 (150-450) k/uL MPV 8.5 Neutrophils % 65 % Lymphocytes % 25 % Monocytes % 5 % Eosinophils % 2 % Basophils % 1 % Neutrophils # 4.6 (1.3-7.7) k/uL Lymphocytes # 1.8 (1.0-4.8) k/uL Monocytes # 0.4 (0-1.0) k/uL Eosinophils # 0.2 (0-0.7) k/uL Basophils # 0.1 (0-0.2) k/uL Sodium 136 L (137-145) mmol/L Potassium 4.0 (3.5-5.1) mmol/L Chloride 101 (98-107) mmol/L Carbon Dioxide 28 (22-30) mmol/L Anion Gap 7 mmol/L BUN 17 (7-17) mg/dL Creatinine 0.91 (0.52-1.04) mg/dL Est GFR (CKD-EPI)AfAm >90 (>60 ml/min/1.73 sqM) Est GFR (CKD-EPI)NonAf 82 (>60 ml/min/1.73 sqM) Glucose 93 (74-99) mg/dL Calcium 9.0 (8.4-10.2) mg/dL Total Bilirubin 0.7 (0.2-1.3) mg/dL AST 19 (14-36) U/L ALT 17 (4-34) U/L Alkaline Phosphatase 60 (38-126) U/L Total Protein 6.9 (6.3-8.2) g/dL Albumin 3.9 (3.5-5.0) g/dL Amylase 51 (30-110) U/L Lipase 36 (23-300) U/L Urine Color Yellow Urine Appearance Cloudy H (Clear) Urine pH 5.5 (5.0-8.0) Ur Specific [place] 1.023 (1.001-1.035) Urine Protein Trace H (Negative) Urine Glucose (UA) Negative (Negative) Urine Ketones Negative (Negative) Urine Blood Negative (Negative) Urine Nitrite Negative (Negative) Urine Bilirubin Negative (Negative) Urine Urobilinogen <2.0 (<2.0) mg/dL Ur Leukocyte Esterase Negative (Negative) Urine RBC 1 (0-5) /hpf Urine WBC 2 (0-5) /hpf Ur Squamous Epith Cells 11 H (0-4) /hpf Urine Bacteria Rare H (None) /hpf Urine Mucus Occasional H (None) /hpf Urine HCG, Qual (Not Detectd) 05/29/23 Range/Units 20:51 WBC (3.8-10.6) k/uL RBC (3.80-5.40) m/uL Hgb (11.4-16.0) gm/dL Hct (34.0-46.0) % MCV (80.0-100.0) fL MCH (25.0-35.0) pg MCHC (31.0-37.0) g/dL RDW (11.5-15.5) % Plt Count (150-450) k/uL MPV Neutrophils % % Lymphocytes % % Monocytes % % Eosinophils % % Basophils % % Neutrophils # (1.3-7.7) k/uL Lymphocytes # (1.0-4.8) k/uL Monocytes # (0-1.0) k/uL Eosinophils # (0-0.7) k/uL Basophils # (0-0.2) k/uL Sodium (137-145) mmol/L Potassium (3.5-5.1) mmol/L Chloride (98-107) mmol/L Carbon Dioxide (22-30) mmol/L Anion Gap mmol/L BUN (7-17) mg/dL Creatinine (0.52-1.04) mg/dL Est GFR (CKD-EPI)AfAm (>60 ml/min/1.73 sqM) Est GFR (CKD-EPI)NonAf (>60 ml/min/1.73 sqM) Glucose (74-99) mg/dL Calcium (8.4-10.2) mg/dL Total Bilirubin (0.2-1.3) mg/dL AST (14-36) U/L ALT (4-34) U/L Alkaline Phosphatase (38-126) U/L Total Protein (6.3-8.2) g/dL Albumin (3.5-5.0) g/dL Amylase (30-110) U/L Lipase (23-300) U/L Urine Color Urine Appearance (Clear) Urine pH (5.0-8.0) Ur Specific [place] (1.001-1.035) Urine Protein (Negative) Urine Glucose (UA) (Negative) Urine Ketones (Negative) Urine Blood (Negative) Urine Nitrite (Negative) Urine Bilirubin (Negative) Urine Urobilinogen (<2.0) mg/dL Ur Leukocyte Esterase (Negative) Urine RBC (0-5) /hpf Urine WBC (0-5) /hpf Ur Squamous Epith Cells (0-4) /hpf Urine Bacteria (None) /hpf Urine Mucus (None) /hpf Urine HCG, Qual Not Detected (Not Detectd) Disposition Clinical Impression: Nausea Disposition: HOME SELF-CARE Condition: Good Instructions (If sedation given, give patient instructions): Acute Nausea and Vomiting (ED) Is patient prescribed a controlled substance at d/c from ED?: No Referrals: Mer Barrios [Primary Care Provider] - 1-2 days Time of Disposition: 21:21
[2023-05-29 21:32] VITALS: BP 110/91; PULSE 78
== END 2023-05-29 21:31 | disposition home or self-care (01) ==
LOC: EC 19:39
DX: R11.2 Nausea with vomiting, unspecified (principal); Z86.59 Personal history of other mental and behavioral disorders; F17.290 Nicotine dependence, other tobacco product, uncomplicated
CPT/HCPCS: 36415; 80053; 82150; 83690; 85025; 81001; 81025; 99284; 96374; J2405; S0119

== ENCOUNTER 2023-11-10 03:34 | Emergency (ER) | payer OTHER ==
[2023-11-10 04:48] VITALS: BP 139/85; PULSE 104; RESP 20; TEMP 97.7
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
== END 2023-11-10 06:22 | disposition home or self-care (01) ==
LOC: EC 03:34
DX: S20.212A Contusion of left front wall of thorax, initial encounter (principal); F17.290 Nicotine dependence, other tobacco product, uncomplicated; Z86.59 Personal history of other mental and behavioral disorders; Y04.0XXA Assault by unarmed brawl or fight, initial encounter
CPT/HCPCS: 99283

== ENCOUNTER 2024-04-25 06:19 | Emergency (ER) | payer OTHER ==
[2024-04-25 06:25] VITALS: RESP 18
[2024-04-25 08:49] LABS: Amphetamine Screen,Urine Detected (NotDetected); Barbiturate Screen,Urine Not Detected (NotDetected); Benzodiazepines Screen,Urine Not Detected (NotDetected); Cocaine Screen,Urine Not Detected (NotDetected); Methadone Screen, Urine Not Detected (NotDetected); Opiate Screen,Urine Not Detected (NotDetected); Oxycodone Screen, Urine Not Detected (NotDetected); Phencyclidine Screen,Urine Not Detected (NotDetected); Tricyclic Antidepressant,Urine Not Detected (NotDetected); Urn Cannabinoid Scrn Not Detected (NotDetected)
--- NOTE | 2024-04-25 09:17 | ED ---
Psych HPI - General Chief Complaint: Psychiatric Symptoms Stated Complaint: Mental Health Time Seen by Provider: 04/25/24 06:26 Source: patient, RN notes reviewed Mode of arrival: ambulatory Limitations: no limitations - History of Present Illness Initial Comments: 33-year-old female presents emergency department for psychiatric evaluation. Patient states that she needs to be admitted to [facility] because she is having delusional thoughts. She states she is having visual and auditory hallucinations. Patient does admit that she abuses methamphetamines. She states that she is not suicidal homicidal denies any alcohol abuse no other drug use. Denies any physical complaints. - Related Data Home Medications Medication Instructions Recorded Confirmed Falmina 0.1-0.02mg Tablet 1 tab PO DAILY 12/12/20 12/12/20 Previous Rx's Medication Instructions Recorded Nicotine 14Mg/24Hr Patch [Habitrol] 1 patch TRANSDERM DAILY 30 Days 12/17/20 patch OLANZapine [ZyPREXA] 5 mg PO BID 30 Days tablet 12/17/20 Doxycycline [Vibramycin] 100 mg PO BID 7 Days #14 capsule 04/24/21 Baclofen 5 mg PO TID PRN #20 tablet 08/19/22 HYDROcodone/APAP 5-325MG [[place] 1 tab PO Q6HR PRN 3 Days #12 tab 08/19/22 5-325] Ondansetron Odt [Zofran Odt] 4 mg PO Q8HR PRN #15 tab 08/19/22 predniSONE 50 mg PO Q24H 5 Days #5 tablet 08/19/22 Lidocaine Viscous 2% [Xylocaine 5 ml MUCOUS MEM DAILY PRN #1 unit 09/21/22 Viscous] Cyclobenzaprine [Flexeril] 5 mg PO BID PRN 7 Days #14 tab 11/10/23 Allergies Allergy/AdvReac Type Severity Reaction Status Date / Time No Known Allergies Allergy Verified 04/25/24 06:25 Review of Systems ROS Statement: Those systems with pertinent positive or pertinent negative responses have been documented in the HPI. ROS Other: All systems not noted in ROS Statement are negative. 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 previous etoh abuse History of Any Multi-Drug Resistant Organisms: None Reported Past Surgical History: No Surgical Hx Reported Additional Past Surgical History / Comment(s): nasal Past Psychological History: Anxiety, Depression Smoking Status: Vaper Past Alcohol Use History: Occasional Past Drug Use History: Methamphetamine General Exam Limitations: no limitations General appearance: alert, in no apparent distress Head exam: Present: atraumatic, normocephalic, normal inspection Eye exam: Present: normal appearance, PERRL, EOMI. Absent: scleral icterus, conjunctival injection, periorbital swelling ENT exam: Present: normal exam, mucous membranes moist Neck exam: Present: normal inspection, full ROM. Absent: tenderness, meningismus, lymphadenopathy Respiratory exam: Present: normal lung sounds bilaterally. Absent: respiratory distress, wheezes, rales, rhonchi, stridor Cardiovascular Exam: Present: regular rate, normal rhythm, normal heart sounds. Absent: systolic murmur, diastolic murmur, rubs, gallop, clicks GI/Abdominal exam: Present: soft, normal bowel sounds. Absent: distended, tenderness, guarding, rebound, rigid Neurological exam: Present: alert, oriented X3 Psychiatric exam: Present: anxious Skin exam: Present: warm, dry, intact, normal color. Absent: rash Course Vital Signs 04/25/24 06:22 Temperature 98.1 F Pulse Rate 84 Respiratory 18 Rate Blood Pressure 128/84 O2 Sat by Pulse 100 Oximetry Medical Decision Making - Medical Decision Making Was pt. sent in by a medical professional or institution (STACEY Guzman, BLACK TOP PAVER OPERATOR, urgent care, hospital, or prison...) When possible be specific @ -No Did you speak to anyone other than the patient for history (EMS, parent, family, police, friend...)? What history was obtained from this source @ -No Did you review nursing and triage notes (agree or disagree)? Why? @ -I reviewed and agree with nursing and triage notes Were old charts reviewed (outside hosp., previous admission, EMS record, old EKG, old radiological studies, urgent care reports/EKG's, prison records)? Report findings @ -No old charts were reviewed Differential Diagnosis (chest pain, altered mental status, abdominal pain women, abdominal pain men, vaginal bleeding, weakness, fever, dyspnea, syncope, headache, dizziness, GI bleed, back pain, seizure, CVA, palpatations, mental health, musculoskeletal)? @ -Differential Mental Health Depression, anxiety, bipolar, psychosis, schizophrenia, borderline personality, situational depression, adjustment disorder, behavioral disorder, brain tumor, malingering, substance abuse, encephalopathy, medication reaction, dementia, hypothyroidism, degenerative neurologic disorder, lupus.... This is not meant to be all-inclusive list EKG interpreted by me (3pts min.). @ -None X-rays interpreted by me (1pt min.). @ -None done CT interpreted by me (1pt min.). @ -None done U/S interpreted by me (1pt. min.). @ -None done What testing was considered but not performed or refused? (CT, X-rays, U/S, labs)? Why? @ -None What meds were considered but not given or refused? Why? @ -None Did you discuss the management of the patient with other professionals (professionals i.e. , PA, BLACK TOP PAVER OPERATOR, lab, RT, psych nurse, social human services assistants, lawyer probate, teacher, retail loss prevention officer, case picker)? Give summary @ -EPS evaluated the patient and discussed case with Dr. Newell psychiatrist recommends patient to be discharged for outpatient treatment Was smoking cessation discussed for >3mins.? @ -No Was critical care preformed (if so, how long)? @ -No Were there social determinants of health that impacted care today? How? (Homelessness, low income, unemployed, alcoholism, drug addiction, transportation, low edu. Level, literacy, decrease access to med. care, prison, rehab)? @ -No Was there de-escalation of care discussed even if they declined (Discuss DNR or withdrawal of care, Hospice)? DNR status @ -No What co-morbidities impacted this encounter? (DM, HTN, Smoking, COPD, CAD, Cancer, CVA, ARF, Chemo, Hep., AIDS, mental health diagnosis, sleep apnea, morbid obesity)? @ -None Was patient admitted / discharged? Hospital course, mention meds given and route, prescriptions, significant lab abnormalities, going to OR and other pertinent info. @ -Discharge patient was evaluated by psychiatric services. Patient is positive for methamphetamines. Patient is not suicidal patient will be discharged for outpatient treatment and rehab. Undiagnosed new problem with uncertain prognosis? @ -No Drug Therapy requiring intensive monitoring for toxicity (Heparin, Nitro, Insulin, Cardizem)? @ -No Were any procedures done? @ -No Diagnosis/symptom? @ -Methamphetamine abuse Acute, or Chronic, or Acute on Chronic? @ -Acute Uncomplicated (without systemic symptoms) or Complicated (systemic symptoms)? @ -Uncomplicated Side effects of treatment? @ -No Exacerbation, Progression, or Severe Exacerbation? @ -No Poses a threat to life or bodily function? How? (Chest pain, [place], [place], pneumonia, PE, COPD, DKA, ARF, appy, cholecystitis, CVA, Diverticulitis, Homicidal, Suicidal, threat to staff... and all critical care pts) @ -No - Lab Data Lab Results 04/25/24 Range/Units 06:26 Urine Opiates Screen Not Detected (NotDetected) Ur Oxycodone Screen Not Detected (NotDetected) Urine Methadone Screen Not Detected (NotDetected) Ur Barbiturates Screen Not Detected (NotDetected) U Tricyclic Antidepress Not Detected (NotDetected) Ur Phencyclidine Scrn Not Detected (NotDetected) Ur Amphetamines Screen Detected H (NotDetected) U Methamphetamines Scrn Detected H (NotDetected) U Benzodiazepines Scrn Not Detected (NotDetected) Urine Cocaine Screen Not Detected (NotDetected) U Marijuana (THC) Screen Not Detected (NotDetected) Disposition Clinical Impression: Methamphetamine abuse, Psychosis Disposition: HOME SELF-CARE Condition: Stable Instructions (If sedation given, give patient instructions): Methamphetamine Abuse (ED) Additional Instructions: Please return to the Emergency Department if symptoms worsen or any other concerns. Is patient prescribed a controlled substance at d/c from ED?: No Referrals: Mer Barrios [Primary Care Provider] - 1-2 days Time of Disposition: 09:45
[2024-04-25 09:47] VITALS: BP 113/80; PULSE 86; TEMP 97.9
== END 2024-04-25 10:08 | disposition home or self-care (01) ==
LOC: EC 06:19
DX: F15.10 Other stimulant abuse, uncomplicated (principal); F29 Unspecified psychosis not due to a substance or known physiological condition; F17.290 Nicotine dependence, other tobacco product, uncomplicated
CPT/HCPCS: 80306; 82075; 99285

== ENCOUNTER 2024-08-23 19:21 | Emergency (ER) | payer OTHER ==
[2024-08-23 19:27] VITALS: RESP 18
--- NOTE | 2024-08-23 19:50 | ED ---
ENT HPI - General Chief complaint: ENT Stated complaint: Ear issues Time Seen by Provider: 08/23/24 19:34 Source: patient, RN notes reviewed Mode of arrival: ambulatory Limitations: no limitations - History of Present Illness Initial comments: This is a 34-year-old female presenting for watery drainage from right ear x 5 days. Endorses associated pressure but denies pain. Endorses recent times send in hot tub. Denies changes in hearing, fever, dizziness, nasal congestion. MD complaint: other (Gonorrhea) Onset/Timin -: days(s) Location: R ear Context- Ear: recent swimming - Related Data Home Medications Medication Instructions Recorded Confirmed Falmina 0.1-0.02mg Tablet 1 tab PO DAILY 12/12/20 12/12/20 Previous Rx's Medication Instructions Recorded Nicotine 14Mg/24Hr Patch [Habitrol] 1 patch TRANSDERM DAILY 30 Days 12/17/20 patch OLANZapine [ZyPREXA] 5 mg PO BID 30 Days tablet 12/17/20 Doxycycline [Vibramycin] 100 mg PO BID 7 Days #14 capsule 04/24/21 Baclofen 5 mg PO TID PRN #20 tablet 08/19/22 HYDROcodone/APAP 5-325MG [[place] 1 tab PO Q6HR PRN 3 Days #12 tab 08/19/22 5-325] Ondansetron Odt [Zofran Odt] 4 mg PO Q8HR PRN #15 tab 08/19/22 predniSONE 50 mg PO Q24H 5 Days #5 tablet 08/19/22 Lidocaine Viscous 2% [Xylocaine 5 ml MUCOUS MEM DAILY PRN #1 unit 09/21/22 Viscous] Cyclobenzaprine [Flexeril] 5 mg PO BID PRN 7 Days #14 tab 11/10/23 Ofloxacin 0.3% Ophth Soln [Ocuflox 10 drops RIGHT EAR DAILY #10 ml 08/23/24 Ophth Soln] Allergies Allergy/AdvReac Type Severity Reaction Status Date / Time No Known Allergies Allergy Verified 08/23/24 19:27 Review of Systems ROS Statement: Those systems with pertinent positive or pertinent negative responses have been documented in the HPI. ROS Other: All systems not noted in ROS Statement are negative. 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 previous etoh abuse History of Any Multi-Drug Resistant Organisms: None Reported Past Surgical History: No Surgical Hx Reported Additional Past Surgical History / Comment(s): nasal Past Psychological History: Anxiety, Depression Smoking Status: Vaper Past Alcohol Use History: Occasional Past Drug Use History: Methamphetamine General Exam Limitations: no limitations General appearance: alert, in no apparent distress Head exam: Present: atraumatic, normocephalic, normal inspection Eye exam: Present: normal appearance, PERRL, EOMI. Absent: scleral icterus, c onjunctival injection, periorbital swelling ENT exam: Present: normal exam, mucous membranes moist, other (Right ear canal shows some otorrhea but no edema or significant TM bulging. Negative pain with right pinna traction. Negative right ear proptosis or right mastoid tenderness/erythema) Neck exam: Present: normal inspection. Absent: tenderness, meningismus, lymphadenopathy Respiratory exam: Present: normal lung sounds bilaterally. Absent: respiratory distress, wheezes, rales, rhonchi, stridor Cardiovascular Exam: Present: regular rate, normal rhythm, normal heart sounds. Absent: systolic murmur, diastolic murmur, rubs, gallop, clicks GI/Abdominal exam: Present: soft, normal bowel sounds. Absent: distended, tenderness, guarding, rebound, rigid Extremities exam: Present: normal inspection, full ROM, normal capillary refill. Absent: tenderness, pedal edema, joint swelling, calf tenderness Back exam: Present: normal inspection Neurological exam: Present: alert, oriented X3, CN II-XII intact Psychiatric exam: Present: normal affect, normal mood Skin exam: Present: warm, dry, intact, normal color. Absent: rash Course Vital Signs 08/23/24 08/23/24 19:24 20:08 Temperature 97.8 F 97.6 F Pulse Rate 101 H 87 Respiratory 18 18 Rate Blood Pressure 113/67 120/81 O2 Sat by Pulse 96 97 Oximetry Medical Decision Making - Medical Decision Making Was pt. sent in by a medical professional or institution (, PA, STRAW HAT BRIM RAISER OPERATOR, urgent care, hospital, or [facility]...) When possible be specific @ -No Did you speak to anyone other than the patient for history (EMS, parent, family, police, friend...)? What history was obtained from this source @ -No Did you review nursing and triage notes (agree or disagree)? Why? @ -I reviewed and agree with nursing and triage notes Were old charts reviewed (outside hosp., previous admission, EMS record, old EKG, old radiological studies, urgent care reports/EKG's, [facility] records)? Report findings @ -No old charts were reviewed Differential Diagnosis (chest pain, altered mental status, abdominal pain women, abdominal pain men, vaginal bleeding, weakness, fever, dyspnea, syncope, headache, dizziness, GI bleed, back pain, seizure, CVA, palpatations, mental health, musculoskeletal)? @ -Otitis externa, otitis media, TM perforation, mastoiditis, acoustic neuroma, Mnire's disease EKG interpreted by me (3pts min.). @ -Not done X-rays interpreted by me (1pt min.). @ -None done CT interpreted by me (1pt min.). @ -None done U/S interpreted by me (1pt. min.). @ -None done What testing was considered but not performed or refused? (CT, X-rays, U/S, labs)? Why? @ -None What meds were considered but not given or refused? Why? @ -None Did you discuss the management of the patient with other professionals (professionals i.e. , PA, STRAW HAT BRIM RAISER OPERATOR, lab, RT, psych nurse, social work manager, rn heart, teacher, policy officer, case assembler)? Give summary @ -No Was smoking cessation discussed for >3mins.? @ -No Was critical care preformed (if so, how long)? @ -No Were there social determinants of health that impacted care today? How? (Homelessness, low income, unemployed, alcoholism, drug addiction, transportation, low edu. Level, literacy, decrease access to med. care, long-term, rehab)? @ -No Was there de-escalation of care discussed even if they declined (Discuss DNR or withdrawal of care, Hospice)? DNR status @ -No What co-morbidities impacted this encounter? (DM, HTN, Smoking, COPD, CAD, Cancer, CVA, ARF, Chemo, Hep., AIDS, mental health diagnosis, sleep apnea, morbid obesity)? @ -None Was patient admitted / discharged? Hospital course, mention meds given and route, prescriptions, significant lab abnormalities, going to OR and other pertinent info. @ -Discharge. Ofloxacin otic drops sent to pharmacy. Undiagnosed new problem with uncertain prognosis? @ -No Drug Therapy requiring intensive monitoring for toxicity (Heparin, Nitro, Insulin, Cardizem)? @ -No Were any procedures done? @ -No Diagnosis/symptom? @ -Acute otitis externa Acute, or Chronic, or Acute on Chronic? @ -Acute Uncomplicated (without systemic symptoms) or Complicated (systemic symptoms)? @ -Uncomplicated Side effects of treatment? @ -No Exacerbation, Progression, or Severe Exacerbation? @ -No Poses a threat to life or bodily function? How? (Chest pain, [place], [place], pneumonia, PE, COPD, DKA, ARF, appy, cholecystitis, CVA, Diverticulitis, Homicidal, Suicidal, threat to staff... and all critical care pts) @ -No Disposition Clinical Impression: Otitis externa Disposition: HOME SELF-CARE Condition: Good Instructions (If sedation given, give patient instructions): Swimmer's Ear (ED) Prescriptions: Ofloxacin 0.3% Ophth Soln [Ocuflox Ophth Soln] 10 drops RIGHT EAR DAILY #10 ml Is patient prescribed a controlled substance at d/c from ED?: No Referrals: Robbie Cisneros [Primary Care Provider] - 1-2 days Time of Disposition: 19:49
[2024-08-23 20:09] VITALS: BP 120/81; PULSE 87; TEMP 97.6
== END 2024-08-23 20:09 | disposition home or self-care (01) ==
LOC: EC 19:21
CPT/HCPCS: 99282